=== PATIENT | male | born 1950 | race Caucasian/White ===

== ENCOUNTER 2018-01-03 19:29 | Inpatient (IN) | payer OTHER ==
[~2018-01-03] VITALS: Ht 170.2 cm; Wt 45.4 kg
[2018-01-03 19:30] VITALS: BP 122/77
--- NOTE | 2018-01-03 19:30 | NUR ---
PATIENT BIB [facility] AND TRIAGED TO ER LOBBY.
--- NOTE | 2018-01-03 20:00 | NUR ---
PATIENT EXPRESSING WISH TO BE SEEN. PT LYING ON FLOOR. SECURITY CALLED.
[2018-01-03 21:21] LABS: HEMATOCRIT 44.6 % (36-52); HEMOGLOBIN 14.7 g/dL (12.0-18.0); MEAN CORPUSCULAR HEMOGLOBIN 29 pg (27-31); MEAN CORPUSCULAR HGB CONC 33 g/dL (33-37); MEAN CORPUSCULAR VOLUME 87.4 fL (80-94); PLATELET COUNT (AUTO) 249 K/uL (140-450); RED BLOOD CELL COUNT(AUTO) 5.11 MIL/uL (4.20-6.10); WHITE BLOOD COUNT (AUTO) 17.6 K/uL (4.8-10.8)
[2018-01-03 21:32] LABS: ANION GAP 12.9 (8-16); CARBON DIOXIDE 31.4 mmol/L (21-32); CREATININE 1.1 mg/dL (0.7-1.3); POTASSIUM 4.3 mmol/L (3.5-5.1)
[2018-01-03 21:38] LABS: TOTAL BILIRUBIN 0.6 mg/dL (0.0-1.0)
[2018-01-03 21:49] LABS: LYMPHOCYTES % (MANUAL) 1 % (20-46); MONOCYTES % (MANUAL) 2 % (5-12)
--- NOTE | 2018-01-03 22:10 | NUR ---
67/M C/O N/V X 3 DAYS. ALSO C/O 10/10 SHARP PAIN TO THROAT. DENIES FEVER, REPORTS CHILLS. DENIES CP/SOB. DENIES HEMATEMESIS. PT BEING UNCOOPERATIVE DURING ASSESSMENT. PMH: THROAT CANCER
[2018-01-03] MEDS ORDERED: MORPHINE SULFATE 4 MG/ML SYR IVP ONE (22:25)
[2018-01-03] MEDS ORDERED: ONDANSETRON 4 MG/2 ML VIAL IVP ONE (22:25)
[2018-01-03] MEDS ORDERED: NACL 0.9% 1,000 ML IV ONE (22:25)
--- NOTE | 2018-01-03 23:10 | NUR ---
UNABLE TO ASSESS SKIN, PT REFUSES TO BE ASSESSED. ALSO REFUSES TO CHANGE INTO GOWN.
--- NOTE | 2018-01-04 00:25 | NUR ---
Patient will be admitted to care of [facility]. Admited to TELE. Will go to room 105A. Belongings list completed. BEDSIDE Report to arturo ZAFAR.
[2018-01-04] MEDS ORDERED: ACETAMINOPHEN 325 MG TAB PO PRN (00:30)
[2018-01-04] MEDS ORDERED: HYDROcodone/APAP 7.5/325 MG 1 TAB PO PRN (00:30)
--- NOTE | 2018-01-04 00:30 | NUR ---
ADMITTED PT FROM ER VIA GISSEL. AAOX3, UNCOOPERATIVE. PT REFUSED SKIN CHECK, DOESN'T WANT TO BE TOUCHED. REFUSED MRSA SWAB. REFUSED TO ANSWER ADMITTING QUESTIONS. NO VOMITING AT THIS TIME. NO C/O PAIN. ORIENTED PT TO ROOM. ON NPO. PT ASKED FOR ICE AND JUICE. DR CARRILLO STATED IT'S OKAY TO GIVE PT ICE BUT NOT JUICE. ICE GIVEN TO PT. SAFETY PRECAUTION IN PLACE. CALL LIGHT WITHIN REACH.
[2018-01-04] MEDS ORDERED: LORazepam 2 MG/ML VIAL IM/IVP ONE (00:40)
[2018-01-04] MEDS ORDERED: BENZOCAINE 20% 57 GM CAN MC ONE (00:40)
[2018-01-04] MEDS: NACL 0.45% 1,000 ML IV SCH ×3 (00:45→20:45)
[2018-01-04] MEDS: PIPER/TAZO 3.375GM/D5W PREMIX 50 ML IV SCH ×5 (01:00→23:15)
--- NOTE | 2018-01-04 01:00 | NUR ---
PT KEEPS ON SCREAMING IN THE ROOM. WHEN ASKED WHAT HE WANTS, HE SAID JUICE. EXPLAINED TO PT THAT HE CANNOT HAVE JUICE, THE DOCTOR ORDERED NPO . HE YELLED ON ME AND THREW THE ICE ON THE FLOOR.
[2018-01-04 01:09] LABS: CHOL/HDL RATIO 4.9 (1-4.5); FREE T4 (FREE THYROXINE) 0.99 ng/dL (0.76-1.46); PHOSPHORUS 3.9 mg/dL (2.5-4.9); THYROID STIMULATING HORMONE 2.82 uIU/mL (0.34-3.74)
[2018-01-04 01:21] LABS: PROTHROMBIN TIME 11.3 secs (10.8-13.4)
[2018-01-04] MEDS ORDERED: PIPERACILLIN/TAZOBACTAM 3.375 GM VIAL IV ONE ×2 (01:55→05:03)
[2018-01-04 02:00] VITALS: BP 109/61
--- NOTE | 2018-01-04 03:30 | NUR ---
PT SLEEPING BUT AROUSABLE. NO S/S OF RESP DISTRESS NOTED. NO S/S OF PAIN. SAFETY PRECAUTION IN PLACE. CALL LIGHT WITHIN REACH.
[2018-01-04 04:00] VITALS: BP 125/69
--- NOTE | 2018-01-04 05:15 | NUR ---
PT SLEEPING BUT EASILY AROUSABLE. NO S/S OF PAIN OR DISCOMFORT. NO DISTRESS NOTED. SAFETY PRECAUTION IN PLACE. CALL LIGHT WITHIN REACH.
--- NOTE | 2018-01-04 06:00 | NUR ---
PT WAS ASKED IF IT'S OKAY TO DO X-RAY AND DRAW BLOOD, PT SAID "YES" AND WENT BACK TO SLEEP. NO VOMITING NOTED AT THIS TIME. NO S/S OF PAIN.
[2018-01-04 06:43] LABS: HEMATOCRIT 41.4 % (36-52); HEMOGLOBIN 13.6 g/dL (12.0-18.0); MEAN CORPUSCULAR HEMOGLOBIN 29 pg (27-31); MEAN CORPUSCULAR HGB CONC 33 g/dL (33-37); MEAN CORPUSCULAR VOLUME 87.5 fL (80-94); PLATELET COUNT (AUTO) 190 K/uL (140-450); RED BLOOD CELL COUNT(AUTO) 4.73 MIL/uL (4.20-6.10); RED CELL DISTRIBUTION WIDTH 17.2 % (11.6-13.7); WHITE BLOOD COUNT (AUTO) 12.9 K/uL (4.8-10.8)
--- NOTE | 2018-01-04 06:53 | NUR ---
PATIENT HAS BEEN SCREENED AND CATEGORIZED HIGH NUTRITION RISK. PATIENT WILL BE SEEN WITHIN 1-2 DAYS OF ADMISSION. 01/04/18-01/05/18 LOKI PETERSON MS, RDN
[2018-01-04 07:05] LABS: ANION GAP 12.4 (8-16); CARBON DIOXIDE 28.5 mmol/L (21-32); POTASSIUM 3.9 mmol/L (3.5-5.1)
[2018-01-04 07:13] LABS: MAGNESIUM 2.8 mg/dL (1.8-2.4)
--- NOTE | 2018-01-04 07:15 | NUR ---
ENDORSED PT TO DAY SHIFT NURSE. PT IN STABLE CONDITION. PT STILL SLEEPING BUT EASILY AROUSABLE. ENDORSED CT SCAN CONSENT TO BE SIGNED BY PT.
--- NOTE | 2018-01-04 07:20 | NUR ---
RECEIVED REPORT ABOUT THE PT FROM PROPERTY FIELD INSPECTOR NURSE, PT IS ASLEEP LYING ON THE BED WITH A PERIPHERAL LINE ON LEFT HAND G. 22, NS AT 100ML/HR. NO SIGN OF DISTRESS NOTED. CALL LIGHT WITHIN REACH. WILL MONITOR.
[2018-01-04 07:27] LABS: EOSINOPHILS % (MANUAL) 1 % (0-4); LYMPHOCYTES % (MANUAL) 6 % (20-46); MONOCYTES % (MANUAL) 3 % (5-12)
--- NOTE | 2018-01-04 07:45 | NUR ---
PT IS ASLEEP ON THE BED AND VITAL SIGNS TAKEN, NO SIGN OF DISTRESS NOTED. CALL LIGHT WITHIN REACH. WILL MONITOR..
[2018-01-04 08:00] VITALS: BP 125/73
[2018-01-04] MEDS: LACTOBACILLUS RHAMNOSUS GG 1 EACH CAP PO SCH ×2 (09:00→09:28)
[2018-01-04] MEDS: DOCUSATE SODIUM 100 MG GELCAP PO SCH ×3 (09:00→21:00)
--- NOTE | 2018-01-04 09:00 | NUR ---
PT REFUSED TO TAKE THE AM MEDICATIONS AND REFUSED TO SIGN THE CONSENT FOR CT SCAN OF ABDOMEN AND PELVIS. PT WENT BACK TO SLEEP. NO SIGN OF DISTRESS NOTED. CALL LIGHT WITHIN REACH. WILL MONITOR.
--- NOTE | 2018-01-04 11:07 | NUR ---
01/04/18 RD INITIAL ASSESSMENT COMPLETED PLEASE REFER TO NUTRITION ASSESSMENT UNDER CARE ACTIVITY FOR ESTIMATED NUTRITIONAL NEEDS. RD RECOMMENDATIONS: 1. CONTINUE NPO MEDICALLY APPROPRIATE. 2. CONSIDER INITIATING REGULAR DIET TOLERATED. 3. CONSULT RDN PRN. 4. RD WILL F/U 2-3 DAYS; HIGH RISK. LOKI PETERSON MS, RDN
[2018-01-04 11:22] LABS: PROTHROMBIN TIME 11.7 secs (10.8-13.4)
[2018-01-04 12:00] VITALS: BP 162/96
--- NOTE | 2018-01-04 14:00 | NUR ---
PT PULLED HIS IV LINE OUT AND STARTED TO BE COMBATIVE AND SCREAMING
[2018-01-04] MEDS ORDERED: PROMETHAZINE 25 MG/ML VIAL IM PRN (15:55)
[2018-01-04 16:00] VITALS: BP 134/89
--- NOTE | 2018-01-04 16:00 | NUR ---
PT IS SEATED ON A WHEELCHAIR AND ROAMING AROUND THE STATION AND VOMITED, PT IS NOT BEING COMPLIANT WITH THE MEDICATIONS AND WITH THE DOCTOR.
--- NOTE | 2018-01-04 16:39 | NUR ---
PT REFUSED TO HAVE THE TELE MONITOR PUT ON HIM.
--- NOTE | 2018-01-04 19:05 | NUR ---
ENDORSED PT TO AUTOMOTIVE WELDER NURSE FOR CONTINUITY OF CARE, PT IS ASLEEP ON THE BED AND IS STABLE AT THIS TIME.
--- NOTE | 2018-01-04 19:15 | NUR ---
RECEIVED PATIENT REPORT AT BEDSIDE. PATIENT ASLEEP BUT AROUSABLE. NO S/S OF DISTRESS. PATIENT ON ROOM AIR. IV LINE NOTED TO THE RIGHT FOREARM WITH IVF INFUSING WELL. BED LOWERED WITH CALL LIGHT WITHIN REACH. WILL CONTINUE TO MONITOR
[2018-01-04 20:00] VITALS: BP 140/84
--- NOTE | 2018-01-04 23:45 | NUR ---
PATIENT AWAKE AND STOOD UP TO VOID. PATIENT PROVIDED WITH URINAL. PATIENT VOIDED 100 ML OF CLEAR YELLOW URINE
[2018-01-05] VITALS: BP 147/95
--- NOTE | 2018-01-05 | NUR ---
PT C/O THROAT PAIN. PATIENT OFFERED NORCO PRN BUT REFUSED. NOTIFIED DR SHEEHAN. TORADOL ORDERED FOR PAIN BUT PATIENT BECOMES MORE AGITATED AND REQUESTS FOR MORPHINE. NOTIFIED DR SHEEHAN. TO TALK TO THE PATIENT
--- NOTE | 2018-01-05 01:30 | NUR ---
PATIENT ASLEEP IN BED. NO S/S OF DISTRESS NOTED
--- NOTE | 2018-01-05 04:39 | NUR ---
PER DR SHEEHAN, ANIKA TO ADMINISTER PROMETHAZINE VIA IVP
[2018-01-05] MEDS: PROMETHAZINE 25 MG/ML VIAL IVP PRN ×3 (04:41→23:52)
[2018-01-05] MEDS: PIPER/TAZO 3.375GM/D5W PREMIX 50 ML IV SCH ×4 (06:25→23:51)
[2018-01-05] MEDS: NACL 0.45% 1,000 ML IV SCH ×2 (06:45→07:11)
--- NOTE | 2018-01-05 07:23 | NUR ---
PATIENT REPORT GIVEN AT BEDSIDE. PATIENT ENDORSED IN STABLE CONDITION
--- NOTE | 2018-01-05 07:30 | NUR ---
RECEIVED PT REPORT FROM METAL SHEET ROLLER OPERATOR NURSE. PT SLEEPING, EASILY AROUSED, ASKING FOR ICE AND WATER. NO S/S OF DISTRESS. IV LINE NOTED TO THE RIGHT FOREARM,22G,WITH IVF INFUSING WELL. IV CATH 20G ON RIGHT FA, SL. BED LOWERED WITH CALL LIGHT WITHIN REACH. WILL CONTINUE TO MONITOR
[2018-01-05 07:45] LABS: CARBON DIOXIDE 25.7 mmol/L (21-32); POTASSIUM 3.7 mmol/L (3.5-5.1)
[2018-01-05 07:46] LABS: MAGNESIUM 2.5 mg/dL (1.8-2.4); PHOSPHORUS 2.8 mg/dL (2.5-4.9)
--- NOTE | 2018-01-05 07:50 | NUR ---
VITALS TAKEN, PT HAD ICE AND WATER BUT STILL VOMITING. PROVIDED MORE VOMITING BAGS.
[2018-01-05 08:00] VITALS: BP 140/81
[2018-01-05 08:13] LABS: HEMATOCRIT 37.9 % (36-52); HEMOGLOBIN 12.4 g/dL (12.0-18.0); MEAN CORPUSCULAR HEMOGLOBIN 29 pg (27-31); MEAN CORPUSCULAR HGB CONC 33 g/dL (33-37); MEAN CORPUSCULAR VOLUME 87.7 fL (80-94); PLATELET COUNT (AUTO) 170 K/uL (140-450); RED BLOOD CELL COUNT(AUTO) 4.32 MIL/uL (4.20-6.10); RED CELL DISTRIBUTION WIDTH 16.8 % (11.6-13.7); WHITE BLOOD COUNT (AUTO) 13.3 K/uL (4.8-10.8)
[2018-01-05 08:17] LABS: BASOPHILS % (MANUAL) 0 % (0-2); EOSINOPHILS % (MANUAL) 0 % (0-4); LYMPHOCYTES % (MANUAL) 3 % (20-46); MONOCYTES % (MANUAL) 5 % (5-12)
[2018-01-05] MEDS: LACTOBACILLUS RHAMNOSUS GG 1 EACH CAP PO SCH (09:00)
[2018-01-05] MEDS: DOCUSATE SODIUM 100 MG GELCAP PO SCH ×3 (09:00→21:00)
--- NOTE | 2018-01-05 09:20 | NUR ---
PT TOOK CULTURELLE AND COLACE BUT LATER VOMITED OUT.
--- NOTE | 2018-01-05 09:50 | NUR ---
PT EATING MASHED POTATO AND ENSURE, BUT CONTINUES TO VOMIT.
--- NOTE | 2018-01-05 10:00 | NUR ---
C/O WHOLE BODY PAIN 9/10 AND ASKING FOR MORPHINE. WILL ADMINISTER PAIN MEDS ORDERED.
[2018-01-05] MEDS: MORPHINE SULFATE 4 MG/ML SYR IVP PRN ×4 (10:09→23:58)
--- NOTE | 2018-01-05 11:20 | NUR ---
PROVIDED PT WITH PHENERGAN FOR VOMITING, PT REFUSED AND ASKING FOR MORPHINE AGAIN. C/O OF WHOLE BODY PAIN 06/18, WILL ADMINISTER PAIN MED ORDERED.
[2018-01-05] MEDS: KETOROLAC 30 MG/ML VIAL IM PRN (11:47)
--- NOTE | 2018-01-05 12:50 | NUR ---
IVPB ADMINISTERED, PT SLEEPING, EASILY AROUSED, NO S/S OF ACUTE DISTRESS, BREATHING EVEN AND UNLABORED.
--- NOTE | 2018-01-05 14:00 | NUR ---
PER PT REQUEST, NEW T SHIRT PROVIDED, NEW BLANKETS, SOCKS AND UNDERWEAR PROVIDED.
--- NOTE | 2018-01-05 15:50 | NUR ---
PT WANTS PEANUT BUTTER JELLY, EXPLAINED TO PT THAT HE CAN'T HAVE THAT RIGHT NOW BECAUSE DR ORDERED CLEAR LIQ BUT WILL RELAY THE REQUEST TO DR. PT GOT AGITATED AND STOOD UP TRYING TO SWING HIS ARM. TOLD PT TO SIT DOWN OR WILL CALL SECURITY. PT WENT BACK TO BED, PT REFUSED VITAL SIGNS CHECK. WILL TRY AGAIN LATER.
--- NOTE | 2018-01-05 16:30 | NUR ---
PT IS SLEEPING IN BED, BREATHING EVEN AND UNLABORED. NO DISTRESS NOTED.
--- NOTE | 2018-01-05 17:19 | NUR ---
PT STILL SLEEPING, NO DISTRESS NOTED. RESPIRATION RATE 18.
--- NOTE | 2018-01-05 17:50 | NUR ---
PT WALKED TO THE NURSING STATION, DEMANDING FOOD, HOWEVER, DINNER TRAY HAS ALREADY BEEN SENT TO THE ROOM. PT WANTS SPECIFICALLY MASHED POTATO AND MEATLOAF. PT IS ON CLEAR LIQ DIET. TALKED TO DR MARIE WHO CONTACTED DR STEVEN WHO STATED THAT MASHED POTATO ONLY. PT VOMITED ON THE FLOOR, REFUSING TO GO BACK TO HIS ROOM. SECURITY WAS CALLED.
--- NOTE | 2018-01-05 17:56 | NUR ---
MADE DR MARIE AWARE THAT PT WANTS TO TALK TO THE DOCTOR.
--- NOTE | 2018-01-05 18:30 | NUR ---
SECURITY HELPED PT WENT BACK TO THE ROOM. PT ATE MASHED POTATO AND LATER VOMITED OVER THE WHEELCHAIR.
--- NOTE | 2018-01-05 19:05 | NUR ---
RECEIVED PATIENT REPORT AT BEDSIDE. PATIENT AWAKE, ALERT BUT AGITATED. PATIENT SHOUTING FOR FOOD. PATIENT HAS A BOWL OF MASHED POTATOES AT BEDSIDE. PER MORNING NURSE. PATIENT HAS BEEN VOMITING ALL DAY AND HAS NOT BEEN TOLERATING ANYTHING BY MOUTH WELL. PATIENT SEEN GAGGING INTERMITTENTLY WITH THICK CLEAR LIQUID COMING OUT OF HIS MOUTH. PATIENT CURRENTLY ON CLEAR LIQUID DIET. WILL NOTIFY THE DR. PATIENT ON ROOM AIR. NO SOB. WILL CONTINUE TO MONITOR
--- NOTE | 2018-01-05 19:15 | NUR ---
ENDORSED PT TO MEDIATION COMMISSIONER RN AT BEDSIDE. PT IN STABLE CONDITION.
--- NOTE | 2018-01-05 19:41 | NUR ---
PATIENT IN THE HALLWAY, AGITATED AND ARGUING WITH THE DR TO HAVE SOLID FOOD DIET ORDERED FOR HIM DESPITE HIM NOT TOLERATING PO. PATIENT SEEN GAGGING IN THE HALLWAY AND WAS OFFERED TO BE ESCORTED BACK TO HIS ROOM. PATIENT STATES, "GET AWAY FROM ME BEFORE I KNOCK YOU OUT."
[2018-01-05 21:20] VITALS: BP 129/73
--- NOTE | 2018-01-05 23:52 | NUR ---
PATIENT AWAKE AND AGITATED. PATIENT DEMANDED ICE WATER. ICE WATER GIVEN AND PATIENT STARTED GAGGING SOON HE TOOK SIPS FROM THE CUP. CLEAR LIQUID EMESIS COMING OUT OF HIS MOUTH NOTED. PATIENT INSTRUCTED TO HOLD OFF ON THE WATER BUT PATIENT BECAME MORE AGITATED AND REQUESTED TO HAVE MASHED POTATOES AND PUDDING. PATIENT TOLD THAT HE IS ON A CLEAR LIQUID DIET. PATIENT BECAME MORE ANGRY AND SENDS THE NURSE OUT OF THE ROOM.
[2018-01-06] VITALS: BP 128/72
--- NOTE | 2018-01-06 01:28 | NUR ---
PATIENT ASLEEP IN BED. NO S/S OF DISTRESS NOTED
--- NOTE | 2018-01-06 04:30 | NUR ---
PATIENT ASLEEP IN BED. NO S/S OF DISTRESS
[2018-01-06] MEDS: NACL 0.45% 1,000 ML IV SCH ×3 (05:24→22:45)
[2018-01-06] MEDS: PIPER/TAZO 3.375GM/D5W PREMIX 50 ML IV SCH ×3 (05:24→18:00)
[2018-01-06] MEDS: MORPHINE SULFATE 4 MG/ML SYR IVP PRN ×2 (05:35→10:32)
--- NOTE | 2018-01-06 07:16 | NUR ---
RECEIVED REPORT FROM NIGHTSHIFT NURSE AT BEDSIDE. PATIENT ASLEEP BUT AROUSABLE TO NAME. PATIENT APPEARS AGITATED AT THIS TIME. PATIENT SHOWS NO SIGNS OF RESPIRATORY DISTRESS. PATIENT HAS TWO IV ACCESS POINTS ON BILATERAL ARMS. .45% NS RUNNING INTO PATIENT'S LEFT IV ACCESS 22G FOREARM. PATIENT'S BED IN LOWEST POSITION AT THIS TIME. UPDATED BOARD IN PATIENT'S ROOM AND PUT CALL LIGHT WITHIN REACH OF PATIENT. WILL CONTINUE TO MONITOR PATIENT.
--- NOTE | 2018-01-06 07:16 | NUR ---
PATIENT REPORT GIVEN AT BEDSIDE. PATIENT ENDORSED IN STABLE CONDITION
--- NOTE | 2018-01-06 07:55 | NUR ---
ASKED PATIENT IF I CAN TAKE HIS VITAL SIGNS AND PATIENT REFUSED. PATIENT APPEARS AGITATED. PATIENT VOMITING MINIMAL LIGHT RED VOMITUS AT THIS TIME. WILL CONTINUE TO MONITOR PATIENT.
--- NOTE | 2018-01-06 08:20 | NUR ---
PATIENT AT NURSING STATION AT THIS TIME. PATIENT SEEMS AGITATED. WILL CONTINUE TO MONITOR PATIENT.
[2018-01-06] MEDS: KETOROLAC 30 MG/ML VIAL IM PRN (08:47)
--- NOTE | 2018-01-06 08:58 | NUR ---
CM NOTE INITIAL REVIEW FAXED TO [facility] [phone] PH# [phone] [place] EXT [phone] AND TO [facility] [phone] PH# [phone]
[2018-01-06] MEDS: LACTOBACILLUS RHAMNOSUS GG 1 EACH CAP PO SCH (09:00)
[2018-01-06] MEDS: DOCUSATE SODIUM 100 MG GELCAP PO SCH ×2 (09:00→21:00)
[2018-01-06 10:32] VITALS: BP 127/88
--- NOTE | 2018-01-06 10:48 | NUR ---
PARCEL POST ORDER CLERK NOTE [id number] Bedside swallow evaluation complete following clearance by RN, please refer to PARCEL POST ORDER CLERK evaluation for full report. Pt was very agitated throughout evaluation, often threatening staff w/violence and calling them names. Pt demonstrated functional swallow w/no overt s/sx of aspiration on all tested consistencies, however demonstrated emesis of small bolus x3 following conclusion of swallow evaluation. Recommend: -Regular texture + thin liquids for QOL purposes once cleared for PO diet. Pt has demonstrated awareness of present condition, risks of aspiration/choking, and continues to mandate for PO diet. -STRICT aspiration/GERD precautions as noted: 1) Upright during and 20 min after intake. 2) Pt can feed self, encourage small bites/slow rate/alternating bites and sips. 3) Stop if pulmonary distress noted only. PVE w/rounding MD Bill and MD Oneill + nursing staff, education provided re: results and recommendations following esophagram. Nursing to continue to follow, ST f/u not indicated. G8996: CI G8997: CI G8998: CI Swallow NOMS 4
--- NOTE | 2018-01-06 10:53 | NUR ---
PATIENT IS AGITATED AT THIS TIME. ABLE TO PROVIDE PATIENT LITTLE ICE AND WATER AT THIS TIME. AWAITING RADIOLOGIST AND PROCEDURE AT 1 PM. PROVIDED PATIENT WITH ADDITIONAL PILLOW FOR COMFORT.
--- NOTE | 2018-01-06 11:00 | NUR ---
Assembly Associate Notes: I Attempted to meet with patient during screen, attempting to get accurate information from patient in regards to services, and resources needed upon discharge. Security had to be call and present during screen due to patient been inappropriate, uncooperative, verbally aggressive and threatening staff previously; when requesting ice to the Staff. I introduced myself to patient and my role as a medical communication specialist. Patient was very disrespectful and unwilling to answer any of my questions during screen. Patient was focus on getting security out of his room and was very uncordial with me and security standing by the door to monitor and observed patient's behaviors and monitor my visit with patient. I kept attempting to get some information from patient till finally left the room. Patient was irritated and started yell at other staff; security control room officer Breonna Pool stay in the room with patient. l
--- NOTE | 2018-01-06 11:39 | NUR ---
PATIENT RESTING IN BED AT THIS TIME. NO DISTRESS NOTED. WILL CONTINUE TO MONITOR PATIENT.
--- NOTE | 2018-01-06 12:44 | NUR ---
PATIENT LEFT UNIT VIA WHEELCHAIR TO RADIOLOGY DEPT. PATIENT ACCOMPANIED BY CHARGE NURSE SECURITY, AND WATCH DIAL STONER. PATIENT LEFT IN STABLE CONDITION.
--- NOTE | 2018-01-06 13:15 | NUR ---
PATIENT BACK FROM DIAGNOSTIC TEST. HOLDING OFF ON ALL FOODS FOR NOW. PATIENT IN STABLE CONDITION. AWAITING ORDERS FROM DOCTOR.
--- NOTE | 2018-01-06 13:45 | NUR ---
DR. MARIE TALKED TO PATIENT REGARDING PLACEMENT OF AN NG-TUBE OR SURGERY OF A TUBE IN HIS ABDOMEN. PATIENT REFUSED NG-TUBE AND AGREED TO SURGERY. PATIENT SAYS, "FINE, I'LL STARVE UNTIL SURGERY". WILL FOLLOW UP WITH CONSENT.
--- NOTE | 2018-01-06 14:05 | NUR ---
DR. POTTER TALKED TO PATIENT REGARDING SURGERY. PATIENT DENIED SURGERY AND SAYS "JUST LET ME STARVE, I DO NOT WANT TO RUIN MY BODY". DR. POTTER EXPLAINED ALL THE BENEFITS AND RISKS IF PATIENT DOES NOT GET SURGERY. PATIENT UNDERSTOOD.
--- NOTE | 2018-01-06 14:30 | NUR ---
DISCLOSURE OF HEALTH INFORMATION SIGNED BY PT, VERBALIZED UNDERSTANDING. FAXED TO [phone], FAX CONFIRMATION IN PT'S CHART.
--- NOTE | 2018-01-06 16:10 | NUR ---
SPOKE TO MARISELA FROM MEDICAL RECORDS AT [facility]. MARISELA PULLED PATIENT'S MEDICAL RECORDS AND WILL FAX IT OVER.
--- NOTE | 2018-01-06 16:12 | NUR ---
PATIENT RESTING AT THIS TIME. NO DISTRESS NOTED. WILL CONTINUE TO MONITOR PATIENT.
[2018-01-06 17:25] VITALS: BP 143/101
[2018-01-06] MEDS: LORazepam 2 MG/ML VIAL IM/IVP PRN (17:55)
--- NOTE | 2018-01-06 17:55 | NUR ---
PATIENT PRESENTS WITH AGITATION. ADMINISTERED ATIVAN .5 MG VIA IV LINE. PATIENT TOLERATED WELL.
[2018-01-06] MEDS ORDERED: HALOPERIDOL IM 5 MG/ML VIAL IM SCH (18:21)
--- NOTE | 2018-01-06 18:27 | NUR ---
GAVE HALODOL IM PER DR. CARRILLO'S ORDER. INFORMED DR THAT I GAVE ATIVAN .5 MG AT 17:55. SAID THAT IT IS OKAY TO STILL GIVE MEDICATION FOR PATIENT'S AGITATION.
--- NOTE | 2018-01-06 19:10 | NUR ---
GAVE REPORT TO NIGHTSHIFT NURSE. PATIENT SLEEPING IN BED. PATIENT IN STABLE CONDITION.
--- NOTE | 2018-01-06 19:39 | NUR ---
RECEIVED REPORT FROM DAYSHIFT NURSE AT BEDSIDE FOR CONTINUITY OF CARE. PT SLEEPING. PT HAS IV LFA 22G AND LFA 20.. ON RA, NO S/S OF DISTRESS. PT HAS BEEN HAVING OUTBURST BEING UNCOOPERATIVE. PT WAS GIVEN HALOPERIDOL AND ADIVAN. WILL CONTINUE TO MONITOR,.
--- NOTE | 2018-01-06 20:00 | NUR ---
PT IS NPO D/T OBSTRUCTION OF MOUTH. PT IS REFUSING IV. WILL TRY AGAIN. Addendum: 01/07/18 at 0257 by Shilpa Melo RN RECEIVED PT REPORT WRONG. PT SPEECH EVALUATION IS STATING HE IS ABLE TO HAVE SMALL LIQUIDS LONG HE DOESNT ASPIRATE BUT CT AND XRAY STATE TOTAL ESOPHAGUS OBSTRUCTION.
--- NOTE | 2018-01-06 22:44 | NUR ---
PT IS SLEEPING. NO SOB. NO S/S OF DISTRESS. WILL CONTINUE TO MONITOR.
[2018-01-07] MEDS: PIPER/TAZO 3.375GM/D5W PREMIX 50 ML IV SCH ×5 (01:14→23:47)
--- NOTE | 2018-01-07 01:25 | NUR ---
PT IS SLEEPING. CONNECTED IV FLUIDS AND GIVING IVPB MEDICATION. WILL CONTINUE TO MONITOR.
--- NOTE | 2018-01-07 04:48 | NUR ---
PT IS SLEEPING. NO SOB. NO S/S OF DISTRESS. WILL CONTINUE TO MONITOR.
[2018-01-07 06:11] VITALS: BP 136/91
[2018-01-07 06:57] LABS: BASOPHILS % (AUTO) 0.5 % (0.0-2.0); EOSINOPHILS # (AUTO) 0.1 K/uL (0-0.4); EOSINOPHILS % (AUTO) 1.7 % (0.0-4.0); HEMATOCRIT 36.9 % (36-52); HEMOGLOBIN 12.7 g/dL (12.0-18.0); LYMPHOCYTES # (AUTO) 0.6 K/uL (2.0-11.5); LYMPHOCYTES % (AUTO) 9.3 % (20.5-51.1); MEAN CORPUSCULAR HEMOGLOBIN 30 pg (27-31); MEAN CORPUSCULAR HGB CONC 34 g/dL (33-37); MEAN CORPUSCULAR VOLUME 85.8 fL (80-94); MONOCYTES # (AUTO) 0.4 K/uL (0.8-1.0); NEUTROPHILS # (AUTO) 5.5 K/uL (1.8-7.7); NEUTROPHILS % (AUTO) 82.5 % (42.2-75.2); PLATELET COUNT (AUTO) 143 K/uL (140-450); RED CELL DISTRIBUTION WIDTH 16.5 % (11.6-13.7); WHITE BLOOD COUNT (AUTO) 6.6 K/uL (4.8-10.8)
[2018-01-07 07:00] LABS: ANION GAP 10.5 (8-16); CARBON DIOXIDE 27.8 mmol/L (21-32); CREATININE 0.8 mg/dL (0.7-1.3); POTASSIUM 3.3 mmol/L (3.5-5.1)
[2018-01-07 07:13] LABS: MAGNESIUM 2.2 mg/dL (1.8-2.4); PHOSPHORUS 1.9 mg/dL (2.5-4.9)
--- NOTE | 2018-01-07 07:14 | NUR ---
GAVE REPORT TO DAYSHIFT NURSE AT BEDSIDE FOR CONTINUITY OF CARE.
--- NOTE | 2018-01-07 08:00 | NUR ---
SEMI AUTOMATIC SEWING MACHINE OPERATOR NURSE ENDORSED REPORT AT BEDSIDE. INITIAL ASSESSMENT PERFORMED. PATIENT ASLEEP IN BED. EASILY WOKEN RESPONDS TO COMMANDS. NO ACUTE DISTRESS NOTED. LUNG SOUNDS CLEAR. BOWEL SOUNDS ACTIVE. PATIENT WITH LFA 22G. PATIENT WITH 1/2 NS RUNNING @100ML/HR. SKIN INTACT. ENDORSED THAT PATIENT IS TO BE NPO DT OBSTRUCTED ESOPHAGUS.PENDING SURGEON TO COME AND TALK WITH PATIENT. DR IN DOING ROUNDS THIS AM. DISCUSSED PLAN OF CARE WITH PATIENT.UPDATED BOARD. CALL LIGHT WITHIN REACH. WILL CONT TO MONITOR.
[2018-01-07] MEDS: NACL 0.45% 1,000 ML IV SCH ×2 (08:45→18:50)
[2018-01-07] MEDS: LACTOBACILLUS RHAMNOSUS GG 1 EACH CAP PO SCH (09:00)
[2018-01-07] MEDS: DOCUSATE SODIUM 100 MG GELCAP PO SCH ×2 (09:00→20:42)
--- NOTE | 2018-01-07 10:20 | NUR ---
PATIENT IN BED EASILY WOKEN. DR DEMPSEY IN TO SEE PATIENT AND DISCUSS WITH PATIENT CURRENT PLAN. PATIENT STATING HE WANTS TO EAT AND WANTS TO SEE WHAT SURGERY CAN BE DONE PATIENT INFORMED THAT SURGEON TO COME SEE PATIENT FOR CONSULT. WILL CONT TO MONITOR.
[2018-01-07] MEDS ORDERED: KCL 20 MEQ/WATER INJ PREMIX 100 ML IV SCH (10:30)
[2018-01-07] MEDS: MORPHINE SULFATE 4 MG/ML SYR IVP PRN ×3 (10:35→21:39)
--- NOTE | 2018-01-07 10:35 | NUR ---
PATIENT IN BED REQUESTED PAIN MEDICATION THIS AM. PATIENT ALSO REQUESTING FOOD INFORMED PATIENT THAT HE IS NOT HAVE EAT UNTIL THE SURGEON SEES HIM. PATIENT CONTINUES TO INSIST OF GETTING CRACKERS . INFORMED PATIENT OF RISKS AND BENEFITS X 3 . PATIENT CONTINUE TO INSIST OF GETTING CRACKERS . WILL CONT TO MONITOR.
[2018-01-07] MEDS ORDERED: SODIUM PHOS / POTASSIUM PHOS 1 PKT PDR PO SCH (11:00)
[2018-01-07] MEDS: KETOROLAC 30 MG/ML VIAL IM PRN (12:17)
--- NOTE | 2018-01-07 12:30 | NUR ---
PATIENT REQUESTING PAIN MEDICATION TORADOL GIVEN . ALSO WAS ABLE TO GIVE PATIENT BED BATH AND CHANGE HIS CLOTHING THAT WERE SOILED. PATIENT IRRITATED BUT WILLING TO GET BED BATH. REQUESTED SECURITY FOR NEW CLOTHES WAS GIVEN SWEATS AND THERMAL. PATIENT COVERED WITH 3 BLANKETS AND ROOM ADJUSTED FOR COMFORT. WAITING FOR SURGERY CONSULT. WILL CONT TO MONITOR.
--- NOTE | 2018-01-07 12:52 | NUR ---
FAXED CONCURRENT REVIEW TO [facility] [phone] PHONE [phone] FAXED CONCURRENT REVIEW TO [facility] [phone] PHONE [phone] [facility]
--- NOTE | 2018-01-07 14:10 | NUR ---
PATIENT IN ROOM RESTING WITH EYES CLOSED. EASILY WOKEN. RESP EVEN AND UNLABORED. WILL CONT TO MONITOR.
--- NOTE | 2018-01-07 15:11 | NUR ---
01/07/18 RD FOLLOW UP COMPLETED PLEASE REFER TO NUTRITION PROGRESS NOTE UNDER CARE ACTIVITY FOR ESTIMATED NUTRITION NEEDS. RD RECOMMENDATIONS: 1. CONTINUE NPO MEDICALLY APPROPRIATE 2. CONSULT RD PRN 3. RD WILL F/U 2-3 DAYS; HIGH RISK SAKINA GILLILAND RD
[2018-01-07 16:00] VITALS: BP 140/93
--- NOTE | 2018-01-07 16:00 | NUR ---
PATIENT IN BED RESTING AT THIS TIME. RESP EVEN AND UNLABORED. CALL LIGHT WITHIN REACH. WILL CONT TO MONITOR.
--- NOTE | 2018-01-07 18:00 | NUR ---
PATIENT IN BED REFUSING ZOSYN STATING HE DOES NOT WANT ANYTHING UNTIL HE SEES DOCTOR. DISCUSSED RISKED AND BENEFITS X3 CONTINUE TO REFUSE. MADE AWARE.
--- NOTE | 2018-01-07 18:36 | NUR ---
PATIENT HAD MASHED POTATOES AND WAS VOMITING AFTER EATING MASHED POTATOES.
--- NOTE | 2018-01-07 19:20 | NUR ---
ENDORSED REPORT AT BEDSIDE FOR CONTINUITY OF CARE. PATIENT STABLE IN BED.
--- NOTE | 2018-01-07 19:30 | NUR ---
ASSUMED CARE OF PATIENT, AWAKE, ALERT AND ORIENTED. TELLING THE INCIDENT THAT HAPPENED TO HIM WITH SECURITY. VERBALLY ABUSIVE TO STAFF WELL. CALL LIGHT WITHIN REACH. PATIENT VERBALIZED VERY UPSET AND HUNGRY AND WANTS TO EAT REGULAR DIET.
--- NOTE | 2018-01-07 20:00 | NUR ---
RESIDENT MD AT BEDSIDE TO TALK TO PATIENT AND GAVE 2 SANDWICHES AND JUICE. STILL VERY UPSET AND DEMANDING.
--- NOTE | 2018-01-07 21:00 | NUR ---
VOMITTED ALL THE FOOD INTAKE.
[2018-01-07] MEDS: ONDANSETRON 4 MG/2 ML VIAL IVP PRN (21:25)
[2018-01-07] MEDS: LORazepam 2 MG/ML VIAL IM/IVP PRN (21:25)
--- NOTE | 2018-01-07 21:25 | NUR ---
DANG AND ATIVAN GIVEN PER REQUEST. CARE BOARD UPDATED. CALL LIGHT WITHIN REACH.
[2018-01-07 23:25] VITALS: BP 125/87
--- NOTE | 2018-01-07 23:28 | NUR ---
ASLEEP NO COMPLAINS. AFEBRILE. VITAL SIGNS STABLE. CALL LIGHT WITHIN REACH. NPO AFTER MIDNIGHT.
[2018-01-08] MEDS: NACL 0.45% 1,000 ML IV SCH (01:16)
[2018-01-08] MEDS: MORPHINE SULFATE 4 MG/ML SYR IVP PRN ×3 (01:27→20:42)
--- NOTE | 2018-01-08 04:07 | NUR ---
ASLEEP NO COMPLAINS. CALL LIGHT WITHIN REACH.
[2018-01-08] MEDS: PIPER/TAZO 3.375GM/D5W PREMIX 50 ML IV SCH ×2 (05:09→13:03)
[2018-01-08 06:38] LABS: BASOPHILS % (AUTO) 0.3 % (0.0-2.0); EOSINOPHILS # (AUTO) 0.1 K/uL (0-0.4); EOSINOPHILS % (AUTO) 2.3 % (0.0-4.0); HEMATOCRIT 41.7 % (36-52); HEMOGLOBIN 14.2 g/dL (12.0-18.0); LYMPHOCYTES # (AUTO) 0.8 K/uL (2.0-11.5); LYMPHOCYTES % (AUTO) 12.1 % (20.5-51.1); MEAN CORPUSCULAR HEMOGLOBIN 29 pg (27-31); MEAN CORPUSCULAR HGB CONC 34 g/dL (33-37); MEAN CORPUSCULAR VOLUME 85.7 fL (80-94); MONOCYTES # (AUTO) 0.4 K/uL (0.8-1.0); MONOCYTES % (AUTO) 6.5 % (1.7-9.3); NEUTROPHILS % (AUTO) 78.8 % (42.2-75.2); PLATELET COUNT (AUTO) 157 K/uL (140-450); RED BLOOD CELL COUNT(AUTO) 4.86 MIL/uL (4.20-6.10); RED CELL DISTRIBUTION WIDTH 16.4 % (11.6-13.7); WHITE BLOOD COUNT (AUTO) 6.3 K/uL (4.8-10.8)
[2018-01-08 07:01] LABS: ANION GAP 10.6 (8-16); CARBON DIOXIDE 29.2 mmol/L (21-32); CREATININE 0.8 mg/dL (0.7-1.3); POTASSIUM 3.8 mmol/L (3.5-5.1)
--- NOTE | 2018-01-08 07:21 | NUR ---
ENDORSED CARE AT BEDSIDE WITH RN, PATIENT IN STABLE CONDITION.
--- NOTE | 2018-01-08 07:26 | NUR ---
RECEIVED PT FROM VC++ DEVELOPER NURSE. PT IS ASLEEP AND WITH AN IV LINE ON LEFT HAND G. 20, 1/2 NS RUNNING AT 100ML/HR. SIDE RAILS ARE UP AND NO SIGN OF DISTRESS NOTED. PT IS ON NPO AFTER MIDNIGHT. CALL LIGHT WITHIN REACH. WILL MONITOR
[2018-01-08 08:00] VITALS: BP 156/98
--- NOTE | 2018-01-08 08:15 | NUR ---
PT IS STILL ASLEEP ON THE BED, VITAL SIGNS TAKEN AND NO SIGN OF DISTRESS NOTED. WILL MONITOR.
[2018-01-08] MEDS: DOCUSATE SODIUM 100 MG GELCAP PO SCH ×2 (08:25→21:00)
[2018-01-08] MEDS: LACTOBACILLUS RHAMNOSUS GG 1 EACH CAP PO SCH (08:26)
[2018-01-08] MEDS ORDERED: DEXT 5% / NACL 0.9% 500 ML IV SCH (09:15)
--- NOTE | 2018-01-08 09:57 | NUR ---
PT WAS PUT ON FULL LIQUID DIET, THEN IT WAS CANCELLED AND PT WAS PLACED ON A CLEAR LIQUID DIET. DR. OZUNA CALLED LASHONDA DINERO YESTERDAY REQUESTING MASHED POTATOES AND CHOCOLATE MILK FOR PT. LASHONDA DINERO SENT THE REQUESTED FOOD TO THE PT. Addendum: 01/08/18 at [address]
[2018-01-08] MEDS ORDERED: fentaNYL 0.05 MG/ML VIAL ONE ×2 (10:17→10:19)
[2018-01-08] MEDS ORDERED: diphenhydrAMINE 50 MG/ML VIAL ONE (10:18)
[2018-01-08] MEDS ORDERED: MIDAZOLAM 2 MG/2 ML VIAL ONE (10:18)
[2018-01-08] MEDS: MIDAZOLAM 2 MG/2 ML VIAL IVP SCH ×2 (10:53→14:00)
[2018-01-08] MEDS: fentaNYL 0.05 MG/ML VIAL IVP SCH ×2 (10:54→14:00)
[2018-01-08] MEDS: NACL 0.9% 1,000 ML IV SCH ×2 (11:00→21:36)
[2018-01-08] MEDS: diphenhydrAMINE 50 MG/ML VIAL IVP SCH ×2 (11:00→14:00)
[2018-01-08] MEDS: LORazepam 2 MG/ML VIAL IM/IVP PRN ×2 (15:59→20:52)
[2018-01-08 16:00] VITALS: BP 149/101
--- NOTE | 2018-01-08 16:00 | NUR ---
PT IS AGITATED AND ASKING FOR FOOD BUT IS ONLY ON A CLEAR LIQUID DIET. MEDICATIONS GIVEN TO CALM HER DOWN. PT TOLERATED IT.
--- NOTE | 2018-01-08 16:30 | NUR ---
PT WAS CLEANED UP BY CORDUROY CUTTING SUPERVISOR AND CLOTHES WERE CHANGED, PT IS MADE COMFORTABLE IN BED.
--- NOTE | 2018-01-08 16:57 | NUR ---
CALLED JUAN DAVID AT [facility]. HE SAID THE REVIEW JUST GOES TO [facility] FAXED REVIEW TO [facility] [phone] PHONE [phone].
--- NOTE | 2018-01-08 19:15 | NUR ---
ENDORSED PT TO STORES LABORER NURSE FOR CONTINUITY OF CARE. PT IS AWAKE AND STABLE AT THIS TIME.
--- NOTE | 2018-01-08 19:16 | NUR ---
RECEIVED REPORT AT PT BEDSIDE FROM DAY SHIFT RN, FOR CONTINUITY OF CARE. PATIENT IS AWAKE ON ROOM AIR. ABLE TO MAKE NEEDS KNOWN, ABLE TO FOLLOW COMMANDS. PT SKIN INTACT, WARM AND DRY. PATIENT HAS PERIPHERAL IV SITE TO LEFT FOREARM 20G ASYMPTOMATIC, INTACT, PATENT. RESPIRATIONS EVEN AND UNLABORED. UPDATED BOARD. DISCUSSED PLAN OF CARE WITH PT, PT VERBALIZED UNDERSTANDING. VITAL SIGNS WNL. PT STABLE, NO SIGNS OF DISTRESS NOTED AT THIS TIME. BED IN LOWEST POSITION, CALL LIGHT WITHIN REACH. WILL CONTINUE TO MONITOR.
[2018-01-08] MEDS: ONDANSETRON 4 MG/2 ML VIAL IVP PRN (20:38)
--- NOTE | 2018-01-08 20:45 | NUR ---
PT REFUSED COLACE, ADMINISTERED MORPHINE FOR GENERALIZED PAIN AND ZOFRAN FOR NAUSEA/VOMITING, PT TOLERATED WELL.
--- NOTE | 2018-01-08 21:00 | NUR ---
PT AGITATED AND SCREAMING. CALLED DR SEPULVEDA ON PHONE AND ASKED IF OK TO GIVE ATIVAN BECAUSE ORDER WAS TO BE GIVEN ONLY ONCE AND THEY HAD ALREADY GIVEN. SAID YES OK TO GIVE AGAIN AND HE WOULD CHANGE ORDER TO MAKE IT PRN. ADMINISTERED ATIVAN, PT TOLERATED WELL.
--- NOTE | 2018-01-08 21:15 | NUR ---
PT MOVED FROM ROOM 111-B TO ROOM 110-B, WITH ALL PERSONAL BELONGINGS WITH HIM.
[2018-01-09] VITALS: BP 154/96
--- NOTE | 2018-01-09 | NUR ---
VITAL SIGNS WNL. PT STABLE, NO SIGNS OF DISTRESS NOTED AT THIS TIME. BED IN LOWEST POSITION, CALL LIGHT WITHIN REACH. WILL CONTINUE TO MONITOR.
[2018-01-09] MEDS ORDERED: NACL 0.45% 1,000 ML IV ONE (00:45)
--- NOTE | 2018-01-09 02:01 | NUR ---
SPOKE TO DR SEPULVEDA REGARDING PT GETTING AGGRESSIVE OVER THE FACT HE CAN'T HAVE FOOD. FIRST PT WAS BEING CLEAN BECAUSE HE HAD URINE ALL OVER HIM AND PT SAID " STOP MOVING ME, DON'T TOUCH ME. IF YOU TOUCH ME AGAIN I'LL CUT YOUR FUCKING HEAD OFF BITCH." PT DID NOT ALLOW FOR HIS T-SHIRT TO BE REMOVED EVEN THOUGH IT IS WET WITH URINE. THEN PT STARTED SAYING HE WAS HUNGRY AND WANTED TOAST OR CRACKERS. TRIED TO EXPLAIN CLEAR LIQUID DIET TO PT AND REASONING BEHIND IT BUT PT JUST KEPT INTERRUPTING AND HITTING THE BED RAILS WITH CALL LIGHT AND SAYING THE DR SAID IT WAS OK FOR HIM TO EAT REGULAR FOOD. TALKED TO DR SEPULVEDA ABOUT ALL THIS AND DR SAYS HE WILL COME TALK TO PATIENT.
--- NOTE | 2018-01-09 02:19 | NUR ---
DR. SEPULVEDA FINISHED TALKING TO PT ABOUT ALL TREATMENT OPTIONS AND RATIONALE FOR CLEAR LIQUID DIET. HE ALSO ADDRESSED THE BANGING ON RAILS AND ABUSIVE LANGUAGE PT USES. PT STATED " I'M DONE WITH THIS PLACE, I'M LEAVING." EXPLAINED TO HIM THAT HE COULD LEAVE AMA BUT HE STILL WOULDN'T BE ABLE TO EAT BECAUSE OF THE OBSTRUCTION. PT AGREED TO LET HIMSELF BE TREATED.
--- NOTE | 2018-01-09 04:42 | NUR ---
PT VERY AGITATED AGAIN BANGING ON BED RAILS WITH CALL LIGHT, SAYING "GIVE ME MY FOOD THE DOCTOR SAID I CAN HAVE A CRACKER AND ORANGES. GIVE ME A SANDWICH GIVE ME ANYTHING!" WHEN TOLD DR SEPULVEDA DID NOT SAY THAT AND ONLY SAID HE COULD ONLY HAVE CLEAR LIQUIDS, PT STARTED SAYING, "ARE YOU STUPID OR SOMETHING? IS THIS [facility] FULL OF STUPID PEOPLE?" OFFERED PT JELLO AND PT REFUSED BECAUSE HE JUST ATE ONE AND THEN VOMITED. EXPLAINED TO PT THAT THAT WOULD KEEP HAPPENING BECAUSE OF THE BLOCKAGE, PATIENT STATES "I DON'T CARE I'M HUNGRY!" PT STARTED BANGING ON RAILS AGAIN AND WAS VERY AGITATED. ADMINISTERED ATIVAN PRN ORDERED, PT TOLERATED WELL.
--- NOTE | 2018-01-09 06:05 | NUR ---
INCREASED MORPHINE DRIP AGAIN BECAUSE HEART RATE IS 110, AND RESPIRATIONS ARE 26.
[2018-01-09] MEDS: NACL 0.9% 1,000 ML IV SCH ×3 (06:11→17:00)
[2018-01-09 06:27] LABS: ANION GAP 11.9 (8-16); CARBON DIOXIDE 25.6 mmol/L (21-32); CREATININE 0.6 mg/dL (0.7-1.3); POTASSIUM 3.5 mmol/L (3.5-5.1)
--- NOTE | 2018-01-09 07:26 | NUR ---
ENDORSED PT TO DAY SHIFT RN FOR CONTINUITY OF CARE. PT IN STABLE CONDITION.
--- NOTE | 2018-01-09 07:27 | NUR ---
RECEIVED REPORT FROM RUBBER GASKET INSPECTOR TRIMMER NURSE. PATIENT LYING DOWN IN BED SLEEPING, AROUSABLE BY VOICE. NO DISTRESS NOTED. DENIES ANY PAIN AT THIS TIME. RESPIRATIONS EVEN, UNLABORED, ON ROOM AIR. AAOX1, DROWSY, AGITATED MOOD DUE TO WANTING TO EAT SOLID FOODS. VOMIT NOTED ON TOWELS AND PILLOW CASE. SKIN COLOR APPROPRIATE TO ETHNICITY, WARM TO TOUCH. IV SITE INTACT, PATENT, AND INFUSING IVF PER ORDERS. ABDOMEN SOFT, NON-DISTENDED. LUNGS CTA ON ALL LOBES. REVIEWED PLAN OF CARE WITH PATIENT. PATIENT TOO DROWSY. REINFORCEMENT NEEDED. SAFETY MEASURES IN PLACE, CALL LIGHT WITHIN REACH, FALL PRECAUTIONS IN PLACE. WILL CONTINUE TO MONITOR.
[2018-01-09 08:00] VITALS: BP 144/86
--- NOTE | 2018-01-09 08:45 | NUR ---
PATIENT BANGING ON THE BEDSIDE RAILS SAYING "HE WANTS TO EAT. GIVE ME CRACKERS". PATIENT ON STRICT CLEAR LIQUID DIET DUE TO THROAT CANCER AND OBSTRUCTION ON THE THROAT AND VOMITING EVERYTIME HE EATS SOLID FOODS. NOTIFIED MD. SALAZAR AT BEDSIDE REVIEWING PLAN OF CARE WITH PATIENT. WILL CONTINUE TO MONITOR.
[2018-01-09] MEDS: DOCUSATE SODIUM 100 MG GELCAP PO SCH ×2 (09:00→21:00)
[2018-01-09] MEDS: LACTOBACILLUS RHAMNOSUS GG 1 EACH CAP PO SCH (09:00)
--- NOTE | 2018-01-09 09:18 | NUR ---
PATIENT SITTING IN BED, JELLO GIVEN PER PATIENT REQUESTS. PATIENT REFUSED 0900 MEDICATIONS. SAFETY MEASURES IN PLACE, CALL LIGHT WITHIN REACH. WILL CONTINUE TO MONITOR.
--- NOTE | 2018-01-09 11:00 | NUR ---
PATIENT IN CALMER MOOD, SLEEPING IN BED, AROUSABLE BY VOICE. NO DISTRESS NOTED. DENIES ANY PAIN. CONDITION UNCHANGED. SAFETY MEASURES IN PLACE, CALL LIGHT WITHIN REACH. WILL CONTINUE TO MONITOR.
--- NOTE | 2018-01-09 12:08 | NUR ---
PATIENT LYING DOWN IN BED SLEEPING, AROUSABLE BY VOICE. NO DISTRESS NOTED. CONDITION UNCHANGED. WILL CONTINUE TO MONITOR.
--- NOTE | 2018-01-09 13:02 | NUR ---
PATIENT SITTING IN BED WITH LUNCH TRAY IN FRONT. ASSISTED PATIENT IN EATING. CONDITION UNCHANGED. SAFETY MEASURES IN PLACE, CALL LIGHT WITHIN REACH. WILL CONTINUE TO MONITOR.
--- NOTE | 2018-01-09 13:30 | NUR ---
PATIENT IN AGITATED MOOD AND WANTED TO AMBULATE TO BATHROOM. ASSISTED PATIENT TO AMBULATE TO BATHROOM. PATIENT WANTS DOOR CLOSED FOR PRIVACY BUT IS WEAK, DON'T WANT PATIENT TO FALL. SMALL AMOUNTS OF VOMIT NOTED ON GOWN. WILL CONTINUE TO MONITOR.
[2018-01-09] MEDS: LORazepam 2 MG/ML VIAL IM/IVP PRN (14:01)
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
--- NOTE | 2018-01-09 15:51 | NUR ---
CALL PLACED TO ROCKY SILVERMAN AT [facility] AND INFORMED HER OF HOSPICE EVAL ORDER. PER ROCKY CONTRACTED HOSPICE COMPANIES ARE: [facility], [facility], [facility], [facility], [facility], [facility], [facility], [facility], AND [facility]. CALL PLACED TO [facility] AND SPOKE WITH STACIA IN INTAKE AND PROVIDED HER WITH INFORMATION. [phone] FAX [phone]
--- NOTE | 2018-01-09 17:07 | NUR ---
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 PATIENT CONTINUES TO VOMIT LIGHT REDDISH UPON EATING JELLO. SAFETY MEASURES IN PLACE, CALL LIGHT WITHIN REACH. WILL CONTINUE TO MONITOR.
--- NOTE | 2018-01-09 17:09 | NUR ---
PATIENT WISHES TO LEAVE AMA TO GO EAT AND THEN PLANS TO CHECK BACK INTO [facility]. NOTIFIED PATIENT THAT HE IS NOT ALLOWED TO DO THAT. EXPLAINED THAT IF HE LEAVES AMA, HE CANNOT COME BACK TO HOSPITAL. CONTINUES TO BE AGITATED AND DEMANDING SOLID FOODS. PATIENT IS WEAK AND CANNOT AMBULATE WITHOUT ASSISTANCE. WHEN ASKED HOW IS HE GOING TO LEAVE AMA, HE DOES NOT KNOW. DR. CR NOTIFIED. WILL CONTINUE TO MONITOR.
[2018-01-09] MEDS: MORPHINE SULFATE 4 MG/ML SYR IVP PRN ×2 (18:29→21:39)
--- NOTE | 2018-01-09 18:30 | NUR ---
PATIENT LYING IN BED, COMPLAINTS OF PAIN, WILL MEDICATE WITH MORPHINE PER ORDERS. CONTINUES TO REMAIN AGITATED MOOD AND REQUESTS FOR SOLID FOOD. SAFETY MEASURES IN PLACE, CALL LIGHT WITHIN REACH. WILL CONTINUE TO MONITOR.
--- NOTE | 2018-01-09 18:35 | NUR ---
[facility] CALLED TO SCHEDULE AN APPOINTMENT WITH PATIENT FOR EVALUATION. PATIENT AWARE AND SPOKE TO [facility] AND THEY ARE SCHEDULED FOR EVALUATION APPOINTMENT TOMORROW AT 0730 AM TOMORROW. SAFETY MEASURES IN PLACE, CALL LIGHT WITHIN REACH. WILL CONTINUE TO MONITOR.
--- NOTE | 2018-01-09 19:24 | NUR ---
GAVE REPORT TO MORTGAGE LOAN PROCESSING CLERK NURSE FOR CONTINUITY OF CARE. PATIENT IN STABLE CONDITION.
--- NOTE | 2018-01-09 19:25 | NUR ---
PATIENT REPORT RECEIVED FROM MORNING NURSE AT BEDSIDE. PATIENT IS AWAKE AND ALERT, LYING IN BED, TAPPING ON THE SIDE RAILS. PATIENT KEEPS ASKING FOR FOOD. TOLD HIM HE IS ON CLEAR LIQUID DIET. PATIENT STATED "YOU DON'T KNOW WHAT YOU'RE TALKING ABOUT." BED IN LOWEST POSITION, SIDE RAILS UP. BED ALARM ON AND CALL LIGHT WITHIN REACH. WILL CONTINUE TO MONITOR.
--- NOTE | 2018-01-09 19:40 | NUR ---
PATIENT SEEN BY KARMEN HUNT
--- NOTE | 2018-01-09 20:00 | NUR ---
PATIENT SEEN BY DR. SEPULVEDA. PATIENT EXPLAINED THAT HE HAS SERIOUS ASPIRATION RISK. AND EATING COULD LEAD TO SERIOUS CONSEQUENCES. STILL REQUESTS TO EAT FOOD AGAINST MEDICAL ADVICE. PAPER SIGNED.
--- NOTE | 2018-01-09 20:17 | NUR ---
CHARGE NURSE LORRIE WITH PATIENT. GIVING HIM FOOD.
--- NOTE | 2018-01-09 21:07 | NUR ---
Patient requested to eat, yelling and screaming and calling the nursing site supervisor phone stating that he is 95# and we are not allowing him to eat and he is going to if he does not eat, he was explained that the food is getting stuck in his esophagus and going into his lungs and he keep vomiting when he eats . He is not listening and was is willing to sign a paper against medical advice to eat. He keep saying that he swallowed the mash potatoes and he did not vomit. MD met with patient and explained the risks of aspiration and he should not eat solid food. Patient insisted on eating and he signed the waver to eat. Also he was discussed with him at length that if his heart would to stop, he does not want chest compression and said do not bring me back. Patient verbalized understanding the code status and the chest compression and he does not want the chest compression. Hospice personal also met with the patient and signed in for hospice.
[2018-01-09] MEDS: PROMETHAZINE 25 MG/ML VIAL IVP PRN (21:40)
--- NOTE | 2018-01-09 23:43 | NUR ---
PATIENT VOMITING. TRIED TO HELP HIM. BUT PATIENT SAID "GET OUT OF MY ROOM!" Addendum: 01/09/18 at 2345 by Justin Machado RN PATIENT THREATENING TO THROW URINAL AT ME IF I DONT LEAVE.
[2018-01-10] VITALS: BP 145/87
--- NOTE | 2018-01-10 00:08 | NUR ---
CHANGED PATIENTS SHEETS AND TRIED TO CHANGE PATIENT'S GOWN. PATIENT KEPT YELLING AND BEING UNCOOPERATIVE. DR. SEPULVEDA SPEAKING TO PATIENT RIGHT NOW
[2018-01-10] MEDS: MORPHINE SULFATE 4 MG/ML SYR IVP PRN ×3 (00:50→13:09)
[2018-01-10] MEDS: LORazepam 2 MG/ML VIAL IM/IVP PRN ×4 (00:50→20:05)
--- NOTE | 2018-01-10 01:30 | NUR ---
CHECKED ON PATIENT. PATIENT IS ASLEEP. NO SIGNS AND SYMPTOMS OF DISTRESS NOTED. BREATHING EVEN AND UNLABORED. WILL CONTINUE TO MONITOR.
[2018-01-10] MEDS: NACL 0.9% 1,000 ML IV SCH ×3 (02:26→23:00)
--- NOTE | 2018-01-10 03:25 | NUR ---
CHECKED ON PATIENT. PATIENT IS ASLEEP. NO SIGNS AND SYMPTOMS OF DISTRESS NOTED. BREATHING EVEN AND UNLABORED. WILL CONTINUE TO MONITOR.
--- NOTE | 2018-01-10 06:01 | NUR ---
PATIENT COMPLAINED OF GENERALIZED PAIN. ADMINISTERED PAIN MEDS ORDERED. PATIENT KEPT ASKING FOR CRACKERS. TOLD HIM THAT HE VOMITED THE SOLID FOOD THAT HE ATE EARLIER. PATIENT IN DENIAL Addendum: 01/10/18 at 0732 by Justin Machado RN PATIENT SAYS HE THROWS UP WHEN HE'S ANGRY. TOLD HIM HE THROWS UP BECAUSE OF THE BLOCKAGE IN HIS ESOPHAGUS, PATIENT STATES "YOU DON'T KNOW WHAT YOU'RE TALKING ABOUT"
--- NOTE | 2018-01-10 06:07 | NUR ---
PATIENT OUT OF BED. TRIED TO HELP BACK TO BED. PATIENT YELLED "GET AWAY FROM ME BITCH!" CHARGE NURSE PAULINO SPEAKING TO PATIENT
--- NOTE | 2018-01-10 06:16 | NUR ---
PATIENT IN A WHEELCHAIR IN THE HALLWAY WITH SECURITY
--- NOTE | 2018-01-10 07:00 | NUR ---
PATIENT BEING BELLIGERANT. YELLING OBSCENETIES AND BEING COMBATIVE. SECURITY WITH PATIENT. PATIENT BACK IN BED, PUT ON RESTRAINTS.
--- NOTE | 2018-01-10 07:25 | NUR ---
PATIENT REPORT GIVEN TO MORNING NURSE AT BEDSIDE FOR CONTINUITY OF CARE. PATIENT IS IN STABLE CONDITION
[2018-01-10 08:00] VITALS: BP 150/95
[2018-01-10] MEDS: DOCUSATE SODIUM 100 MG GELCAP PO SCH ×2 (09:00→20:06)
[2018-01-10] MEDS ORDERED: HALOPERIDOL IM 5 MG/ML VIAL IM SCH ×2 (09:00→20:07)
[2018-01-10] MEDS: LACTOBACILLUS RHAMNOSUS GG 1 EACH CAP PO SCH (09:00)
--- NOTE | 2018-01-10 10:49 | NUR ---
VM FROM MARINO AT [facility] [phone] EXT [phone]. CALLED MARINO AND LEFT VM MESSAGE WITH DCM DIRECT LINE TO CALL BACK.
--- NOTE | 2018-01-10 11:12 | NUR ---
1030 MET WITH PT AT BEDSIDE TO DISCUSS DISCHARGE PLAN. PT NOT VERY COOPERATIVE BUT WAS CALM. PT STATES THAT HE NO LONGER RESIDES AT THE LISTED [place] ADDRESS AND HE HAS NOT HAD RECENT COMMUNICATION WITH HIS SISTER SO ESSENTIALLY PT IS HOMELESS AT THIS TIME. DISCUSSED WITH HIM HOSPICE SERVICE AND HE IS IN AGREEMENT. EXPLAINED TO HIM THAT HE NEEDS TO PROVIDE INFORMATION TO HOSPICE COMPANY IN ORDER FOR THEM TO ASSIST HIM WITH FINDING A SNF TO RECEIVE HOSPICE SERVICES IN.
[2018-01-10] MEDS ORDERED: POTASSIUM PHOSPHATE 15 MM in NACL 0.9% 250 ML IV SCH (12:30)
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
[2018-01-10] MEDS ORDERED: VALPROIC ACID 250 MG/5 ML UDC PO SCH ×2 (12:37→21:00)
[2018-01-10 13:00] LABS: APPEARANCE,URINE CLEAR (CLEAR); BILIRUBIN,URINE NEGATIVE (NEGATIVE); BLOOD, URINE NEGATIVE (NEGATIVE); COLOR,URINE YELLOW (YELLOW); LEUKOCYTE ESTERASE ,URINE NEGATIVE (NEGATIVE); NITRITE, URINE NEGATIVE (NEGATIVE); UGLUCOSE NEGATIVE (NEGATIVE)
--- NOTE | 2018-01-10 13:15 | NUR ---
PATIENT SITTING IN BEDSIDE CHAIR WITH SECURITY AT BEDSIDE. PATIENT WAS AT NURSING STATION AND REFUSED TO GET BACK TO BED WITH VIOLENT BEHAVIOR. PATIENT REFUSES TO GO BACK TO BED AT THIS TIME WITH SECURITY. SCHEDULED MEDICATIONS DUE GIVEN. COMPLAINTS OF PAIN, MORPHINE GIVEN PER ORDERS. SAFETY MEASURES IN PLACE, CALL LIGHT WITHIN REACH. WILL CONTINUE TO MONITOR.
[2018-01-10 13:24] LABS: BARBITURATE, URINE POS. ng/ml (NEG <=200); BENZODIAZEPINE, URINE POS. ng/mL (NEG <=200); CANNABINOID, URINE NEG. ng/mL (NEG <=50); COCAINE, URINE NEG. ng/mL (NEG <=300); OPIATE, URINE POS. ng/mL (NEG <=2000); PHENCYCLIDINE SCREEN,URINE NEG. ng/mL (NEG <=25)
--- NOTE | 2018-01-10 14:16 | NUR ---
1230 MARIELLA FROM [facility] HERE TO EVALUATE PT. MARIELLA SPOKE WITH DR DEMPSEY AND DISCUSSED THAT PT'S BEHAVIORS AND PAIN NEEDS TO BE MANAGED PRIOR TO FINDING SNF FOR PT FOR HOSPICE SERVICES. MARIELLA ALSO REQUESTED DR DEMPSEY SPEAK WITH DR AYALA PALLIATIVE SOLAR INSTALLATION MANAGER REGARDING POC. PER MARIELLA WILL CONTINUE TO MONITOR STATUS OF PT AND WILL LOOK FOR SNF PLACEMENT.
--- NOTE | 2018-01-10 14:27 | NUR ---
FAXED PROGRESS NOTES TO [facility] [phone] PHONE [phone] ROCKY X [phone] CHART REVIEWED.
--- NOTE | 2018-01-10 15:25 | NUR ---
01/10/18 RD FOLLOW UP COMPLETED PLEASE REFER TO NUTRITION ASSESSMENT UNDER CARE ACTIVITY FOR ESTIMATED NUTRITIONAL NEEDS. 1. CONTINUE CLEAR LIQUID DIET MEDICALLY APPROPRIATE 2. RECOMMEND BOOST BREEZE TIB -THIS WILL PROVIDE AN ADDITIONAL 750 KCALS AND 27 GM PROTEIN, PROVIDING PT WITH 1315 KCALS TOTAL AND 33 GM OF PROTEIN WITH OTHER CLEAR LIQUIDS, MEETING 92% OF PT'S ENERGY NEEDS, 58% OF PROTEIN NEEDS. 3. RD WILL F/U 2-3 DAYS; HIGH RISK SAKINA GILLILAND RD
--- NOTE | 2018-01-10 15:56 | NUR ---
PATIENT LYING IN BED, STILL AGITATED MOOD, BUT CALMER. IV HYDRATION RECONNECTED AND SCHEDULED POTASSIUM PHOSPATE VIA IV STARTED. SAFETY MEASURES IN PLACE, CALL LIGHT WITHIN REACH. WILL CONTINUE TO MONITOR.
[2018-01-10 16:00] VITALS: BP 148/91
--- NOTE | 2018-01-10 16:43 | NUR ---
[facility] EMBOSSING CALENDER OPERATOR CALLED FOR UPDATE ON PATIENT. ANSWERED ALL HER QUESTIONS REGARDING PATIENT. WILL CONTINUE TO MONITOR.
--- NOTE | 2018-01-10 17:44 | NUR ---
PATIENT SLEEPING AT THIS TIME, AROUSABLE BY VOICE. NO DISTRESS NOTED. IV SITE INTACT, PATENT, AND INFUSING IV MEDICATION PER ORDERS. SAFETY MEASURES IN PLACE, CALL LIGHT WITHIN REACH. WILL CONTINUE TO MONITOR.
--- NOTE | 2018-01-10 18:45 | NUR ---
ASSISTED SNOWSPORT INSTRUCTOR IN CHANGING PATIENT. WILL CONTINUE TO MONITOR.
--- NOTE | 2018-01-10 19:25 | NUR ---
GAVE REPORT TO HEADER OPERATOR NURSE FOR CONTINUITY OF CARE. PATIENT IN STABLE CONDITION.
--- NOTE | 2018-01-10 19:27 | NUR ---
RECEIVED REPORT FROM NIGHT RN. PT RESTING IN BED. AAOX3. NO S/S OF ACUTE DISTRESS. PT DENIES PAIN. IV SITE PATENT AND INTACT. CALL LIGHT WITHIN REACH. SAFETY MEASURES ENSURED. WILL CONTINUE TO MONITOR.
[2018-01-10 20:00] VITALS: BP 142/96
--- NOTE | 2018-01-10 20:05 | NUR ---
PT AT NURSING STATION STATING HE WANTS TO EAT. EXPLAINED TO PATIENT THAT HE CAN'T EAT. PT AGITATED AND CUSSING, THREATENING TO HIT STAFF. SECURITY CALLED. PT TAKEN BACK TO BED. SOFT WRIST RESTRAINTS APPLIED. ATIVAN GIVEN. PT EXTREMELY AGITATED TRYING TO HIT STAFF, BITING AND SPITTING. DR. MCCARTHY MADE AWARE. WILL CONTINUE TO MONITOR.
[2018-01-10] MEDS ORDERED: diphenhydrAMINE 50 MG/ML VIAL IVP SCH (20:08)
[2018-01-10] MEDS ORDERED: LORazepam 2 MG/ML VIAL IM/IVP PRN (22:10)
--- NOTE | 2018-01-11 00:15 | NUR ---
PT SLEEPING IN BED. NO S/S OF ACUTE DISTRESS. WILL CONTINUE TO MONITOR.
--- NOTE | 2018-01-11 00:56 | NUR ---
PT AGITATED AND YELLING DR. SEPULVEDA MADE AWARE.
[2018-01-11] MEDS: LORazepam 2 MG/ML VIAL IM/IVP PRN ×4 (01:00→21:56)
--- NOTE | 2018-01-11 04:31 | NUR ---
PT CHANGED AFTER BOWEL MOVEMENT. PT REPOSITIONED. PT PULLING AT RESTRAINTS. NO S/S OF ACUTE DISTRESS. PT DENIES PAIN. CALL LIGHT WITHIN REACH. SAFETY MEASURES ENSURED. WILL CONTINUE TO MONITOR.
[2018-01-11] MEDS ORDERED: HYDROcodone/APAP 7.5/325 MG 1 TAB PO PRN (07:15)
--- NOTE | 2018-01-11 07:26 | NUR ---
ENDORSED PLAN OF CARE TO NIGHT RN.
--- NOTE | 2018-01-11 07:30 | NUR ---
RECEIVED REPORT FROM ANALYSIS REPORTING DEVELOPER NURSE, PT IS SLEEPING IN BED BUT EASILY AWAKEN, PT IS AAOX3, UNSTEADY, AMBULATES WITH ASSISTANCE, PT HAS IV ON HIS LEFT FA, PATENT, INTACT, FLUSHING WELL, NO S/S OF RESPIRATORY DISTRESS OR DISCOMFORT NOTED, SAFETY/FALL PRECAUTIONS ARE IN PLACE, CALL LIGHT WITHIN REACH, WILL CONTINUE TO MONITOR.
[2018-01-11 07:45] LABS: BASOPHILS % (AUTO) 0.5 % (0.0-2.0); EOSINOPHILS # (AUTO) 0.1 K/uL (0-0.4); EOSINOPHILS % (AUTO) 0.9 % (0.0-4.0); HEMATOCRIT 37.5 % (36-52); HEMOGLOBIN 12.9 g/dL (12.0-18.0); LYMPHOCYTES # (AUTO) 0.7 K/uL (2.0-11.5); LYMPHOCYTES % (AUTO) 9.6 % (20.5-51.1); MEAN CORPUSCULAR HEMOGLOBIN 29 pg (27-31); MEAN CORPUSCULAR HGB CONC 34 g/dL (33-37); MEAN CORPUSCULAR VOLUME 85.1 fL (80-94); MONOCYTES # (AUTO) 0.4 K/uL (0.8-1.0); MONOCYTES % (AUTO) 6.2 % (1.7-9.3); NEUTROPHILS # (AUTO) 5.7 K/uL (1.8-7.7); NEUTROPHILS % (AUTO) 82.8 % (42.2-75.2); PLATELET COUNT (AUTO) 164 K/uL (140-450); RED BLOOD CELL COUNT(AUTO) 4.41 MIL/uL (4.20-6.10); RED CELL DISTRIBUTION WIDTH 16.6 % (11.6-13.7); WHITE BLOOD COUNT (AUTO) 6.8 K/uL (4.8-10.8)
[2018-01-11] MEDS: NACL 0.9% 1,000 ML IV SCH ×2 (07:48→19:00)
[2018-01-11 07:57] LABS: ANION GAP 10.6 (8-16); CARBON DIOXIDE 27.7 mmol/L (21-32); CREATININE 0.5 mg/dL (0.7-1.3); POTASSIUM 3.3 mmol/L (3.5-5.1)
[2018-01-11 08:00] VITALS: BP 156/98
[2018-01-11 08:00] LABS: MAGNESIUM 1.7 mg/dL (1.8-2.4); PHOSPHORUS 1.8 mg/dL (2.5-4.9)
[2018-01-11] MEDS: LACTOBACILLUS RHAMNOSUS GG 1 EACH CAP PO SCH (09:00)
[2018-01-11] MEDS: DOCUSATE SODIUM 100 MG GELCAP PO SCH ×2 (09:00→21:00)
--- NOTE | 2018-01-11 09:25 | NUR ---
PATIENT REFUSED COLACE AND CULTURELLE. PATIENT IS ASKING TO EATING "REAL" FOOD. I LET THE PATIENT KNOW HIS FOOD TRAY WAS HERE AND THAT HE WAS ON A CLEAR LIQUID DIET RIGHT NOW.
--- NOTE | 2018-01-11 10:30 | NUR ---
PATIENT VOMITED ON HIS SHIRT AND GOWN. PATIENT GOWN, PILLOW CASE AND BED SHEETS WERE CHANGED. PATIENT IS ASKING FOR SOLID FOOD. I EXPLAINED TO THE PATIENT I COULD NOT GIVEN HIM SOLID FOOD ONLY CLEAR LIQUIDS. PT AGITATED ASKING FOR MORE FOOD, BANGING ON THE SIDE RAIL AND TABLE.
--- NOTE | 2018-01-11 12:00 | NUR ---
PT SLEEPING IN BED AT THIS TIME, NO S/S OF DISTRESS NOTED, SAFETY/FALL PRECAUTIONS ARE IN PLACE, CALL LIGHT WITHIN REACH.
[2018-01-11] MEDS: DIVALPROEX 500 MG TABEC PO SCH ×2 (13:00→21:00)
[2018-01-11] MEDS ORDERED: MAG SULF 2000 MG/WATER PREMIX 50 ML IV SCH (14:36)
[2018-01-11] MEDS ORDERED: POTASSIUM PHOSPHATE 15 MM in NACL 0.9% 250 ML IV SCH (15:00)
--- NOTE | 2018-01-11 15:00 | NUR ---
PATIENT REPOSITIONED IN BED FOR COMFORT. PT ASKING FOR FOOD, REINFORCEMENT WAS GIVEN ON CURRENT DIET.
--- NOTE | 2018-01-11 16:00 | NUR ---
PATIENT REFUSED VITAL SIGN CHECK. PT STATED HE WAS NOT GOING TO LET US CHECK HIS BLOOD PRESSURE UNTIL HE GOT A SANDWICH TO EAT.
--- NOTE | 2018-01-11 16:30 | NUR ---
PATIENT IS BANGING ON BEDSIDE RAIL, PT THROW HOSPITAL PHONE ON THE FLOOR, PT IS AGITATED PULLING ON IV POLE. WILL MEDICATE WITH PRN ATIVAN FOR AGITATION.
--- NOTE | 2018-01-11 19:19 | NUR ---
ENDORSED PT TO MOTORCOACH OPERATOR NURSE FOR CONTINUITY OF CARE. PT STABLE AT THIS TIME.
--- NOTE | 2018-01-11 21:56 | NUR ---
ADMINISTERED ATIVAN PER ORDER FOR AGITATION, PT TOLERATED WELL. WILL CONTINUE TO MONITOR.
--- NOTE | 2018-01-11 21:56 | NUR ---
ADMINISTERED ATIVAN BECAUSE PT IS VERY AGITATED SCREAMING AND BANGING ON BED RAILS.
--- NOTE | 2018-01-11 22:45 | NUR ---
SPOKE WITH DR SEPULVEDA REGARDING PT RECEIVING ATIVAN AND STILL VERY AGITATED AND THROWING HIS URINAL AND ALL THE OBJECTS ON HIS BEDSIDE TABLE, AND PT HITTING BED RAILS VERY HARD WITH CALL LIGHT. DR RUST PUT ORDERS IN.
[2018-01-11] MEDS ORDERED: HALOPERIDOL IM 5 MG/ML VIAL IM ONE (22:50)
--- NOTE | 2018-01-11 23:06 | NUR ---
PT STILL VERY AGITATED, SCREAMING, THROWING OBJECTS, AND BANGING THE BED RAILS. ADMINISTERED HALDOL PER ORDER, PT TOLERATED WELL.
--- NOTE | 2018-01-12 00:15 | NUR ---
PT REMOVED RESTRAINTS AND GOT OUT OF BED WITH WEAK GAIT, OFFERED TO HELP HIM GET BACK INTO BED, AND PT STARTED TO THREATEN "DON'T TOUCH ME, I'LL PUNCH YOU," ALL WHILE SWINGING HIS FIST TRYING TO PUNCH ME. NIVIA BUTLER AND MASON CLARK HELPED PUT PT BACK IN BED AND THE SOFT WRIST RESTRAINTS.
--- NOTE | 2018-01-12 01:30 | NUR ---
PT SLEEPING QUIETLY NO S/S OF PAIN OR DISTRESS SOFT RESTRAINTS RELEASED ,SKIN INTEGRITY INTACT AND CIRCULATION GOOD. PT CAP REFILL LESS THAN 2 SECONDS V/S STABLE NO S/S OF PAIN OR DISTRESS AT THIS TIME. SIDE RAILS UP X 2 AND BED IN LOW POSITION, CALL ELAINE IN REACH.
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
[2018-01-12] MEDS: DIVALPROEX 500 MG TABEC PO SCH ×2 (05:00→13:00)
[2018-01-12] MEDS: NACL 0.9% 1,000 ML IV SCH ×2 (05:00→15:00)
--- NOTE | 2018-01-12 07:15 | NUR ---
ENDORSED PT TO DAY SHIFT ANDRADE CAVAZOS FOR CONTINUITY OF CARE. PT IN STABLE CONDITION.
--- NOTE | 2018-01-12 07:16 | NUR ---
RECEIVED REPORT FROM SPORTS MARKETING INTERNSHIP NURSE, PT IS SLEEPING IN BED BUT EASILY AWAKEN, PT IS AAOX3, UNSTEADY, AMBULATES WITH ASSISTANCE, PT HAS IV ON HIS LEFT FA, PATENT, INTACT, FLUSHING WELL, NO S/S OF RESPIRATORY DISTRESS OR DISCOMFORT NOTED, SAFETY/FALL PRECAUTIONS ARE IN PLACE, CALL LIGHT WITHIN REACH, WILL CONTINUE TO MONITOR.
[2018-01-12 08:00] VITALS: BP 143/100
[2018-01-12 08:02] LABS: BASOPHILS % (AUTO) 0.4 % (0.0-2.0); EOSINOPHILS # (AUTO) 0.1 K/uL (0-0.4); EOSINOPHILS % (AUTO) 0.7 % (0.0-4.0); HEMATOCRIT 38.2 % (36-52); HEMOGLOBIN 13.2 g/dL (12.0-18.0); LYMPHOCYTES # (AUTO) 0.5 K/uL (2.0-11.5); LYMPHOCYTES % (AUTO) 6.3 % (20.5-51.1); MEAN CORPUSCULAR HEMOGLOBIN 30 pg (27-31); MEAN CORPUSCULAR HGB CONC 35 g/dL (33-37); MEAN CORPUSCULAR VOLUME 85.2 fL (80-94); MONOCYTES # (AUTO) 0.5 K/uL (0.8-1.0); MONOCYTES % (AUTO) 5.5 % (1.7-9.3); NEUTROPHILS # (AUTO) 7.3 K/uL (1.8-7.7); NEUTROPHILS % (AUTO) 87.1 % (42.2-75.2); PLATELET COUNT (AUTO) 184 K/uL (140-450); RED BLOOD CELL COUNT(AUTO) 4.48 MIL/uL (4.20-6.10); RED CELL DISTRIBUTION WIDTH 16.8 % (11.6-13.7); WHITE BLOOD COUNT (AUTO) 8.4 K/uL (4.8-10.8)
[2018-01-12 08:07] LABS: ANION GAP 9.3 (8-16); CARBON DIOXIDE 27.7 mmol/L (21-32); CREATININE 0.5 mg/dL (0.7-1.3)
[2018-01-12 08:12] LABS: MAGNESIUM 2.2 mg/dL (1.8-2.4); PHOSPHORUS 2.1 mg/dL (2.5-4.9)
[2018-01-12] MEDS: ONDANSETRON 4 MG/2 ML VIAL IVP PRN (08:23)
[2018-01-12] MEDS: LORazepam 2 MG/ML VIAL IM/IVP PRN ×3 (08:34→18:47)
[2018-01-12] MEDS ORDERED: SERTRALINE 50 MG TAB PO SCH (09:00)
[2018-01-12] MEDS: DOCUSATE SODIUM 100 MG GELCAP PO SCH ×2 (09:00→21:00)
[2018-01-12] MEDS: LACTOBACILLUS RHAMNOSUS GG 1 EACH CAP PO SCH (09:00)
--- NOTE | 2018-01-12 09:00 | NUR ---
PT REFUSED MEDICATION AT THIS TIME.
--- NOTE | 2018-01-12 10:23 | NUR ---
PATIENT PULLED IV, CATHETER TIP INTACT. WILL INSERT A NEW IV.
--- NOTE | 2018-01-12 10:50 | NUR ---
NEW IV INSERTED ON LEFT FA, 22 G. PT TOLERATED WELL. WILL CONTINUE TO MONITOR.
[2018-01-12] MEDS: PROMETHAZINE 25 MG/ML VIAL IVP PRN (11:06)
--- NOTE | 2018-01-12 13:00 | NUR ---
PT REFUSED MEDICATION. WILL CONTINUE TO MONITOR.
--- NOTE | 2018-01-12 13:45 | NUR ---
PATIENT IS TRYING TO GET OUT OF BED, PT IS WEAK AND UNSTEADY WHEN TRYING TO STAND, PT IS NOT BEING COOPERATIVE AND IT ATTEMPTING TO HIT STAFF. PT STATED HE WANTED TO LEAVE AMA DR. LLOYD NOTIFIED. PER DR. LLOYD PUT PATIENT ON RESTRAINTS, GIVE ANTI ANXIETY MEDICATION. PER. DR. LLOYD HE WILL HAVE PSYCH EVALUATE THE PATIENT.
[2018-01-12] MEDS ORDERED: HALOPERIDOL IM 5 MG/ML VIAL IM SCH (14:15)
[2018-01-12] MEDS ORDERED: VALPROATE SODIUM 500 MG in NACL 0.9% 100 ML IV SCH (14:44)
--- NOTE | 2018-01-12 17:00 | NUR ---
DR. WEBB AND DR. NICHOLE AT BEDSIDE SPEAKING WITH PT.
--- NOTE | 2018-01-12 19:30 | NUR ---
ENDORSED PT SERVICE DELIVERY CONSULTANT NURSE FOR CONTINUITY OF CARE. PT RESTLESS AND AGITATED. RE ORIENTED PATIENT BACK INTO BED WITH STAFF ASSISTANCE.
--- NOTE | 2018-01-12 19:31 | NUR ---
RECEIVED REPORT AT PT BEDSIDE FROM DAY SHIFT RN, FOR CONTINUITY OF CARE. PATIENT IS AWAKE ON ROOM AIR. ABLE TO MAKE NEEDS KNOWN, ABLE TO FOLLOW COMMANDS. PT SKIN INTACT, WARM AND DRY. PATIENT HAS PERIPHERAL IV SITE TO LEFT FOREARM 24G ASYMPTOMATIC, INTACT, PATENT. RESPIRATIONS EVEN AND UNLABORED. UPDATED BOARD. PT RESTLESS, AGITATED, AND VERY AGGRESSIVE DURING CHANGE OF SHIFT REPORT. PTP KICKING AND SWINGING FISTS. REAPPLIED RESTRAINTS WITH HELP FORM STAFF. VITAL SIGNS WNL. PT STABLE, NO SIGNS OF DISTRESS NOTED AT THIS TIME. BED IN LOWEST POSITION, CALL LIGHT WITHIN REACH. WILL CONTINUE TO MONITOR.
[2018-01-12] MEDS: POTASSIUM CHL 20 MEQ/NACL 0.9% 1,000 ML IV SCH (20:15)
--- NOTE | 2018-01-12 20:45 | NUR ---
PT SLEEPING EASILY AROUSABLE, RESPIRATIONS EVEN AND UNLABORED, NO S/S OF PAIN OR DISTRESS NOTED, NO BEHAVIORAL ISSUES NOTED AT THIS TIME. RESTRAINTS REMOVED CIRCULATION CHECKED AND CAP REFILL LESS THAN 2 SECONDS, SKIN INTACT WITH NO S/S OF INJURY NOTED, CALL ELAINE IN REACH BED IN LOW POSITION.
[2018-01-12] MEDS: VALPROATE SODIUM 500 MG in NACL 0.9% 100 ML IV SCH (20:55)
[2018-01-13] MEDS: PROMETHAZINE 25 MG/ML VIAL IVP PRN ×3 (00:20→16:22)
--- NOTE | 2018-01-13 00:20 | NUR ---
PT FEELING NAUSEOUS, ADMINISTERED PHENERGAN IVP, PT TOLERATED WELL. PT BP IS ELEVATED AT THE TIME, AT 155/101. NO SIGNS OF DISTRESS NOTED AT THIS TIME. BED IN LOWEST POSITION, CALL LIGHT WITHIN REACH. WILL CONTINUE TO MONITOR.
[2018-01-13 01:26] VITALS: BP 155/101
[2018-01-13] MEDS: LORazepam 2 MG/ML VIAL IM/IVP PRN ×4 (01:31→21:01)
--- NOTE | 2018-01-13 01:31 | NUR ---
PT YELLING, RESTLESS AND AGITATED. ADMINISTERED ATIVAN PER ORDER, PT TOLERATED WELL. Addendum: 01/13/18 at 0342 by Deneen Holly RN DISREGARD.
--- NOTE | 2018-01-13 01:35 | NUR ---
PT YELLING, RESTLESS AND AGITATED. ADMINISTERED ATIVAN PER ORDER, PT TOLERATED WELL.
--- NOTE | 2018-01-13 02:05 | NUR ---
PT C/O PAIN AT IV SITE. THERE IS SOME SWELLING TO ARM, WILL START NEW IV.
[2018-01-13] MEDS: VALPROATE SODIUM 500 MG in NACL 0.9% 100 ML IV SCH ×3 (05:01→21:06)
--- NOTE | 2018-01-13 05:48 | NUR ---
PT STABLE, RESTING, NO SIGNS OF DISTRESS NOTED AT THIS TIME. BED IN LOWEST POSITION, CALL LIGHT WITHIN REACH. WILL CONTINUE TO MONITOR.
--- NOTE | 2018-01-13 07:21 | NUR ---
ENDORSED PT TO DAY SHIFT RN FOR CONTINUITY OF CARE. PT IN STABLE CONDITION.
--- NOTE | 2018-01-13 07:31 | NUR ---
REPORT RECEIVED PM NURSE. PT IN STABLE CONDITION NOT IN ANY ACUTE DISTRESS. IV SITE INTACT AND PATENT. BED LOCKED IN LOW POSITION. CALL ELAINE WITHIN REACH. WILL CONTINUE TO MONITOR.
[2018-01-13 08:00] VITALS: BP 143/85
[2018-01-13] MEDS: DOCUSATE SODIUM 100 MG GELCAP PO SCH ×3 (08:08→21:07)
[2018-01-13] MEDS: LACTOBACILLUS RHAMNOSUS GG 1 EACH CAP PO SCH ×2 (08:09→09:00)
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
--- NOTE | 2018-01-13 13:00 | NUR ---
CHECKED IN ON PT. PT STILL ASLEEP BUT IN STABLE CONDITION NOT IN ANY ACUTE DISTRESS. WILL CONTINUE TO MONITOR.
--- NOTE | 2018-01-13 13:16 | NUR ---
FAXED PROGRESS NOTES FROM 01/11/, 01/12 AND 01/13 TO [facility] [phone] PHONE [phone] ROCKY Hogan [phone]
--- NOTE | 2018-01-13 13:28 | NUR ---
Grass Farmer Notes: I attempted to contact patient's sister Nila Garland at to make contact and to inform her of patient status. There was no response from Mrs. Garland, phone continue calling with no response; there was no voicemail available for these personal lines underwriter to leave her voice mail. Grass Farmer will attempt to call the number again later on the day to follow up as needed.
--- NOTE | 2018-01-13 14:16 | NUR ---
01/13/18 RD FOLLOW UP COMPLETED PLEASE REFER TO NUTRITION PROGRESS NOTE UNDER CARE ACTIVITY FOR ESTIMATED NUTRITIONAL NEEDS. 1. CONTINUE FULL LIQUID DIET MEDICALLY APPROPRIATE 2. RECOMMEND HEALTH SHAKE TID. -THIS WILL PROVIDE AN ADDITIONAL 300 KCALS AND 9 GM PROTEIN, PROVIDING PT WITH 900 KCALS TOTAL AND 27 GM OF PROTEIN WITH OTHER FULL LIQUIDS. 3. RD WILL F/U 2-3 DAYS; HIGH RISK SAKINA GILLILAND RD
[2018-01-13 16:00] VITALS: BP 163/96
--- NOTE | 2018-01-13 16:10 | NUR ---
PT ATTEMPTING TO GET OUT OF BED, VOMITED X1, PT YELLING, SCREAMING "I WANT TO EAT", "I WANT TO LEAVE!" REFUSES TO ACCEPT HELP TO GET BACK ON BED, PT ATTEMPTS TO KICK NURSES, RIGHT FA IV WITH SWELLING, HARD TO FLUSH, INFILTRATED, IV DC'D, CATH TIP INTACT, BLEEDING CONTROLLED.
--- NOTE | 2018-01-13 16:30 | NUR ---
PT YELLING. LINEN AND GOWN WERE CHANGED. THREATENING AND SAYING NASTY THINGS TO AUTO BODY MECHANIC AND MYSELF. ATIVAN AND PHENERGAN GIVEN. PT TOLERATED WELL. WILL CONTINUE TO MONITOR.
[2018-01-13] MEDS ORDERED: POTASSIUM PHOSPHATE 15 MM in NACL 0.9% 250 ML IV SCH (17:00)
[2018-01-13] MEDS: POTASSIUM CHL 20 MEQ/NACL 0.9% 1,000 ML IV SCH (18:17)
--- NOTE | 2018-01-13 19:43 | NUR ---
REPORT GIVEN TO CHUNG. PT IN STABLE CONDITION.
--- NOTE | 2018-01-13 19:45 | NUR ---
RECEIVED PT FROM BLAIR RN PT AAOX3 RESTING ON BED NOT DISTRESS NOTED AT THIS TIME IV ON LEFT FA INFUSING WELL INITIAL ASSESSMENT DONE
[2018-01-13 20:00] VITALS: BP 150/100
--- NOTE | 2018-01-13 23:10 | NUR ---
ATIVAN GIVEN FOR AGITATION SLEEPING AT THS TIME REPOSITIONED Q2H IV ON LEFT AC INFUSING WELL
[2018-01-13] MEDS: KCL 20 MEQ/WATER INJ PREMIX 100 ML IV SCH (23:34)
[2018-01-14] MEDS: KCL 20 MEQ/WATER INJ PREMIX 100 ML IV SCH (01:00)
--- NOTE | 2018-01-14 01:39 | NUR ---
PT SLEEPING NOT SIGNS OF DISTRESS NOTED IV ON LEFT FA INFUSING WELL
[2018-01-14] MEDS: LORazepam 2 MG/ML VIAL IM/IVP PRN ×2 (01:58→08:49)
--- NOTE | 2018-01-14 02:12 | NUR ---
POTASSIUM INFUSING VERY PAINFUL THE RATE IS DECREASED
--- NOTE | 2018-01-14 02:14 | NUR ---
K RIDER DOES NOT HAVE XYLOCAINE AND PT COMPLAIN VERY PAINFULIVPB ON LEFT FA INFUSING DR SEPULVEDA NOTIFY AND ORDER TO STOP AND THE NEXT K RIDDER WILL BE GIVEN IN AM WHEN PHARMACY IS HERE
[2018-01-14 04:00] VITALS: BP 158/90
[2018-01-14] MEDS: VALPROATE SODIUM 500 MG in NACL 0.9% 100 ML IV SCH (04:45)
--- NOTE | 2018-01-14 05:00 | NUR ---
SPONGE BATH GIVEN LINEN CHANGED NOT DISTRESS NOTED PT GETTING SLEEP AFTER SPONGE BATH
[2018-01-14] MEDS: POTASSIUM CHL 20 MEQ/NACL 0.9% 1,000 ML IV SCH ×2 (05:35→22:15)
--- NOTE | 2018-01-14 06:28 | NUR ---
PT SLEEPING WELL NOT DISTRESS NOTED AT THIS TIME PT WILL BE ENDORSED TO DAY SHIFT NURSE FOR CONTINUITY OF CARE
[2018-01-14 07:00] LABS: BASOPHILS % (AUTO) 0.6 % (0.0-2.0); EOSINOPHILS % (AUTO) 0.7 % (0.0-4.0); HEMATOCRIT 38.5 % (36-52); LYMPHOCYTES # (AUTO) 0.7 K/uL (2.0-11.5); LYMPHOCYTES % (AUTO) 10.6 % (20.5-51.1); MEAN CORPUSCULAR HEMOGLOBIN 29 pg (27-31); MEAN CORPUSCULAR HGB CONC 34 g/dL (33-37); MONOCYTES # (AUTO) 0.3 K/uL (0.8-1.0); MONOCYTES % (AUTO) 4.4 % (1.7-9.3); NEUTROPHILS # (AUTO) 5.5 K/uL (1.8-7.7); NEUTROPHILS % (AUTO) 83.7 % (42.2-75.2); PLATELET COUNT (AUTO) 174 K/uL (140-450); RED BLOOD CELL COUNT(AUTO) 4.48 MIL/uL (4.20-6.10); RED CELL DISTRIBUTION WIDTH 17.5 % (11.6-13.7); WHITE BLOOD COUNT (AUTO) 6.6 K/uL (4.8-10.8)
[2018-01-14 07:09] LABS: ANION GAP 10.9 (8-16); CARBON DIOXIDE 28.1 mmol/L (21-32); CREATININE 0.5 mg/dL (0.7-1.3)
--- NOTE | 2018-01-14 07:10 | NUR ---
RECEIVED REPORT FROM DIRECTOR [facility]URSING NURSE, PT IS SLEEPING IN BED BUT EASILY AWAKEN, PT IS AAOX2, PT HAS GENERALIZED WEAKNESS, NO S/S OF RESPIRATORY DISTRESS OR DISCOMFORT NOTED, SAFETY/FALL PRECAUTIONS ARE IN PLACE, CALL LIGHT WITHIN REACH, WILL CONTINUE TO MONITOR.
[2018-01-14 07:24] LABS: MAGNESIUM 2.1 mg/dL (1.8-2.4); PHOSPHORUS 2.7 mg/dL (2.5-4.9)
[2018-01-14 08:00] VITALS: BP 154/101
[2018-01-14] MEDS: DOCUSATE SODIUM 100 MG GELCAP PO SCH ×2 (08:49→21:00)
[2018-01-14] MEDS: LACTOBACILLUS RHAMNOSUS GG 1 EACH CAP PO SCH (08:49)
--- NOTE | 2018-01-14 08:49 | NUR ---
PT AGITATED, ATTEMPTING TO GET OUT OF BED, PT RE ORIENTED BACK INTO BED. PT STILL ATTEMPTING TO GET OUT OF BED. WILL MEDICATE WITH PRN ATIVAN AT THIS TIME.
[2018-01-14] MEDS: PROMETHAZINE 25 MG/ML VIAL IVP PRN ×2 (10:46→18:14)
[2018-01-14] MEDS ORDERED: HALOPERIDOL IM 5 MG/ML VIAL IM SCH (11:30)
--- NOTE | 2018-01-14 11:30 | NUR ---
PER DR. SALVADOR WILL TRANSFER PT TO TELE AND WILL PUT IN AN ORDER FOR LIVIA GUZMAN.
--- NOTE | 2018-01-14 11:30 | NUR ---
PATIENT ATTEMPTING TO GET OUT OF BED, PT IS UNSTEADY ON HIS FEET, PT RE ORIENTED BACK INTO BED, PT ATTEMPTING TO HIT STAFF. DR. LA NOTIFIED.
[2018-01-14] MEDS ORDERED: VALPROATE SODIUM IV SCH (13:00)
[2018-01-14] MEDS ORDERED: NACL 0.9% IV SCH (13:00)
--- NOTE | 2018-01-14 13:26 | NUR ---
FAXED PROGRESS NOTES, CONSULT FROM DR. GODINEZ AND MED SHEET TO [facility] [phone] PHONE [phone] ROCKY X [phone] CHART REVIEWED.
--- NOTE | 2018-01-14 13:30 | NUR ---
PT SLEEPING IN BED AT THIS TIME, NO S/S OF RESPIRATORY DISTRESS OR DISCOMFORT NOTED, CALL LIGHT WITHIN REACH.
--- NOTE | 2018-01-14 15:45 | NUR ---
PT SLEEPING IN BED AT THIS TIME.
[2018-01-14 16:00] VITALS: BP 149/100
--- NOTE | 2018-01-14 17:15 | NUR ---
PT RESTING IN BED, SHOUTING HE WANTS HIS FOOD. I LET THE PATIENT KNOW THAT HIS FOOD TRAY WOULD BE HERE AROUND 1730.
--- NOTE | 2018-01-14 19:10 | NUR ---
ENDORSED PT TO SECURITY AMBASSADOR NURSE FOR CONTINUITY OF CARE. PT STABLE AT THIS TIME.
--- NOTE | 2018-01-14 19:20 | NUR ---
RECEIVED REPORT FROM DAY SHIFT NURSE MACY-ANDRADE. PT IS SLEEPING IN BED BUT EASILY AWAKEN, AAOX2, ON ROOM AIR WITH IV LEFT FA #22G. SKIN INTACT. PT HAS GENERALIZED WEAKNESS, NO S/S OF RESPIRATORY DISTRESS OR DISCOMFORT NOTED AT THIS TIME. UPDATED WHITE BOARD. BED IN THE LOWEST POSITION, BED BREAKS LOCKED AND BED ALARM ON. BED SIDE TABLE AND CALL LIGHT WITHIN REACH. WILL CONTINUE TO MONITOR.
[2018-01-14 20:00] VITALS: BP 150/93
--- NOTE | 2018-01-14 20:00 | NUR ---
PT CONTINUES TO SLEEP. WILL CONTINUE TO MONITOR.
[2018-01-14] MEDS: HALOPERIDOL IM 5 MG/ML VIAL IVP SCH (21:36)
[2018-01-14] MEDS: LORazepam 2 MG/ML VIAL IVP SCH (21:36)
--- NOTE | 2018-01-14 21:46 | NUR ---
VITAL SIGNS TAKEN AND SCHEDULED MEDICATION GIVEN AND TOLERATED WELL. PT REFUSED COLACE YELLING HE WANTED TO EAT FOOD. OFFERED JELLO PART OF HIS CLEAR LIQUID DIET AND PT REFUSED. WILL CONTINUE TO MONITOR.
[2018-01-15] VITALS: BP 141/99
[2018-01-15] MEDS: PROMETHAZINE 25 MG/ML VIAL IVP PRN ×2 (00:10→16:50)
--- NOTE | 2018-01-15 00:24 | NUR ---
VITAL SIGNS TAKEN AND TOLERATED WELL. EMESIS ON THE BED. NIVIA RACHEL ASSISTED WITH LINEN CHANGE. PT CONTINUES TO VOMIT. ADMINISTERED PHENERGAN ORDERED. PT CONTINUES TO YELL AND IS AGGRESSIVE. WILL CONTINUE TO MONITOR.
--- NOTE | 2018-01-15 02:00 | NUR ---
PT CONTINUES TO SLEEP. OCCASIONALLY HE WILL YELL AND THEN FALL BACK TO SLEEP. HAS NOT HAD VOMIT EPISODE SINCE MEDICATED. WILL CONTINUE TO MONITOR.
[2018-01-15 04:00] VITALS: BP 126/82
--- NOTE | 2018-01-15 04:00 | NUR ---
VITAL SIGNS TOLERATED WELL. VOMIT ONCE ON TOWEL THAT WAS PLACED ON CHEST-SMALL AMOUNT. YELLS INCOMPREHENSIBLE WORDS EVERY SO OFTEN THEN RETURNS TO SLEEP. WILL CONTINUE TO MONITOR.
--- NOTE | 2018-01-15 06:00 | NUR ---
PT CONTINUES TO SLEEP. NO S/S OF RESPIRATORY DISTRESS OR DISCOMFORT NOTED AT THIS TIME. WILL YELL EVERY SO OFTEN THEN FALL BACK ASLEEP. WILL CONTINUE TO MONITOR.
--- NOTE | 2018-01-15 07:05 | NUR ---
ENDORSED PT CARE TO DAY SHIFT NURSE TARAH FOR CONTINUITY OF CARE. PT IN STABLE CONDITION RESTING IN BED.
--- NOTE | 2018-01-15 07:10 | NUR ---
RECEIVED REPORT FROM SUPERVISOR LAUNDRY NURSE, PT IS SLEEPING IN BED BUT EASILY AWAKEN, PT IS AAOX2, PT HAS IV ON HIS LEFT FA, PATENT, INTACT, FLUSHING WELL, PT HAS SEVERE WEAKNESS, NO S/S OF RESPIRATORY DISTRESS OR DISCOMFORT NOTED, SAFETY/FALL PRECAUTIONS ARE IN PLACE, CALL LIGHT WITHIN REACH, WILL CONTINUE TO MONITOR.
[2018-01-15 08:00] VITALS: BP 135/89
[2018-01-15] MEDS: HALOPERIDOL IM 5 MG/ML VIAL IVP SCH ×2 (08:52→21:17)
--- NOTE | 2018-01-15 08:52 | NUR ---
PT ATTEMPTING TO GET OUT OF BED AND THROWING CALL LIGHT REMOTE ON THE FLOOR. PT RE ORIENTED BACK INTO BED, PT STILL AGITATED AND VERBALLY ABUSIVE WILL GIVE DUE HALDOL AT THIS TIME.
[2018-01-15] MEDS: LACTOBACILLUS RHAMNOSUS GG 1 EACH CAP PO SCH (08:56)
[2018-01-15] MEDS: DOCUSATE SODIUM 100 MG GELCAP PO SCH ×2 (08:56→21:17)
--- NOTE | 2018-01-15 08:57 | NUR ---
PACHECO MCGUIRE HELD, PT IS UNABLE TO SWALLOW PILLS. BED OF THE HEAD IS ELEVATED, ASPIRATION PRECAUTIONS ARE IN PLACE, CALL LIGHT WITHIN REACH, WILL CONTINUE TO MONITOR.
[2018-01-15] MEDS: LORazepam 2 MG/ML VIAL IVP SCH ×2 (09:00→21:17)
--- NOTE | 2018-01-15 10:10 | NUR ---
PT SLEEPING IN BED, HEAD OF THE BED IS ELEVATED TO SEMI FOWLERS POSITION FOR ASPIRATION PRECAUTIONS. WILL CONTINUE TO MONITOR.
[2018-01-15 12:00] VITALS: BP 148/89
--- NOTE | 2018-01-15 12:21 | NUR ---
ENDORSED PT TO ANDRADE JAMISON FOR CONTINUITY OF CARE. PT IS SLEEPING IN BED, NO S/S OF RESPIRATORY DISTRESS OR DISCOMFORT NOTED. PT STABLE AT THIS TIME.
[2018-01-15] MEDS: LORazepam 2 MG/ML VIAL IM/IVP PRN (15:55)
[2018-01-15] MEDS: POTASSIUM CHL 20 MEQ/NACL 0.9% 1,000 ML IV SCH (15:56)
[2018-01-15 16:00] VITALS: BP 137/90
--- NOTE | 2018-01-15 16:01 | NUR ---
PT ATTEMPTING TO GET OUT OF BED, TRIES TO BITE NURSES HAND WITH CARE, ATIVAN GIVEN AT THIS TIEM
--- NOTE | 2018-01-15 16:45 | NUR ---
FAXED DR GODINEZ CONSULT AND MED LIST TO [facility] NO PROGRESS NOTES IN CHART. [phone] PHONE [phone] ROCKY [phone]
--- NOTE | 2018-01-15 16:50 | NUR ---
PT SITTING UP IN BED ATTEMPTING TO GET OUT OF BED, VOMITED MOD AMOUNT OF WHAT APPEARS TO BE PUDDING ON THE FLOOR, PT SCREAMING STATING "I WANNA LEAVE, I WANNA GO" PHENERGRAN GIVEN AT THIS TIME
--- NOTE | 2018-01-15 17:50 | NUR ---
PT BEING ASSISTED BY PAPER AND PRINTS RESTORER WITH DINNER (FULL LIQ) TAKING SMALL AMOUNTS.
--- NOTE | 2018-01-15 18:30 | NUR ---
PT FOUND WITH BOTH LEGS HANGING OFF THE BED RAIL, ATTEMPTING TO GET UP, SCREAMING TO NURSES, "DON'T TOUCH ME! YOU SUTUPID BIT" PT ATTEMPTS TO BITE WHEN HANDS ARE NEAR HIS MOUTH. VOMITED MOD AMOUNT OF WHITE EMESIS, PT REPOSITIONED IN BED, PILLOWS ARRANGED FOR COMFORT, IVF INFUSING WELL, IV SITE WNL, PIPE CONTINUE TO MONITOR, ALL SAFETY MEASURES IN PLACE
--- NOTE | 2018-01-15 19:30 | NUR ---
REPORT GIVEN TO TUCKER ZAFAR, PT IN STABLE CONDITION.
--- NOTE | 2018-01-15 19:31 | NUR ---
RECEIVED BEDSIDE REPORT FROM DAY SHIFT NURSE SHAHEEN RN, PT STABLE, NO DISTRESS NOTED, IV TO L FA 20G RUNNING 1/2NS WITH 20MEQ KCL @60ML/HR, PATENT INTACT, PT ON ROOM AIR NO SOB, INITIAL ASSESSMENT DONE, ALL SAFETY PRECAUTION MET, WILL CONTINUE TO MONITOR.
[2018-01-15 20:00] VITALS: BP 147/104
--- NOTE | 2018-01-15 21:17 | NUR ---
ADMINISTERED DUE MEDICATION TO PT, PT VOMITED PO MEDICATION ABOUT 5 MINUTES AFTER ADMINISTRATION, PT STABLE, NO DISTRESS NOTED, CALL LIGHT WITHIN REACH, WILL CONTINUE TO MONITOR.
--- NOTE | 2018-01-15 22:10 | NUR ---
HELPED PT TO DRINK PO WATER, PT DRANK A LITTLE THAN VOMITED THE LIQUID, THAN STATED, BITCH I WANT WATER, YOU WHORE, PT KEPT SAYING BAD WORDS TO AIDS AND NURSE, PT RESTING ON BED, NO DISTRESS NOTED, CALL LIGHT WITHIN REACH, WILL CONTINUE TO MONITOR.
[2018-01-16] VITALS: BP 156/95
--- NOTE | 2018-01-16 00:01 | NUR ---
CHECKED ON PT, PT STABLE, NO DISTRESS NOTED, CALL LIGHT WITHIN REACH, WILL CONTINUE TO MONITOR.
--- NOTE | 2018-01-16 01:15 | NUR ---
DRY CHAIN PULLER LOWERED ALARM ON TELE MONITOR, PT HR NORMAL, SR WITH NO ABNORMALITIES, IT IS UNKNOWN WHY THE TELE MONITOR KEEPS ALARMING, PT STABLE, NO DISTRESS NOTED, CALL LIGHT WITHIN REACH, WILL CONTINUE TO MONITOR.
--- NOTE | 2018-01-16 03:30 | NUR ---
PT SLEEPING, NO DISTRESS NOTED, CALL LIGHT WITHIN REACH, WILL CONTINUE TO MONITOR.
[2018-01-16 04:00] VITALS: BP 141/94
--- NOTE | 2018-01-16 05:10 | NUR ---
CHECKED ON PT, PT SLEEPING, NO DISTRESS NOTED, CALL LIGHT WITHIN REACH, WILL CONTINUE TO MONITOR
[2018-01-16 06:52] LABS: BASOPHILS % (AUTO) 0.3 % (0.0-2.0); EOSINOPHILS % (AUTO) 0.2 % (0.0-4.0); HEMATOCRIT 37.5 % (36-52); HEMOGLOBIN 12.9 g/dL (12.0-18.0); LYMPHOCYTES # (AUTO) 0.6 K/uL (2.0-11.5); LYMPHOCYTES % (AUTO) 6.2 % (20.5-51.1); MEAN CORPUSCULAR HEMOGLOBIN 30 pg (27-31); MEAN CORPUSCULAR HGB CONC 34 g/dL (33-37); MEAN CORPUSCULAR VOLUME 86.6 fL (80-94); MONOCYTES # (AUTO) 0.5 K/uL (0.8-1.0); MONOCYTES % (AUTO) 5.9 % (1.7-9.3); NEUTROPHILS % (AUTO) 87.4 % (42.2-75.2); PLATELET COUNT (AUTO) 165 K/uL (140-450); RED BLOOD CELL COUNT(AUTO) 4.33 MIL/uL (4.20-6.10); RED CELL DISTRIBUTION WIDTH 17.2 % (11.6-13.7); WHITE BLOOD COUNT (AUTO) 9.2 K/uL (4.8-10.8)
[2018-01-16 07:00] LABS: CARBON DIOXIDE 27.1 mmol/L (21-32); CREATININE 0.5 mg/dL (0.7-1.3); POTASSIUM 4.1 mmol/L (3.5-5.1)
--- NOTE | 2018-01-16 07:20 | NUR ---
ENDORSED PLAN OF CARE TO DAY SHIFT NURSE RAMY ZAFAR, PT STABLE, NO DISTRESS NOTED, CALL LIGHT WITHIN REACH.
--- NOTE | 2018-01-16 07:22 | NUR ---
RECEIVED REPORT FROM BOILERMAKER INDUSTRIAL BOILERS NURSE TUCKER AT BEDSIDE. PT IS ASLEEP WITH VISIBLE RESPIRATIONS, INTRODUCED SELF AND UPDATED BOARD. PT IS AAOX2. O2 SAT 98% ON RA. NO SIGNS OF DISTRESS. BED IN LOW POSITION, WHEELS LOCKED, BED ALARM ON. WILL CONTINUE TO MONITOR.
[2018-01-16 08:00] VITALS: BP 150/95
--- NOTE | 2018-01-16 08:54 | NUR ---
PT IS AWAKE AND TRIED GETTING OUT OF BED ASKING FOR FOOD. STATED "GIVE ME MY FOOD." SAT PT UP AND GAVE BREAKFAST TRAY. PT STATED "I WANT MORE FOOD, ARE YOU DUMB?" TOLD PT HE HAS FOOD, HE ATTEMPTED TO EAT AND SPILLED ON HIMSELF. PT WENT BACK TO SLEEP. WILL CONTINUE TO MONITOR.
[2018-01-16] MEDS: DOCUSATE SODIUM 100 MG GELCAP PO SCH ×2 (09:00→21:00)
[2018-01-16] MEDS: LACTOBACILLUS RHAMNOSUS GG 1 EACH CAP PO SCH (09:00)
[2018-01-16] MEDS: HALOPERIDOL IM 5 MG/ML VIAL IVP SCH ×2 (09:24→21:27)
--- NOTE | 2018-01-16 09:24 | NUR ---
ADMINISTERED HALDOL. PT WAS CURSING AT NURSE AND ENERGY DERIVATIVES TRADER WHEN TRYING TO CLEAN PT AND CHANGE LINENS. PT WAS YELLING "WHAT ARE YOU DOING? GET AWAY FROM ME YOU F*IN B*. AND ASKING WHERE'S MY FOOD" NON ADMINISTERED COLACE AND CULTURELLE DUE TO PT SPITTING OUT FOOD. GAVE BED BATH AND REPOSITIONED PT IN BED. LYING ON LEFT LATERAL. PT WENT BACK TO SLEEP. NO SIGNS OF DISTRESS. BED ALARM ON, WILL CONTINUE TO MONITOR.
[2018-01-16] MEDS: POTASSIUM CHL 20 MEQ/NACL 0.9% 1,000 ML IV SCH (10:35)
--- NOTE | 2018-01-16 11:12 | NUR ---
PT WAS TRYING TO GET OUT OF BED. ASSISTED BACK TO BED. PT WAS YELLING AND ASKING FOR CALL LIGHT. PLACED CALL LIGHT WITHIN REACH. NO SIGNS OF DISTRESS. WILL CONTINUE TO MONITOR.
[2018-01-16 12:00] VITALS: BP 159/87
--- NOTE | 2018-01-16 14:47 | NUR ---
01/16/18 RD FOLLOW UP COMPLETED PLEASE REFER TO NUTRITION ASSESSMENT UNDER CARE ACTIVITY FOR ESTIMATED NUTRITIONAL NEEDS. 1. CONTINUE FULL LIQUID DIET MEDICALLY APPROPRIATE 2. CONTINUE HEALTH SHAKE TID. -THIS WILL PROVIDE AN ADDITIONAL 300 KCALS AND 9 GM PROTEIN, PROVIDING PT WITH 900 KCALS TOTAL AND 27 GM OF PROTEIN WITH OTHER FULL LIQUIDS. 3. RD WILL F/U 2-3 DAYS; HIGH RISK SAKINA IGLLIL[address] RD
[2018-01-16] MEDS: PROMETHAZINE 25 MG/ML VIAL IVP PRN (15:04)
--- NOTE | 2018-01-16 15:04 | NUR ---
PT WAS TRYING TO GET OUT OF BED AND VOMITED OVER BED AND ON SELF. SMALL AMOUNT OF EMESIS NOTED. PT WAS YELLING AND BEING COMBATIVE TO NURSE AND TRIED TO HIT NURSE. ASSISTED PT BACK TO BED. AND CHANGED LINENS AND GOWN. PT WAS CURING AT STAFF. ADMINISTERED PHENERGAN IVP FOR NAUSEA AND ATIVAN IVP FOR AGITATION. NO SIGNS OF DISTRESS. WILL CONTINUE TO MONITOR.
[2018-01-16] MEDS: LORazepam 2 MG/ML VIAL IVP PRN (15:09)
[2018-01-16 16:00] VITALS: BP 140/94
--- NOTE | 2018-01-16 18:00 | NUR ---
REPORTED TO DR. PORTER. PT'S HR UP TO 160 ON MONITOR. CHECKED VS: BP 142/86, O2 SAT 95%, HR 155, TEMP 98.6. PT SLEEPING IN BED RIGHT NOW.
--- NOTE | 2018-01-16 19:24 | NUR ---
ENDORSED PT TO WAFER POLISHING WORKER NURSE DIONNE AT BEDSIDE FOR CONTINUITY OF CARE. PT IN STABLE CONDITION.
--- NOTE | 2018-01-16 19:50 | NUR ---
PT TRYING TO GET OOB, SITTING ON EDGE OF BED, PT YELLING I WANT TO EAT, SUPERVISOR ACOUSTICAL TILE CARPENTERS TRIED TO ASSIST BUT PT UNCOOPERATIVE TRYING TO HIT AND CUSSING TOWARD SUPERVISOR ACOUSTICAL TILE CARPENTERS AND ME, PROVIDED PT WITH PUDDING, STANDBY ASSIST, FAIRLY TOLERATING FULL LIQUID DIET BUT OCCASIONALLY SPITS FOOD, ABLE TO FINISHED PUDDING, SHAKE AND ICE CREAM, PT ASSISTED TO LAY ON BED, ATTEMPT TO DO VITAL SIGNS BUT STATED "GET THE F..K OUT OF HERE", SIDE RAILS UP AND BED ALARM ON.
--- NOTE | 2018-01-16 21:35 | NUR ---
PATIENT YELLING "I WANT SANDWICH", PT NOTICED DROOLING AND OCCASIONALLY SPITS OUT SALIVA, NO VOMITING NOTED, REFUSED DUE PO MEDICATION, MEDICATED WITH HALDOL IVP, SR ON TELE, MONITORED CLOSELY.
--- NOTE | 2018-01-16 23:30 | NUR ---
PT SLEEPING, PT EASILY AROUSABLE, GETS EASILY AGITATED, VITAL SIGNS TAKEN, BP SLIGHTLY ELEVATED, ASYMPTOMATIC, NO SIGNS OF PAIN OR SOB NOTED, PT WENT BACK TO SLEEP, SIDE RAILS UP AND BED ALARM ON.
[2018-01-17] VITALS: BP 159/85
[2018-01-17] MEDS: POTASSIUM CHL 20 MEQ/NACL 0.9% 1,000 ML IV SCH ×3 (00:15→16:55)
[2018-01-17] MEDS: LORazepam 2 MG/ML VIAL IVP PRN ×3 (01:31→19:00)
--- NOTE | 2018-01-17 01:47 | NUR ---
BED ALARM TRIGGERED, PT AGITATED TRYING TO GET OOB, SEEN STANDING ON SIDE YELLING "I NEED FOOD", PUT PT BACK TO BED, PT KICKING AND TRYING TO BITE SEWING MACHINE OPERATOR ZIPPER AND RN, COMBATIVE AND NONCOMPLIANT, TOLERATED PUDDING, WARM BLANKET PROVIDED, MONITORED CLOSELY.
[2018-01-17 04:00] VITALS: BP 146/84
--- NOTE | 2018-01-17 04:00 | NUR ---
PT SLEEPING, MOANS TO TOUCH, VITAL SIGNS STABLE, NO DISTRESS NOTED, SIDE RAILS UP AND BED ALARM ON, MONITORED CLOSELY.
[2018-01-17] MEDS: PROMETHAZINE 25 MG/ML VIAL IVP PRN (04:50)
--- NOTE | 2018-01-17 04:50 | NUR ---
PT VOMITED THICK LIGHT BROWN VOMITUS APPROX 50ML, MEDICATED PRN WITH PHENERGAN IVP, MONITORED CLOSELY.
--- NOTE | 2018-01-17 07:19 | NUR ---
PT SLEEPING, NO SIGNS OF DISTRESS, REPORT GIVEN TO ANDRADE MCCANN FOR CONTINUITY OF CARE.
--- NOTE | 2018-01-17 07:20 | NUR ---
RECEIVED REPORT FROM PM NURSE AT BEDSIDE FOR CONTINUITY OF CARE. PT SLEEPING AT THIS TIME. WILL CONTINUE TO MONITOR.
[2018-01-17 08:00] VITALS: BP 145/93
--- NOTE | 2018-01-17 08:24 | NUR ---
PT REFUSED TO BE ON TELE MONITOR. PT EXPLAINED RISK OF NOT BEING ON TELE MONITOR. MD NOTIFIED. WILL CONTINUE TO MONITOR PT.
[2018-01-17] MEDS: HALOPERIDOL IM 5 MG/ML VIAL IVP SCH (08:51)
--- NOTE | 2018-01-17 08:51 | NUR ---
CHECKED ON PT. PT COMBATIVE AND AGITATED WITH NURSE AND SECURITY CONTROL ASSESSOR. CURSING AT SECURITY CONTROL ASSESSOR STAFF.PT REFUSED TELE MONITOR. PT EXPLAINED ABOUT RISK OF NOT BEING ON TELE MONITOR. PT HAD BM ON FLOOR. PT ASKING FOR FOOD. OFFERED MILK SHAKE TO PT. PT DID NOT TOLERATED IT WELL. PT HAD SMALL VOMIT AFTER MILK SHAKE INTAKE. PT BED CLEANED UP. PUT PT BACK ON BED. ADMINISTERED HALDOL TO PT. PT TOLERATED WELL. WILL CONTINUE TO MONITOR PT.
[2018-01-17] MEDS: LACTOBACILLUS RHAMNOSUS GG 1 EACH CAP PO SCH (09:00)
[2018-01-17] MEDS: DOCUSATE SODIUM 100 MG GELCAP PO SCH ×2 (09:00→20:24)
[2018-01-17] MEDS: ONDANSETRON 4 MG/2 ML VIAL IVP PRN ×2 (09:14→14:07)
--- NOTE | 2018-01-17 11:17 | NUR ---
Social Workers Notes: I call [facility] and I spoke to Nataliia Bray to request and scheduled Patient's evaluation. Per Nataliia she will be coming to see patient at about 17:00.
--- NOTE | 2018-01-17 12:00 | NUR ---
PT REFUSED VS WAS YELLING AND CURSING AT STAFF. " STATED LEAVE ME ALONE YOU F*IN B*. DON'T TOUCH ME, GET AWAY FROM ME, I WANNA GET OUT." PT WAS ALSO GETTING COMBATIVE AND TRIED TO PUNCH RN. PT YELLING "GIMME MY FOOD, STOP STANDING THERE LIKE ZOMBIE AND BRING ME MY FOOD." GAVE PT PUDDING AND ICE CREAM. PT DID NOT TOLERATE FOOD WELL AND SPIT OUT FOOD AND VOMITED OVER BED SIDE RAIL. CLEANED PT AND CHANGED GOWN. BUT PT GETTING AGGRESSIVE AND TRYING TO HIT STAFF. PT LAID BACK DOWN TO BED. COVERED FACE WITH BLANKET AND WENT TO SLEEP. WILL CONTINUE TO MONITOR.
--- NOTE | 2018-01-17 14:36 | NUR ---
Wound assessment BID deleted/inactive , wrong resident.
--- NOTE | 2018-01-17 15:15 | NUR ---
PT STANDING BY EDGE OF BED, TRYING TO PUT PANTS ON, UNSTEADY GAIT. NURSES AT BEDSIDE PREVENTING FROM FALLING. PT TOLD OF BEING UNSTEADY, PT CURSING AT NURSES, VERBALIZING TO LEAVE HOSPITAL ON OWN. NURSE TOLD PT ABOUT HIS CONDITION, RISK OF FALL , UNABLE TO LEAVE HOSPITAL ON OWN. PT MADE AWARE OF UNSTEADY GAIT AGAIN, PT AGITATED, UNSTABLE GAIT. PT DROPPED ON BED ON LEFT SIDE BY HIMSELF DUE TO UNSTEADY GAIT. PT GOT UP ON OWN,SITTING ON EDGE OF BED, TRYING GETTING OUT OF BED. NURSES ASKED PT TO STAY ON BED. MADE AWARE OF FALL RISK. PT COMBATIVE, TRIED HITTING NURSE, BITTING NURSE WHEN ASSISTING TO MAINTAIN PT STABLE POSITION. PT STILL VERBALIZING OF LEAVING HOSPITAL. PT MADE AWARE OF UNSTABLE PHYSICAL CONDITION. CHARGE NURSE MADE AWARE OF THE SITUATION. DISCUSSED ABOUT POSSIBILITY OF ONE TO ONE SITTER , DISCUSSED ABOUT ELIGIBLE FOR RESTRAINING BECAUSE PT DANGER TO SELF. WILL CONTINUE TO MONITOR PT.
--- NOTE | 2018-01-17 15:41 | NUR ---
CHART REVIEWED FAXED PROGRESS NOTES AND MEDICATION LIST TO [facility] [phone] PHONE [phone] X [phone] ROCKY
[2018-01-17 16:00] VITALS: BP 154/68
--- NOTE | 2018-01-17 16:00 | NUR ---
PT YELLING AND CURSING AT NURSE, STAFF, DOCTOR AND SECURITY. WAS TRYING TO GET OUT OF BED AND STATING "I'M GETTING OUT OF HERE I WANT MY STUFF ARE YOU DUMB?" PT GOT UP AND WENT DOWN TO FLOOR ON KNEES. LAID OVER TO RIGHT SIDE AND REFUSING TO GET UP. PT STATING HE WAS IN PAIN AND YELLING AT DOCTOR TO GET X-RAY. SECURITY MOVED PT BACK TO BED. PT STILL YELLING AND CURSING AT STAFF. "YOU B*, F* YOU." RECEIVED ORDER OK TO GIVE FOOD.
[2018-01-17] MEDS ORDERED: MORPHINE SULFATE 4 MG/ML SYR IVP SCH (16:32)
[2018-01-17] MEDS ORDERED: ACETAMINOPHEN 650 MG SUPP RC PRN (17:10)
[2018-01-17] MEDS ORDERED: BISACODYL 5 MG TABEC PO PRN (17:10)
--- NOTE | 2018-01-17 17:28 | NUR ---
MARIELLA-ADMISSIONS NURSE FROM [facility] CAME AND SPOKE WITH DR. DEMPSEY, NEW ORDERS FOR GENERAL INPATIENT CARE GIVEN.
--- NOTE | 2018-01-17 18:30 | NUR ---
REPORTED FROM [facility] THAT PT REFUSED XRAY. YELLED AT [facility] AND SAID "GET AWAY FROM ME". YELLING OUT OF ROOM AND AND STAFF. LYING IN BED WILL CONTINUE TO MONITOR.
[2018-01-17] MEDS: HALOPERIDOL IM 5 MG/ML VIAL IVP PRN (19:00)
--- NOTE | 2018-01-17 19:00 | NUR ---
PT WAS AGITATED AND CURSING AT STAFF. ASKIN FOR BLANKETS. GAVE BLANKET. PT TRIED TO GET OUT OF BED. ADMINISTERED ATIVAN AND HALDOL IVP. PT TOLERATED WELL. LYING IN BED NOW. COVERED SELF WITH BLANKET AND YELLED "GET OUT OF HERE YOU MOTHER F*" WENT BACK TO SLEEP. WILL CONTINUE TO MONITOR.
--- NOTE | 2018-01-17 19:20 | NUR ---
RECEIVED FROM AM RN IN BED AWAKE AT THIS TIME. PT. ABLE TO VERBALIZE SIMPLE NEEDS. ON HOSPICE CARE STARTING TODAY. NEEDS WILL BE ANTICIPATED AND WILL BE MET. PT. HAS EPISODES OF CONFUSION AT TIMES. PT. SITUATED NEAR NURSING UNIT FOR EASIER PHYSICAL VISIBILITY. PT. PER AM RN REFUSED ALL IMAGING ORDERS FOR HIM BY MD TODAY.
--- NOTE | 2018-01-17 19:25 | NUR ---
PT ENDORSED TO BEDSIDE TO PM NURSE FOR CONTINUITY OF CARE. PT STABLE AT THIS TIME.
--- NOTE | 2018-01-17 20:10 | NUR ---
WILL MEDICATE WITH PAIN RELIEVER RT PT. WANTING MEDICATION FOR PAIN. PT. ABLE TO VERBALIZE SIMPLE NEEDS. KEPT COMFORTABLE. BED ALARM ON.
[2018-01-17 20:15] VITALS: BP 148/62
[2018-01-17] MEDS: MORPHINE SULFATE 4 MG/ML SYR IVP PRN (20:23)
--- NOTE | 2018-01-17 22:28 | NUR ---
PT. SLEEPING AT THIS TIME. KEPT COMFORTABLE BY CNAS. NEEDS WILL BE ANTICIPATED . NEW IVF SITE TO LEFT FOREARM #22 INTACT AND SECURED WITH KERLIX .
--- NOTE | 2018-01-17 22:46 | NUR ---
PT. AWAKE AND SHOUTING ON TOP OF HIS VOICE. CURSING. RESIDENT MD IN HERE AND SEEN PT. WITH NEW ORDER TO GIVE HALDOL IM 5MG. NOW.
[2018-01-17] MEDS ORDERED: HALOPERIDOL IM 5 MG/ML VIAL IM SCH (23:00)
[2018-01-17 23:31] VITALS: BP 140/58
--- NOTE | 2018-01-17 23:34 | NUR ---
PT. AT THIS TIME STILL TALKING BUT CALMER. ADVICE TO SLEEP. PT. KEEPS CURSING. NEEDS WILL BE ANTICIPATED AND WILL BE MET. KEPT DRY AND COMFORTABLE.
[2018-01-18] MEDS: POTASSIUM CHL 20 MEQ/NACL 0.9% 1,000 ML IV SCH ×2 (00:19→21:02)
[2018-01-18] MEDS: MORPHINE SULFATE 4 MG/ML SYR IVP PRN ×3 (00:48→19:28)
[2018-01-18] MEDS: LORazepam 2 MG/ML VIAL IVP PRN ×2 (00:49→13:57)
--- NOTE | 2018-01-18 01:01 | NUR ---
BEEN SLEEPING FOR AN HOUR AND WOKE UP AGAIN SHOUTING FOR SOMEONE. STATED THAT HE IS IN PAIN TOO. MEDICATED WITH PAIN RELIEVER ORDERED. NEEDS ANTICIPATED AND WILL BE MET.
--- NOTE | 2018-01-18 02:46 | NUR ---
SLEEPING AT THIS TIME. MONITORED BY DOPE HOUSE OPERATOR HELPER AND ME. ABLE TO VERBALIZE SIMPLE NEEDS. NEEDS ANTICIPATED AND WILL BE MET.
--- NOTE | 2018-01-18 03:30 | NUR ---
PT. SLEEPING . WAKES UP EASILY WHEN TOUCHED OR MOVED. NEEDS ANTICIPATED. KEPT COMFORTABLE .
--- NOTE | 2018-01-18 07:28 | NUR ---
AM PERSONAL HYGIENE CARE RENDERED BY CNAS. NO RESTLESSNESS NOTED AT THIS TIME. WENT BACK TO SLEEP POST HYGIENE CARE.. CALL LIGHT WITH IN REACH AND ENDORSED TO THE NEXT RN FOR CONTINUITY OF CARE.
--- NOTE | 2018-01-18 07:50 | NUR ---
PATIENT IS DROWSY, AROUSABLE UPON SHAKING. RESPIRATION EVEN, UNLABOR ON ROOM AIR. SKIN DRY AND WARM. IV PATENT AND INTACT. NO DISTRESS NOTED AT THIS TIME. BED AT LOW POSITION, SIDE RAILS UP. BED ALARM ACTIVE.
[2018-01-18 08:00] VITALS: BP 150/91
--- NOTE | 2018-01-18 08:15 | NUR ---
PATIENT TEMP WAS 100.5, ICE PACKS WERE PLACED ON CHEST AND AXILLARY, WILL CONTINUE TO MONITOR.
[2018-01-18] MEDS: DOCUSATE SODIUM 100 MG GELCAP PO SCH ×2 (09:00→20:17)
[2018-01-18] MEDS: LACTOBACILLUS RHAMNOSUS GG 1 EACH CAP PO SCH (09:00)
--- NOTE | 2018-01-18 09:07 | NUR ---
PATIENT IS DROWSY, DIFFICULT TO AROUSE. PO MEDS ARE HELD AT THIS TIME
--- NOTE | 2018-01-18 11:48 | NUR ---
PATIENT IS RESTING COMFORTABLY. RESPIRATION EVEN, UNLABOR ON ROOM AIR. IV PATENT AND INTACT. NO DISTRESS NOTED AT THIS TIME. BED ALARM IS ACTIVE. CALL LIGHT WITHIN REACH
--- NOTE | 2018-01-18 12:39 | NUR ---
PATIENT AWAKE, MOANING "PAIN, PAIN". PAIN MED WAS GIVEN PER ORDER. MD WAS AT BEDSIDE.
--- NOTE | 2018-01-18 13:30 | NUR ---
HUNTER SILVERMAN FROM [facility] CAME IN , AND SPEAK WITH THE PATIENT ,BUT PATIENT UNABLE TO FOLLOW CONVERSATION SHE STATED SHE HAS MEETING WITH FORGING DIE FINISHER AND SHE WILL ASSIGN SW TO COME AND SEE PATIENT.
[2018-01-18] MEDS: HALOPERIDOL IM 5 MG/ML VIAL IVP PRN (13:56)
--- NOTE | 2018-01-18 14:00 | NUR ---
PATIENT WAS AGITATED, SCREAMING, TRIED TO GET OUT OF BED. MEDS WERE GIVEN PER ORDER. WILL CONTINUE TO MONITOR
[2018-01-18 16:00] VITALS: BP 144/85
--- NOTE | 2018-01-18 16:17 | NUR ---
PATIENT IS RESTING COMFORTABLY. RESPIRATION EVEN, UNLABOR ON ROOM AIR. ICE PACK WAS PLACED ON FOREHEAD FOR FEVER. WILL CONTINUE TO MONITOR
--- NOTE | 2018-01-18 16:30 | NUR ---
DR. ESCOBAR WAS MADE AWARE OF PATIENT'S ONGOING FEVER, AWAITING FOR NEW ORDER.
[2018-01-18] MEDS ORDERED: KETOROLAC 15 MG/ML VIAL IM PRN (16:40)
--- NOTE | 2018-01-18 16:51 | NUR ---
I GOT A CALL FROM SEVERIANO CHILD WELFARE SPECIALIST SHE STATED SHE IS OFF THE CLOCK AT THIS TIME ,SHE WILL COME TOMORROW TO EVALUATE PATIENT.
--- NOTE | 2018-01-18 18:43 | NUR ---
PATIENT RESTING COMFORTABLY. RESPIRATION EVEN, UNLABOR ON ROOM AIR. TEMP DROPPED TO 99.3. WILL CONTINUE WITH COOLING MEASUREMENT. NO DISTRESS NOTED AT THIS TIME
--- NOTE | 2018-01-18 19:20 | NUR ---
PATIENT REPORT RECEIVED FROM MORNING NURSE AT BEDSIDE. PATIENT IS CURRENTLY SCREAMING. ASKING FOR PAIN MEDS. WILL MEDICATE ORDERED. IV SITE NOTED ON LEFT ARM, IVF INFUSING WELL. BED IN LOWEST POSITION, SIDE RAILS UP AND SAFETY PRECAUTIONS IN PLACE. WILL CONTINUE TO MONITOR
[2018-01-18] MEDS: KETOROLAC 15 MG/ML VIAL IVP PRN (20:57)
--- NOTE | 2018-01-18 22:45 | NUR ---
CHECKED ON PATIENT. PATIENT IS ASLEEP. NO SIGNS AND SYMPTOMS OF DISTRESS NOTED. BREATHING EVEN AND UNLABORED. WILL CONTINUE TO MONITOR.
[2018-01-19] VITALS: BP 136/84
--- NOTE | 2018-01-19 | NUR ---
CHECKED ON PATIENT. PATIENT IS ASLEEP. NO SIGNS AND SYMPTOMS OF DISTRESS NOTED. BREATHING EVEN AND UNLABORED. WILL CONTINUE TO MONITOR.
--- NOTE | 2018-01-19 01:56 | NUR ---
PATIENT YELLING. CHECKED ON PATIENT, NOTICED THAT HE PULLED IV SITE OUT. IV CANNULA INTACT. PATIENT REFUSED NEW IV INSERTION. WILL TRY AGAIN LATER. PATIENT ASKING WHERE HE IS. REORIENTED PATIENT TO HOSPITAL. PATIENT VOIDED IN BED. CHUCKS CHANGED AND PERICARE DONE. REMINDED PATIENT THAT HE HAS A URINAL. WILL CONTINUE TO MONITOR.
[2018-01-19] MEDS: MORPHINE SULFATE 4 MG/ML SYR IVP PRN (04:16)
--- NOTE | 2018-01-19 05:44 | NUR ---
PT'S IV SITE INFILTRATED. PATIENT YELLING, "GET OUT! GET OUT!" REFUSED IV SITE INSERTION. CHARGE NURSE PAULINO PRESENT. WILL TRY AGAIN LATER
[2018-01-19] MEDS ORDERED: LORazepam 2 MG/ML VIAL IM/IVP ONE (05:45)
[2018-01-19] MEDS: LORazepam 2 MG/ML VIAL IM/IVP PRN ×3 (05:48→22:25)
--- NOTE | 2018-01-19 06:46 | NUR ---
NEW IV SITE INSERTED BY CHARGE NURSE PAULINO. LEFT FOREARM, 22 GAUGE. PATIENT TOLERATED WELL. WILL CONTINUE TO MONITOR.
--- NOTE | 2018-01-19 07:09 | NUR ---
PATIENT REPORT GIVEN TO MORNING NURSE AT BEDSIDE. PATIENT IS IN STABLE CONDITION
--- NOTE | 2018-01-19 07:30 | NUR ---
PATIENT AWAKE, SCREAMING "I WANT FOOD". REFUSED TO HAVE BP TAKEN. RESPIRATION EVEN, UNLABOR ON ROOM AIR. SKIN DRY AND WARM. IV PATENT AND INTACT. NO DISTRESS NOTED AT THIS TIME. BED AT LOW POSITION, SIDE RAILS UP. CALL LIGHT WITHIN REACH. BED ALARM ACTIVE.
--- NOTE | 2018-01-19 08:02 | NUR ---
PATIENT HAD EMESIS X 2 AFTER EATING, AND HAD SIGNS OF CHOKING WITH FOOD. PATIENT WAS SUCTIONED ORALLY. PATIENT IS STABLE AT THIS TIME. PATIENT NOT ABLE TO TOLERATE REGULAR FOOD. WILL NOTIFY .
--- NOTE | 2018-01-19 08:33 | NUR ---
PATIENT REMOVED THE IV, AND BANGING THE IV POLE AGAINST THE BED. IV CATHETER INTACT, NO ACTIVE BLEEDING SEEN. IV POLE WAS REMOVED AWAY FROM THE BED. MED WAS GIVEN PER ORDER.
[2018-01-19] MEDS: HALOPERIDOL IM 5 MG/ML VIAL IVP PRN (08:37)
[2018-01-19] MEDS: LACTOBACILLUS RHAMNOSUS GG 1 EACH CAP PO SCH (09:00)
[2018-01-19] MEDS: DOCUSATE SODIUM 100 MG GELCAP PO SCH ×2 (09:00→21:00)
--- NOTE | 2018-01-19 09:50 | NUR ---
PATIENT WAS RESTING COMFORTABLY. RESPIRATION EVEN, UNLABOR ON ROOM AIR. NO DISTRESS NOTED AT THIS TIME. CALL LIGHT WITHIN REACH
--- NOTE | 2018-01-19 11:45 | NUR ---
PATIENT WAS AGITATED, TRIED TO STEP OFF THE BED. PATIENT HIT PULL SOCKET ASSEMBLER ON THE LEFT ARM PER PULL SOCKET ASSEMBLER WHEN PULL SOCKET ASSEMBLER TRIED TO HELP GETTING BACK TO THE BED. EXPLAINED TO THE PATIENT REPEATEDLY IT IS UNSAFE FOR HIM TO GET OUT OF BED DUE TO FRACTURE ON THE LEFT FEMUR. PATIENT STARTED SCREAMING AT STAFF "ARE YOU RETARDED OR LAME, I WILL FING THERESA YOU, YOU BI*CH". PATIENT CONTINUED TO REFUSE TO BE HELPED BACK TO BED AND KEPT ON VERBALLY ABUSING STAFF. SECURITY WAS CALLED. WRIST RESTRAINT WAS APPLIED. BED ALARM IS ACTIVE. WILL NOTIFY .
--- NOTE | 2018-01-19 12:00 | NUR ---
MULTIPLE ATTEMPTS FOR IV INSERTION. UNABLE TO START ONE. WILL CONTINUE TO OFFER ORAL FLUID AT THIS TIME.
--- NOTE | 2018-01-19 12:45 | NUR ---
DR. DEMPSEY WAS MADE AWARE OF PATIENT'S AGITATION BEHAVIOR. RESTRAINT ORDER WAS OBTAINED.
--- NOTE | 2018-01-19 13:15 | NUR ---
01/19/18 RD FOLLOW UP COMPLETED REFER TO NUTRITION PROGRESS NOTE UNDER CARE ACTIVITY FOR ESTIMATED NEEDS. RD RECOMMENDATIONS: 1. CONTINUE DIET PER PT PREFERENCE/TOLERANCE MEDICALLY APPROPRIATE 2. CONTINUE HEALTH SHAKE TID. 3. PLEASE ADD BOOST PLUS QID *DISCUSSED WITH RESIDENT AND RN. RD WILL F/U 2-3 DAYS; HIGH RISK [facility] [address], [facility]
--- NOTE | 2018-01-19 13:20 | NUR ---
PATIENT WAS AGITATED, SCREAMING, CURSING AT STAFF, TRIED TO GET OUT OF BED, AND SPAT ON HOSPICE NURSE. ATIVAN WAS GIVEN PER ORDER.
[2018-01-19 16:00] VITALS: BP 147/88
--- NOTE | 2018-01-19 16:12 | NUR ---
PATIENT IS RESTING COMFORTABLY. RESPIRATION EVEN, UNLABOR ON ROOM AIR. VS IS STABLE. NO DISTRESS NOTED AT THIS TIME. WRIST RESTRAINS WERE REMOVED. WILL CONTINUE TO MONITOR.
--- NOTE | 2018-01-19 17:30 | NUR ---
PATIENT BECAME AGITATED WHILE BEING CLEANED UP BY AUTOMATIC PATTERN EDGER, SCREAMING OUT " I WANT FOOD". PATIENT REFUSED ASSESSMENT PER HOSPICE NURSE, AND TRIED TO GET OUT OF BED, VERBALLY ABUSED AND SWUNG AT STAFF. RESTRAINT WAS APPLIED. HALDO WAS GIVEN PER ORDER. WILL CONTINUE TO MONITOR.
[2018-01-19] MEDS: HALOPERIDOL IM 5 MG/ML VIAL IM PRN ×2 (17:34→23:29)
[2018-01-19] MEDS: POTASSIUM CHL 20 MEQ/NACL 0.9% 1,000 ML IV SCH (19:00)
--- NOTE | 2018-01-19 19:21 | NUR ---
ENDORSEMENT GIVEN TO THE WELT POCKET MACHINE OPERATOR NURSE. PATIENT IS STABLE AT THIS TIME
--- NOTE | 2018-01-19 19:22 | NUR ---
RECEIVED PT FROM PERRI RN PT SLEEPING BREATHIN GWELL NOT DISTRESS NOTED REPOSITIONED ON BILATERAL SOFT WRIST RESTRAINT INITIAL ASSESSMENT DONE
[2018-01-19 20:00] VITALS: BP 121/66
--- NOTE | 2018-01-19 22:32 | NUR ---
PT VERY ANXIOUS AND AGITATES ATIVAN GIVEN ORDER
--- NOTE | 2018-01-19 23:30 | NUR ---
PT VERY AGITATED HALDOL GIVEN ORDER AND LINEN CHANGED PT INCONTINENT
--- NOTE | 2018-01-19 23:33 | NUR ---
RELEASE RESTRAINT PT AFTER SPONGE BATH GIVEN AND LINEN CHANGED AND GETTING SLEEP AND RESTRAINTS WERE RELEASE
--- NOTE | 2018-01-20 01:30 | NUR ---
PT SLEEPING NOT DISTRESS NOTED, REPOSITIONED
--- NOTE | 2018-01-20 04:30 | NUR ---
SPONGE BATH GIVEN LINEN CHANGED PT REMAIN CALM NOT DISTRESS NOTED
--- NOTE | 2018-01-20 05:00 | NUR ---
PT EATING PUDING AND APPLE JUICE AND REPOSITIONEDAND STARTED TO SCREAM THAT HE WANT MORE FOOD
[2018-01-20] MEDS: HALOPERIDOL IM 5 MG/ML VIAL IM PRN ×2 (05:21→17:04)
--- NOTE | 2018-01-20 05:55 | NUR ---
PT OFF RESTRAINT GETTING SLEEP NOT DISTRESS NOTED
--- NOTE | 2018-01-20 07:20 | NUR ---
RECEIVED BEDSIDE REPORT FROM VERTICAL LATHE OPERATOR NURSE. PATIENT IS SLEEPING. NO SIGNS OF DISTRESS AT THIS TIME ON ROOM AIR. PATIENT IS ON BEDREST. SKIN IS INTACT. PATIENT REMOVED IV LAST NIGHT WHEN RESTRAINTS WERE REMOVED. NO IV ACCESS AND NO RESTRAINTS AT THIS TIME. PATIENT REFUSED IV. PATIENT IS A MED SURGE PATIENT. DNR. BED IN LOW POSITION. CALL LIGHT WITHIN REACH. WILL CONTINUE TO MONITOR THE PATIENT.
[2018-01-20 08:00] VITALS: BP 123/77
[2018-01-20] MEDS: LACTOBACILLUS RHAMNOSUS GG 1 EACH CAP PO SCH (09:00)
[2018-01-20] MEDS: DOCUSATE SODIUM 100 MG GELCAP PO SCH ×2 (09:00→20:56)
--- NOTE | 2018-01-20 09:41 | NUR ---
PATIENT CANNOT TOLERATE MEDS. MEDS NOT GIVEN. PATIENT REFUSED IV ACCESS.
[2018-01-20] MEDS: LORazepam 2 MG/ML VIAL IM/IVP PRN ×2 (10:26→17:05)
--- NOTE | 2018-01-20 10:36 | NUR ---
RENÉ, CHARGE NURSE, AND KIM CLARK HELPED PLACE AN IV. IV ON L FA 22G SALINE LOCK. IV IS CLEAN, DRY AND INTACT. IV IS WRAPPED TO PREVENT THE PATIENT FROM PULLING IT OUT. ADMINISTERED PRN ATIVAN. PATIENT IS AGITATED AND SCREAMING.
[2018-01-20] MEDS: MORPHINE SULFATE 4 MG/ML SYR IVP PRN (11:28)
[2018-01-20] MEDS: POTASSIUM CHL 20 MEQ/NACL 0.9% 1,000 ML IV SCH (11:31)
--- NOTE | 2018-01-20 11:34 | NUR ---
ADMINISTERED PRN MEDS AND IV FLUIDS. PATIENT IS TOLERATING WELL. WILL CONTINUE TO MONITOR THE PATIENT.
--- NOTE | 2018-01-20 13:00 | NUR ---
PATIENT DRAGGED THE IV POLE AND THROW IT TO THE WINDOW SIDE STATED TO BREAK THE WINDOW. THE IV POLE FELL AT THE EDGE OF THE BED ,NO INJURY TO THE PATIENT. VERBALLY ABUSIVE TO THE STAFF , USED CURSE WORDS . EXPLAIN TO THE PATIENT THAT NURSE'S ARE HELPING HIM NOT HURTING HIM BUT PATIENT , UNABLE TO HAVE CONVERSATION WITH HIM AT THIS TIME .
--- NOTE | 2018-01-20 13:38 | NUR ---
PATIENT WAS PULLING AT IV, IVF REMOVED UNTIL PATIENT IS ASLEEP. HE IS ASKING FOR A COOKIE BUT CANNOT TOLERATED IT. EDUCATED PATIENT BUT HE STILL WANTS IT. HIGH RISK ASPIRATION SO COOKIE IS NOT GIVEN.
--- NOTE | 2018-01-20 14:41 | NUR ---
REHEATED THE PATIENTS FOOD AND FED HIM SOME SOUP. PATIENT TOLERATED A LITTLE BUT HE STARTED TO COUGH AND HAS GARGLING SOUNDS. TOLD PATIENT I WILL GIVE HIM A BREAK D/T NOT TOLERATING WELL. HIGH RISK ASPIRATION, WILL TRY AGAIN LATER. WILL CONTINUE TO MONITOR THE PATIENT.
[2018-01-20 16:00] VITALS: BP 145/91
[2018-01-20] MEDS ORDERED: MORPHINE SULFATE 4 MG/ML SYR IVP PRN (16:00)
--- NOTE | 2018-01-20 16:04 | NUR ---
I WAS ABOUT TO ADMINISTER PRN MORPHINE AND PATIENT PUSHED MY ARM AND TOLD ME I AM NOT GIVING HIM MORPHINE UNLESS I GIVE HIM IVEY DOMENIC. EXPLAINED TO THE PATIENT ABOUT CHOKING HAZARDS AND HOW HE CANT TOLERATE LIQUID. HE STATES HE DOESNT CARE AND USED PROFANITY. WILL CONTINUE TO MONITOR THE PATIENT.
--- NOTE | 2018-01-20 16:20 | NUR ---
PATIENT REMOVED THE BANDAGE OFF THE IV AND THEN REMOVED THE IV. HE STATES WE "STABBED" HIM WITH THE IV SO HE TOOK IT OFF.
[2018-01-20] MEDS: MORPHINE SULFATE 4 MG/ML SYR IM/IVP PRN (17:05)
--- NOTE | 2018-01-20 17:14 | NUR ---
ADMINISTERED PRN MEDS. PATIENT IS AGITATED HE IS CALLING EVERYONE "BITCH" AND TELLING US "FUCK YOU". HE IS COMPLAINING OF PAIN 10/10 ON HIS L LEG. ADMINISTERED PAIN MED. PATIENT TOLERATING WELL. WILL CONTINUE TO MONITOR THE PATIENT. ALL MEDS ARE IM BECAUSE PATIENT REMOVED IV EARLIER. HALDOL, MORPHINE, AND ATIVAN TOGETHER PER HOSPICE NURSE. HALDOL AND ATIVAN ALONE DOES NOT HELP WITH PATIENT BEING AGITATED. Addendum: 01/20/18 at 1725 by Leatha Little RN DOCTOR SEPULVEDA GAVE THE OK TO GIVE ALL 3 MEDS IM NEEDED.
[2018-01-20] MEDS: NACL 0.9% 1,000 ML IV SCH (17:35)
--- NOTE | 2018-01-20 18:20 | NUR ---
PATIENT IS SLEEPING. NO SIGNS OF RESP DISTRESS ON ROOM AIR. WILL CONTINUE TO MONITOR THE PATIENT. BED IN LOW POSITION. BED ALARM IS ON.
--- NOTE | 2018-01-20 19:00 | NUR ---
GAVE BEDSIDE REPORT TO CHECKROOM ATTENDANT NURSE. PATIENT IS IN STABLE CONDITION.
--- NOTE | 2018-01-20 20:54 | NUR ---
RECEIVED FROM ANOTHER RN FOR CONTINUITY OF CARE. PT. SLEEPING. UNABLE TO GIVE COLACE P.O. NEEDS WILL BE ANTICIPATED AND WILL BE MET. TOTAL CARE. BED ALARM ON . PT. WITH OUT IVF SITE RT REFUSED PER PREVIOUS RN.
[2018-01-20 23:55] VITALS: BP 132/82
--- NOTE | 2018-01-20 23:59 | NUR ---
SLEEPING AT THIS TIME. BED ALARM ON. CALL LIGHT WITH IN REACH.
[2018-01-21] MEDS: MORPHINE SULFATE 4 MG/ML SYR IM/IVP PRN ×3 (02:36→11:35)
[2018-01-21 02:39] VITALS: BP 140/92
--- NOTE | 2018-01-21 02:42 | NUR ---
PT. TURNED AND WOKE UP STATING HIS LEG REALLY HURTS. REQUESTED FOR PAIN RELIEVER. MEDICATED WITH MORPHINE 2 MG. ORDERED PER IM TO VASTUS LATERALIS LEFT LEG. PROVIDED WITH WARM BLANKET REQUESTED. KEPT COMFORTABLE. NEEDS ANTICIPATED AND WILL BE MET. TOTAL CARE AT THIS TIME.
--- NOTE | 2018-01-21 07:00 | NUR ---
ENDORSED TO THE AM RN WITH OUT ANY UNTOWARD INCIDENT MY SHIFT. KEPT COMFORTABLE , NO SOB. NO RESTLESSNESS. NEEDS ANTICIPATED AND MET. TOTAL CARE.
--- NOTE | 2018-01-21 07:11 | NUR ---
ASSUMED CONTINUITY OF CARE. NO SIGNS AND SYMPTOMS OF ACUTE DISTRESS NOTED. INITIAL ASSESSMENT DONE. RE-ORIENTED TO EVNTS AND SURROUNDINGS. PT.NON-COMPLIANT TO SAFETY, AGGRESSIVE, AND VERBALLY ABUSIVE. REFUSED IV INSERTION AND REFUSED TO WEAR HOSPITAL GOWN. KEEP COMFORTABLE ON BED. FALL PRECAUTION APPLIED. CALL LIGHT WITHIN REACH.
[2018-01-21 08:00] VITALS: BP 138/84
--- NOTE | 2018-01-21 08:00 | NUR ---
Patient's Plan of Care was discussed and reviewed with AREA SALES MANAGER: HERNANDEZ WARD
[2018-01-21] MEDS ORDERED: COMMUNICATION ORDER MC SCH (08:25)
[2018-01-21] MEDS: LACTOBACILLUS RHAMNOSUS GG 1 EACH CAP PO SCH (09:00)
[2018-01-21] MEDS ORDERED: GEODON IM SCH (09:00)
[2018-01-21] MEDS: GEODON IM SCH ×2 (10:35→20:50)
[2018-01-21 11:30] VITALS: BP 146/90
--- NOTE | 2018-01-21 12:20 | NUR ---
AGITATED, COMBATIVE, VERBALLY ABUSIVE, AND TRIED TO GET OUT OF BED. NON-COMPLIANT TO SAFETY. KEEP FREE FROM INJURY.
[2018-01-21] MEDS: LORazepam 2 MG/ML VIAL IM/IVP PRN ×2 (12:29→21:58)
[2018-01-21] MEDS: NACL 0.9% 1,000 ML IV SCH (13:35)
--- NOTE | 2018-01-21 14:00 | NUR ---
SLEEPING IN COMFORTABLE POSITION. NO DIFFICULTY BREATHING NOTICED. CONTINUE MONITORING. CALL LIGHT WITHIN REACH.
[2018-01-21] MEDS: fentaNYL 0.025 MG/HR PATCH TD SCH (15:48)
--- NOTE | 2018-01-21 19:06 | NUR ---
BEDSIDE REPORT GIVEN TO PAOLO LOPEZ. IN STABLE CONDITION.
--- NOTE | 2018-01-21 19:10 | NUR ---
RECEIVED PT REPORT FROM DAYSHIFT NURSE FOR CONTINUITY OF CARE. PT IS SLEEPING. NO SOB. NO S/S OF DISTRESS ON RA. NO IV NOTED. BED LOWERED CALL LIGHT WITHIN REACH WILL CONTINUE TO MONITOR.
--- NOTE | 2018-01-21 21:16 | NUR ---
PT REQUESTING FOOD. BUT PT IS NPO. WILL CONTINUE TO MONITOR.
[2018-01-21] MEDS: KETOROLAC 15 MG/ML VIAL IVP PRN (21:59)
[2018-01-21] MEDS ORDERED: MORPHINE SULFATE 4 MG/ML SYR IVP PRN (23:05)
[2018-01-21] MEDS ORDERED: HALOPERIDOL IM 5 MG/ML VIAL IM SCH (23:15)
--- NOTE | 2018-01-22 01:57 | NUR ---
ASSESSED PT. PT SLEEPING. NO SOB. NO S/S OF DISTRESS. WILL CONTINUE TO MONITOR.
[2018-01-22 02:04] VITALS: BP 154/82
--- NOTE | 2018-01-22 03:46 | NUR ---
ASSESSED PT. PT SLEEPING WILL CONTINUE TO MONITOR.
--- NOTE | 2018-01-22 07:35 | NUR ---
GAVE REPORT TO DAYSHIFT NURSE AT BEDSIDE FOR CONTINUITY OF CARE.
--- NOTE | 2018-01-22 07:38 | NUR ---
RECEIVED REPORT FOR THE PT FROM BUS PERSON NURSEPAOLO, PT IS ASLEEP AND SIDE RAILS ARE UP. NO IV LINE INFUSING. NO SIGN OF DISTRESS NOTED. WILL MONITOR.
[2018-01-22] MEDS ORDERED: THROMBIN KIT 20 MU VIAL TP ONE (08:30)
[2018-01-22] MEDS: LACTOBACILLUS RHAMNOSUS GG 1 EACH CAP PO SCH (09:00)
--- NOTE | 2018-01-22 09:31 | NUR ---
CALLED PHARMACY REGARDING A MEDICATION POSTED IN THE PT'S EMAR, THROMBIN KIT 20MU, VIAL, SPOKE TO CAITLYN AND LINDA AND ASKED ABOUT IT. LINDA SAID THAT IT COULD HAVE POSSIBLY BEEN PULLED OUT BY ANOTHER NURSE IN PACU AND HE SAID TO JUST DISREGARD IT.
[2018-01-22] MEDS: NACL 0.9% 1,000 ML IV SCH (09:35)
[2018-01-22] MEDS: GEODON IM SCH ×2 (09:45→21:23)
--- NOTE | 2018-01-22 09:49 | NUR ---
PT IS ASLEEP AND WAKEN AND TOLD THAT MEDICATION WILL BE GIVEN TO HIM THRU INJECTION, PT AGREED AND MEDICATION WAS GIVEN THRU IM INJECTION ON THE LEFT DELTOID, BUT PT REFUSED TO TAKE THE ORAL MEDICATION, CULTURELLE. NO SIGN OF DISTRESS NOTED. SIDE RAILS ARE UP AND WILL MONITOR
[2018-01-22 10:03] VITALS: BP 148/78
--- NOTE | 2018-01-22 10:39 | NUR ---
Desktop Analyst Notes: I call [facility], spoke to Nataliia Hill RN. [phone] about patient level of care change, patient able to be place on a facility under hospice care and needing patient to be re-evaluated. Per Nataliia She will talk to her staff and team and will call me back with information and time to come re-evaluate Patient.
--- NOTE | 2018-01-22 11:30 | NUR ---
CHECKED ON THE PT AND SAW THAT PT IS SLEEPING WITH BLANKET COVERING THE HEAD PART, PT WAS AWAKEN AND WAS TOLD NOT TO COVER THE FACE WITH THE BLANKET. PT OBEYED AND WENT BACK TO SLEEP. NO SIGN OF DISTRESS NOTED, SIDE RAILS ARE UP, CALL LIGHT WITHIN REACH AND WILL CONTINUE TO MONITOR.
--- NOTE | 2018-01-22 13:39 | NUR ---
Industrial Engineer Notes: Manuel Escalera call this journalists and other writers stating that their team will be looking for patient's placement; and will be calling back when placement is found.
--- NOTE | 2018-01-22 13:47 | NUR ---
Disulfurizer Tender Notes: This Highway Safety Engineer Attempted to verify patient's sister Nila Garland. Attempt was unsuccessful
--- NOTE | 2018-01-22 13:59 | NUR ---
PT IS STILL SLEEPING LYING ON THE BED AND DID NOT WANT TO EAT. NO SIGN OF DISTRESS NOTED. CALL LIGHT AND SIDE RAILS ARE UP. WILL MONITOR.
--- NOTE | 2018-01-22 14:25 | NUR ---
THE RN L AND D FROM [facility] CAME AND SPOKE TO ME REGARDING THE PT'S STATUS. REPORTED THE MEDICATIONS THE PT TOOK AND THE VITAL SIGNS RESULT. HUNTER, RN L AND D FROM [facility] SAID SHE WILL DO ASSESSMENT ON THE PT AND WILL SPEAK WITH THE SYSTEM DEVELOPMENT ENGINEER.
--- NOTE | 2018-01-22 15:50 | NUR ---
01/22/18 RD FOLLOW UP COMPLETED PLEASE REFER TO NUTRITION ASSESSMENT UNDER CARE ACTIVITY FOR ESTIMATED NUTRITIONAL NEEDS. 1. CONTINUE DIET PER PT PREFERENCE/TOLERANCE MEDICALLY APPROPRIATE 2. CONTINUE HEALTH SHAKE TID. 3. CONTINUE BOOST PLUS QID *DISCUSSED WITH RESIDENT AND RN. 4. RD WILL F/U 2-3 DAYS; HIGH RISK SAKINA GILLILAND RD
--- NOTE | 2018-01-22 16:00 | NUR ---
PT IS AWAKE AND VITAL SIGN TAKEN, NO SIGN OF DISTRESS NOTED. SIDE RAILS ARE UP AND CALL LIGHT WITHIN REACH AND WILL CONTINUE TO MONITOR.
[2018-01-22 18:00] VITALS: BP 147/75
--- NOTE | 2018-01-22 19:05 | NUR ---
RECEIVED REPORT FROM DAY SHIFT NURSE SURESH. PT IS STABLE AOX 3, BUT LYING IN BED ASKING FOR HELP. PT LINEN AND GOWN WAS CHANGED. DURING ROUTINE CARE PT BECAME AGITATED WITH STAFF AND STARTED TO SPIT TOWARD STAFF AND BECOME UNCOOPERATIVE WITH CARE. PT HAS NO IV SITE BUT HAS IV FLUIDS ORDERED THIS AM,IV SITE INSERTION WAS ATTEMPTED X 5 WITH NO SUCCESS. PT GIVEN ROUTINE GEODON SHOT AND ATIVAN SHOT PRN FOR AGITATION.
--- NOTE | 2018-01-22 19:05 | NUR ---
ENDORSED PT FOR CONTINUITY OF CARE TO INTERNAL CORROSION SPECIALIST NURSE. PT IS AWAKE AND ANTONIA ON THE BED. PT IS STABLE AT THIS TIME.
--- NOTE | 2018-01-22 19:35 | NUR ---
PT LYING IN BED WITH BED IN LOWEST POSITION AND SIDE RAILS UP X 4. PT IS SLEEPING COMFORTABLY WITH NO S/S OF PAIN OR DISTRESS CALL ELAINE PLACED IN REACH AND FREQUENT CHECKS RENDERED.
[2018-01-22 20:00] VITALS: BP 145/79
[2018-01-22] MEDS: LORazepam 2 MG/ML VIAL IM/IVP PRN (21:15)
--- NOTE | 2018-01-22 23:15 | NUR ---
PT RESTLESS AND COMBATIVE DURING ROUTINE CARE AND WAS GIVEN PRN ATIVAN IM SHOT.
[2018-01-23] VITALS: BP 129/79
--- NOTE | 2018-01-23 02:20 | NUR ---
POSITIVE EFFECT OF PRN ATIVAN NOTED PT SLEEPING SOUNDLY IN BED WITH NO S/S OF PAIN OR DISTRESS NOTED. BED IN LOWEST POSITION WITH SIDE RAILS UP X4 CALL ELAINE IN REACH.
--- NOTE | 2018-01-23 04:30 | NUR ---
PT BECAME A LITTLE AGITATED DURING ROUTINE CARE PT STARTED YELLING OUT AT STAFF , BUT ONVCE PT WAS CHANGED AND MADE COMFORTABLE HE WENT BACK TO SLEEP.
[2018-01-23] MEDS: NACL 0.9% 1,000 ML IV SCH (07:00)
--- NOTE | 2018-01-23 07:56 | NUR ---
INITIAL ASSESSMENT PERFORMED. PATIENT EASILY WOKEN BUT SOMNOLENT . NO ACUTE DISTRESS NOTED. LUNG SOUNDS CLEAR. BOWEL SOUNDS ACTIVE X 4 QUADS. DENIES PAIN AT THIS TIME.SKIN INTACT. NO IV ACCESS PER FRAME STRAIGHTENER NURSE AWARE. DISCUSSED PLAN OF CARE WITH PATIENT AT BEDSIDE. PATIENT PENDING PLACEMENT AND IS HOSPICE GIP.BOARD UPDATED. CALL LIGHT WITHIN REACH. WILL CONT TO MONITOR
[2018-01-23 08:00] VITALS: BP 123/71
[2018-01-23] MEDS: LACTOBACILLUS RHAMNOSUS GG 1 EACH CAP PO SCH (09:00)
[2018-01-23] MEDS: GEODON IM SCH ×2 (09:06→20:49)
[2018-01-23] MEDS: KETOROLAC 15 MG/ML VIAL IM PRN (09:13)
--- NOTE | 2018-01-23 09:13 | NUR ---
PATIENT IN BED MOVING AROUND . SHIFTING IN BED. STATING PAIN TO LEFT HIP WITH MOVEMENT. PATIENT REMINDED THAT HE HAS FRACTURE TO LEFT INTERTROCHANTERIC FEMUR FRACTURE AND THAT HE IS TO BE ON BED REST. PATIENT REPOSITIONED IN BED.
[2018-01-23 10:00] VITALS: BP 151/96
[2018-01-23] MEDS: MORPHINE SULFATE 4 MG/ML SYR IM/IVP PRN ×2 (10:31→22:45)
--- NOTE | 2018-01-23 10:35 | NUR ---
PATIENT CONT TO C/O PAIN 10/10 MORPHINE ADMINISTERED. TOLERATED WELL . CALL LIGHT WITHIN REACH. WILL CONT TO MONITOR.
--- NOTE | 2018-01-23 12:30 | NUR ---
PATIENT IN BED. AWAKE AND SHIFTING AROUND IN BED. FREQUENT VISUAL CHECKS. CALL LIGHT WITHIN REACH. WILL CONT TO MONITOR.
--- NOTE | 2018-01-23 14:47 | NUR ---
PATIENT RESTING IN BED WITH EYES CLOSED. NO ACUTE DISTRESS. RESP EVEN AND UNLABORED.NO SOB. CALL LIGHT WITHIN REACH. WILL CONT TO MONITOR.
--- NOTE | 2018-01-23 15:29 | NUR ---
PATIENT IN BED OCCASIONALLY CALLING OUT. ALL NEEDS MET THEY ARISE. CALL LIGHT WITHIN REACH. WILL CONT TO MONITOR.
[2018-01-23 16:00] VITALS: BP 139/82
--- NOTE | 2018-01-23 17:30 | NUR ---
PATIENT TOLERATED HEALTHSHAKE AT DINNER. PATIENT DID NOT VOMIT. PATIENT WITH HOB ELEVATED. WILL CONT TO MONITOR.
--- NOTE | 2018-01-23 19:30 | NUR ---
ENDORSED REPORT TO SENIOR CLINICAL RESEARCH SCIENTIST NURSE. PATIENT STABLE.
--- NOTE | 2018-01-23 19:31 | NUR ---
RECEIVED REPORT FROM AM NURSE AT BEDSIDE FOR THE CONTINUITY OF CARE. PT SLEEPING AT THIS TIME. INTRODUCED SELF TO PT , DID RESPOND HELLO BACK . PT UNABLE TO OPEN EYES WIDE , POOR SPEECH. PT BED AT LOWER POSITION, PT BED ALARM ON. ALL FALL RISK MEASURE IN PLACE. UPDATED BOARD , WILL CONTINUE TO MONITOR PT.
--- NOTE | 2018-01-23 20:10 | NUR ---
CHECKED ON PT. RAISED HEAD OF PT. PROVIDED WATER ,PT USED STRAW TO DRINK WATER, POOR TOLERATION WHILE DRINKING WATER, LITTLE VOMITING NOTED. PT SLIGHTLY AGITATED. PT ASKED TO LEAVE LIGHT ON. BED AT LOWER POSITION. WILL CONTINUE TO PT.
--- NOTE | 2018-01-23 20:49 | NUR ---
ADMINISTER GEDON 10 MG 0.5 ML IM, ON RT DELTOID. PT TOLERATED WELL. PT LYING LFT SIDE. ALL SAFETY MEASURE IN PLACE. WILL CONTINUE TO MONITOR PT.
--- NOTE | 2018-01-23 22:45 | NUR ---
PT COMPLAIN OF PAIN. MEDICATED ORDERED. DRY CLEANING ATTENDANT AT BEDSIDE , CHANGING PT. SKIN INTACT .WILL CONTINUE TO MONITOR PT.
[2018-01-24] VITALS: BP 147/93
--- NOTE | 2018-01-24 01:00 | NUR ---
PT BED ALARM ON. CHECKED ON PT, AGITATED. TRYING GETTING OUT OF BED. NURSE AND GAS LINE INSTALLER AT BEDSIDE. PT COMBATIVE, PUSHED TABLE . PT MADE AWARE OF HIS POOR GAIT. PT LYING ON BED. WILL CONTINUE TO MONITOR
[2018-01-24] MEDS: LORazepam 2 MG/ML VIAL IM/IVP PRN ×4 (01:05→23:15)
--- NOTE | 2018-01-24 01:05 | NUR ---
PT CONTINUES TO BE AGITATED. MEDICATED WITH ATIVAN ORDERED. WILL CONTINUE TO MONITOR PT.
[2018-01-24] MEDS: NACL 0.9% 1,000 ML IV SCH ×2 (01:35→20:45)
--- NOTE | 2018-01-24 02:00 | NUR ---
EP. NO S/S OF ANY DISCOMFORT NOTED AT THIS TIME. WILL CONTINUE TO MONITOR.
--- NOTE | 2018-01-24 03:00 | NUR ---
MADE ROUNDS. PT SLEEPING WELL . NO S/S OF ANY DISCOMFORT/NOR DISTRESS NOTED.
--- NOTE | 2018-01-24 04:00 | NUR ---
CHECKED ON PT, SLEEPING AT THIS TIME. WILL CONTINUE TO MONITOR.
--- NOTE | 2018-01-24 04:30 | NUR ---
CHECKED ON PT. SLEEPING AT THIS TIME.ALL SAFETY MEASURE IN PLACE. WILL CONTINUE TO MONITOR.
--- NOTE | 2018-01-24 07:20 | NUR ---
ENDORSED PT TO AM NURSE AT BEDSIDE FOR CONTINUITY OF CARE. PT IN STABLE CONDITION.
--- NOTE | 2018-01-24 07:21 | NUR ---
RECEIVED REPORT FROM CAPPING MACHINE OPERATOR NURSE. PATIENT LYING IN BED IN AGITATED MOOD, SHOUTING "I WANT FOOD". PATIENT UNABLE TO TOLERATE FOOD AT THIS TIME DUE TO ESOPHAGEAL CANCER. RESPIRATIONS EVEN, UNLABORED, ON ROOM AIR. AAOX1, AGITATED MOOD. SKIN COLOR APPROPRIATE TO ETHNICITY, WARM TO TOUCH. CACHEXIC. LUNGS CTA ON ALL LOBES. ABDOMEN SOFT, NON-DISTENDED. NO IV SITE DUE TO PATIENT REFUSING. SAFETY MEASURES IN PLACE, CALL LIGHT WITHIN REACH. WILL CONTINUE TO MONITOR.
[2018-01-24 08:00] VITALS: BP 152/84
[2018-01-24] MEDS: GEODON IM SCH ×2 (08:07→20:27)
--- NOTE | 2018-01-24 08:26 | NUR ---
PATIENT IN AGITATED AND RESTLESS MOOD. ASSISTED LINE PALLETIZER IN CLEANING AND REPOSITIONING PATIENT. ATIVAN GIVEN PER MD ORDERS. OTHER SCHEDULED MEDICATIONS DUE GIVEN. SAFETY MEASURES IN PLACE, CALL LIGHT WITHIN REACH. WILL CONTINUE TO MONITOR.
[2018-01-24] MEDS: LACTOBACILLUS RHAMNOSUS GG 1 EACH CAP PO SCH (08:38)
--- NOTE | 2018-01-24 08:38 | NUR ---
LACTOBACILLUS MEDICATION NOT GIVEN DUE TO PATIENT NOT ABLE TO TOLERATE ORAL MEDICATIONS. GAVE ORANGE JUICE AND SHAKE FOR BREAKFAST, PATIENT NOT ABLE TO TOLERATE AND STARTED CHOKING AND SMALL VOMIT. SAFETY MEASURES IN PLACE, CALL LIGHT WITHIN REACH. WILL CONTINUE TO MONITOR.
--- NOTE | 2018-01-24 09:00 | NUR ---
KARMEN NURSE ON UNIT PERFORMING ASSESSMENT WITH PATIENT. REPORTS STILL LOOKING FOR A HOSPICE PLACE FOR PATIENT, HOWEVER, PATIENT'S BEHAVIOR NEEDS TO BE CONTROLLED BEFOREHAND. KARMEN NURSE TO TALK TO ANIMAL CRUELTY INVESTIGATION SUPERVISOR. WILL CONTINUE TO MONITOR.
--- NOTE | 2018-01-24 10:31 | NUR ---
PATIENT LYING DOWN IN BED SLEEPING. NO DISTRESS NOTED. DENIES ANY PAIN. SAFETY MEASURES IN PLACE, CALL LIGHT WITHIN REACH. WILL CONTINUE TO MONITOR .
--- NOTE | 2018-01-24 12:11 | NUR ---
PATIENT LYING IN BED SLEEPING, AROUSABLE BY VOICE. NO DISTRESS NOTED. DENIES ANY PAIN. SAFETY MEASURES IN PLACE, CALL LIGHT WITHIN REACH. WILL CONTINUE TO MONITOR.
--- NOTE | 2018-01-24 13:30 | NUR ---
PATIENT AWAKE, CONFUSED AND TRYING TO GET OUT OF BED. CONTINUES TO ASK FOR FOOD DESPITE REINFORCEMENT THAT HE CHOKES DUE TO ESOPHAGEAL CANCER. SAFETY MEASURES IN PLACE, CALL LIGHT WITHIN REACH. WILL CONTINUE TO MONITOR.
--- NOTE | 2018-01-24 14:10 | NUR ---
PATIENT IN AGITATED MOOD, ATIVAN GIVEN PER ORDERS. SAFETY MEASURES IN PLACE, CALL LIGHT WITHIN REACH. WILL CONTINUE TO MONITOR.
[2018-01-24] MEDS: fentaNYL 0.025 MG/HR PATCH TD SCH (15:41)
--- NOTE | 2018-01-24 15:43 | NUR ---
PATIENT LYING IN BED IN AGITATED MOOD, TRYING TO GET OUT OF BED WHEN PATIENT IS VERY WEAK. FALL PRECAUTIONS IN PLACE. SCHEDULED MEDICATIONS DUE GIVEN. SAFETY MEASURES IN PLACE, CALL LIGHT WITHIN REACH. WILL CONTINUE TO MONITOR.
[2018-01-24 16:23] VITALS: BP 150/90
--- NOTE | 2018-01-24 17:39 | NUR ---
PATIENT LYING DOWN IN BED SLEEPING, AROUSABLE BY VOICE. NO DISTRESS NOTED. DENIES ANY PAIN. CONDITION UNCHANGED. SAFETY MEASURES IN PLACE, CALL LIGHT WITHIN REACH. WILL CONTINUE TO MONITOR.
--- NOTE | 2018-01-24 18:48 | NUR ---
PATIENT LYING DOWN IN BED SLEEPING, AROUSABLE BY VOICE. NO DISTRESS NOTED. DENIES ANY PAIN. SAFETY MEASURES IN PLACE, CALL LIGHT WITHIN REACH. WILL CONTINUE TO MONITOR.
--- NOTE | 2018-01-24 19:22 | NUR ---
GAVE REPORT TO OIL DISTRIBUTOR NURSE FOR CONTINUITY OF CARE. PATIENT IN STABLE CONDITION.
--- NOTE | 2018-01-24 19:23 | NUR ---
RECEIVED BEDSIDE REPORT FROM DAY SHIFT NURSE ROSA RN, PT STABLE, NO DISTRESS NOTED, PT HAS NO IV ACCESS, ON ROOM AIR NO SOB, INITIAL ASSESSMENT DONE, ALL SAFETY PRECAUTION MET, WILL CONTINUE TO MONITOR.
--- NOTE | 2018-01-24 20:24 | NUR ---
DUE MEDICATION ADMINISTERED, PT TOLERATED WELL, NO DISTRESS NOTED, IVF NOT ADMINISTERED PT HAS NO IV ACCESS, PT STABLE, WILL CONTINUE TO MONITOR.
--- NOTE | 2018-01-24 23:15 | NUR ---
PT AGITATED, ATIVAN GIVEN IM, PT TOLERATED WELL, NO DISTRESS NOTED, CALL LIGHT WITHIN REACH WILL CONTINUE TO MONITOR.
--- NOTE | 2018-01-24 23:36 | NUR ---
PT STATED WANTING TO EAT SOME CHOCOLATE, GAVE PT SOME SOFT CHOCOLATE CAKE, PT ATE SOME THEN AFTER A FEW MINUTES STARTED TO VOMITED THE CHOCOLATE OUT, PT STABLE, NO DISTRESS NOTED, CALL LIGHT WITHIN REACH, WILL CONTINUE TO MONITOR.
[2018-01-24 23:47] VITALS: BP 153/84
--- NOTE | 2018-01-25 01:20 | NUR ---
PT SLEEPING, NO DISTRESS NOTED, CALL LIGHT WITHIN REACH, WILL CONTINUE TO MONITOR
--- NOTE | 2018-01-25 03:48 | NUR ---
CHECKED ON PT, PT SLEEPING, NO DISTRESS NOTED, CALL LIGHT WITHIN REACH, WILL CONTINUE TO MONITOR
--- NOTE | 2018-01-25 04:47 | NUR ---
CHANGED AND CLEAN PT, PT TOLERATED WELL, NO DISTRESS NOTED,CALL LIGHT WITHIN REACH, WILL CONTINUE TO MONITOR.
--- NOTE | 2018-01-25 07:15 | NUR ---
ENDORSED PLAN OF CARE TO DAY SHIFT NURSE ALFONZO RN, PT STABLE, NO DISTRESS NOTED, CALL LIGHT WITHIN REACH
--- NOTE | 2018-01-25 07:16 | NUR ---
RECEIVED REPORT AT BEDSIDE FROM CREDIT ASSESSMENT ANALYST NURSE FOR CONTINUITY OF CARE. PT IS SOUND ASLEEP. UPDATED THE BOARD. WILL ASSESS PT WHEN PT IS MORE ALERT. PER CREDIT ASSESSMENT ANALYST RN, PT IS JUST WAITING ON PLACEMENT. PT IS CURRENTLY ON HOSPICE. WILL CONTINUE TO MONITOR PT.
[2018-01-25 08:00] VITALS: BP 126/87
[2018-01-25] MEDS: GEODON IM SCH ×2 (08:50→20:23)
[2018-01-25] MEDS: LORazepam 2 MG/ML VIAL IM/IVP PRN ×2 (08:50→22:34)
[2018-01-25] MEDS: KETOROLAC 15 MG/ML VIAL IM PRN (08:50)
--- NOTE | 2018-01-25 08:56 | NUR ---
ADMINISTERED GEODON, TORADOL, AND ATIVAN VIA IM. PT TOLERATED WELL. PT HAS OCCASIONAL GRIMACE. FLACC-6. PT TOLERATED WELL. WILL CONTINUE TO MONITOR PT.
[2018-01-25] MEDS: LACTOBACILLUS RHAMNOSUS GG 1 EACH CAP PO SCH (09:00)
--- NOTE | 2018-01-25 10:00 | NUR ---
KARMEN ZAFAR CAME OUT TO ASSESS PT.
--- NOTE | 2018-01-25 12:55 | NUR ---
PT SLEEPING SOUNDLY. NO SIGNS OF DISTRESS. WILL CONTINUE TO MONITOR PT.
--- NOTE | 2018-01-25 15:15 | NUR ---
PT SLEEPING. NO SIGNS OF DISTRESS. WILL CONTINUE TO MONITOR PT.
[2018-01-25 16:00] VITALS: BP 119/79
[2018-01-25] MEDS: NACL 0.9% 1,000 ML IV SCH (16:54)
--- NOTE | 2018-01-25 17:56 | NUR ---
REFUSED DINNER. SLEEPING. NO SIGNS OF DISTRESS. WILL CONTINUE TO MONITOR PT.
--- NOTE | 2018-01-25 19:05 | NUR ---
REPORT RECEIVED FROM DAY SHIFT. PT IN STABLE CONDITION. WILL CONTINUE TO MONITOR.
--- NOTE | 2018-01-25 19:10 | NUR ---
ENDORSED PT TO THE PHOTOGRAPHY ASSISTANT NURSE AT BEDSIDE FOR CONTINUITY OF CARE. PT IN STABLE CONDITION.
[2018-01-25 19:48] VITALS: BP 126/82
--- NOTE | 2018-01-25 19:58 | NUR ---
PT IN STABLE CONDITION AND VS STABLE. PT SLEEPING BUT AROUSABLE. LUNGS CLEAR BILATERALLY. HEART SOUNDS S1 S2 NORMAL. BOWEL SOUNDS PRESENT X4 QUADRANTS. SKIN INTACT WARM AND DRY. PT BREATHING ON RA. NO S/S OF PAIN OR DISCOMFORT. BED LOCKED IN LOW POSITION. CALL ELAINE WITHIN REACH. WILL CONTINUE TO MONITOR.
--- NOTE | 2018-01-25 20:25 | NUR ---
PM MED GIVEN. PT TOLERATED WELL. WILL CONTINUE TO MONITOR. Addendum: 01/25/18 at 2029 by Óscar Hines RN PT IN STABLE CONDITION.
--- NOTE | 2018-01-25 22:35 | NUR ---
PT CLEANED, LINEN AND GOWN CHANGE. ATIVAN GIVEN. PT TOLERATED WELL. PT NOT IN ANY ACUTE DISTRESS. WILL CONTINUE TO MONITOR Addendum: 01/26/18 at 0326 by Óscar Hines RN ATIVAN GIVEN FOR AGITATION.
[2018-01-26] VITALS: BP 144/76
--- NOTE | 2018-01-26 01:02 | NUR ---
PT SLEEPING BUT AROUSABLE. RESP EVEN AND UNLABORED. NO S/S OF PAIN. SAFETY PRECAUTION IN PLACE. CALL LIGHT WITHIN REACH.
[2018-01-26 01:26] VITALS: BP 144/76
--- NOTE | 2018-01-26 04:39 | NUR ---
PT BREATHING AND SLEEPING. PT IN NOT ACUTE DISTRESS. WILL CONTINUE TO MONITOR.
--- NOTE | 2018-01-26 05:30 | NUR ---
PT AWAKE AND YELLING. PT IN NO ACUTE DISTRESS. WILL CONTINUE TO MONITOR.
--- NOTE | 2018-01-26 07:27 | NUR ---
REPORT GIVEN TO MORNING NURSE. PT IN NO ACUTE DISTRESS.
--- NOTE | 2018-01-26 07:28 | NUR ---
RECEIVED REPORT FROM THE ENVIRONMENTAL CONSERVATION OFFICER NURSE AT BEDSIDE FOR CONTINUITY OF CARE. PT IS AWAKE. MOANING. ASKED PT IF HE WAS IN PAIN. PT GRIMACING. NO ANSWER. WILL GIVE TORADOL ALONG WITH THE GEODON. PER ENVIRONMENTAL CONSERVATION OFFICER NURSE, PT VOMITED X2 LAST SHIFT. NO IV ACCESS. WILL CONTINUE TO MONITOR PT.
[2018-01-26] MEDS ORDERED: LORazepam 2 MG/ML VIAL IM/IVP PRN (07:40)
[2018-01-26 08:00] VITALS: BP 128/78
[2018-01-26] MEDS ORDERED: KETOROLAC 15 MG/ML VIAL IM PRN (08:20)
[2018-01-26] MEDS: GEODON IM SCH ×2 (08:41→20:04)
--- NOTE | 2018-01-26 08:47 | NUR ---
PT AGITATED, TRYING TO GET OUT OF BED. MOANING. CALLING OUT "MAMA". ADMINISTERED GEODON, ATIVAN, AND TORADOL. PT IS FINALLY CALMING DOWN. WILL CONTINUE TO MONITOR PT. Addendum: 01/26/18 at 0852 by Mila Mathews RN HELD PROBIOTIC. PT UNABLE TO SWALLOW.
[2018-01-26] MEDS: LACTOBACILLUS RHAMNOSUS GG 1 EACH CAP PO SCH (08:51)
--- NOTE | 2018-01-26 09:55 | NUR ---
PT FELL ASLEEP AFTER MORNING INJ FOR ABOUT AN HOUR OR SO. WOKE UP AGAIN, STILL VERY GROGGY, MUMBLING. WILL CONTINUE TO MONITOR PT.
--- NOTE | 2018-01-26 10:15 | NUR ---
HOSPICE NURSE IS HERE. ASSESSED PT.
--- NOTE | 2018-01-26 10:36 | NUR ---
01/26/18 RD FOLLOW UP COMPLETED PLEASE REFER TO NUTRITION PROGRESS NOTE UNDER CARE ACTIVITY FOR ESTIMATED NUTRITION NEEDS. RD RECOMMENDATIONS: 1. CONTINUE DIET PER PT PREFERENCE/TOLERANCE MEDICALLY APPROPRIATE 2. CONTINUE HEALTH SHAKE TID. 3. CONTINUE BOOST PLUS QID. 4. RD WILL F/U 2-3 DAYS; HIGH RISK. LOKI PETERSON MS, RDN
[2018-01-26] MEDS: NACL 0.9% 1,000 ML IV SCH (11:34)
--- NOTE | 2018-01-26 11:35 | NUR ---
PT TRYING TO GET OUT OF BED. MUMBLING WORDS. GAVE PT SOME WATER. TOLERATED WELL. WILL CONTINUE TO MONITOR PT.
--- NOTE | 2018-01-26 12:40 | NUR ---
PT AGITATED, ATTEMPTS TO GET OUT OF BED. THROWING PILLOWS, TOWEL, SHEETS, GOWN ON THE FLOOR. PT IS NAKED. TRIED TO GRAB MY BADGE AND MY ARM. HAD TO PUT ON SOFT RESTRAINTS. WILL TALK TO MD ABOUT GETTING ORDER FOR ATIVAN.
[2018-01-26] MEDS: LORazepam 2 MG/ML VIAL IM/IVP PRN ×2 (13:00→20:06)
--- NOTE | 2018-01-26 13:00 | NUR ---
PT AGITATED. ADMINISTERED ATIVAN. PT TOLERATED WELL. WILL CONTINUE TO MONITOR PT.
--- NOTE | 2018-01-26 13:20 | NUR ---
REMOVED SOFT RESTRAINTS. PT CALM. WILL CONTINUE TO MONITOR PT.
[2018-01-26 16:00] VITALS: BP 117/77
--- NOTE | 2018-01-26 16:46 | NUR ---
PT SLEEPING SOUNDLY. NO SIGNS OF DISTRESS. WILL CONTINUE TO MONITOR PT.
--- NOTE | 2018-01-26 19:15 | NUR ---
ENDORSED PT TO THE NIGHTSHIFT NURSE AT BEDSIDE FOR CONTINUITY OF CARE. PT IS IN STABLE CONDITION.
--- NOTE | 2018-01-26 19:30 | NUR ---
RECEIVED REPORT FROM DAY SHIFT, PATIENT AWAKE, BUT CONFUSED, AND SHOUTING,"WENDI ADAME" RESPIRATION EVEN AND UNLABORED, ROOM AIR. NO IV ACCESS NOTED. LOKIE DRIVER IS IN THE ROOM CHANGING BED SHEET, SAFETY MEASURE ENSURED, WILL CONTINUE TO MONITOR.
--- NOTE | 2018-01-26 20:16 | NUR ---
PATIENT WAS SHOUTING AND TRYING TO GET OUT OF THE BED, ASSISTED PATIENT BACK TO THE MIDDLE OF THE BED, PATIENT THREW HIS GOWN AND PILLOW TOWARD THE STRADDLE BUG. BP 155/91 HR 82, ATIVAN GIVEN ORDERED FOR AGITATION. SAFETY MEASURE ENSURED, WILL CONTINUE TO MONITOR.
[2018-01-26] MEDS: MORPHINE SULFATE 4 MG/ML SYR IM/IVP PRN (22:03)
--- NOTE | 2018-01-26 22:10 | NUR ---
PATIENT MOANING AND HITTING ON THE SIDE RAIL. BP 161/71, HR 78, MORPHINE GIVEN ORDERED. CALL LIGHT WITHIN REACH, SAFETY MEASURE ENSURED, WILL CONTINUE TO MONITOR.
[2018-01-26 23:59] VITALS: BP 159/81
--- NOTE | 2018-01-27 00:01 | NUR ---
PATIENT IS SLEEPING, NO S/S OF DISTRESS NOTED, RESPIRATION EVEN AND UNLABORED, VITAL SIGNS STABLE. SAFETY MEASURE ENSURED, WILL CONTINUE TO MONITOR.
[2018-01-27] MEDS: LORazepam 2 MG/ML VIAL IM/IVP PRN ×2 (01:43→15:24)
--- NOTE | 2018-01-27 01:54 | NUR ---
PT AGITATED, ATTEMPTED TO GET OUT OF BED. PILLOWS, AND GOWN ON THE FLOOR. PT IS NAKED. BP 158/74, HR 87, ATIVAN GIVEN ORDERED FOR AGITATION. SAFETY MEASURE ENSURED, WILL CONTINUE TO MONITOR.
[2018-01-27] MEDS: MORPHINE SULFATE 4 MG/ML SYR IM/IVP PRN ×4 (04:22→22:54)
--- NOTE | 2018-01-27 04:30 | NUR ---
HITTING THE SIDE RAILS AND SHOUTING " WENDI ADAME." BP 168/87, HR 89, MORPHINE ADMINISTERED ORDERED. SAFETY MEASURE ENSURED, WILL CONTINUE TO MONITOR.
[2018-01-27 06:35] LABS: BASOPHILS % (AUTO) 0.1 % (0.0-2.0); EOSINOPHILS % (AUTO) 0.2 % (0.0-4.0); HEMATOCRIT 38.5 % (36-52); HEMOGLOBIN 12.8 g/dL (12.0-18.0); LYMPHOCYTES # (AUTO) 0.5 K/uL (2.0-11.5); LYMPHOCYTES % (AUTO) 2.6 % (20.5-51.1); MEAN CORPUSCULAR HEMOGLOBIN 30 pg (27-31); MEAN CORPUSCULAR HGB CONC 33 g/dL (33-37); MONOCYTES # (AUTO) 0.7 K/uL (0.8-1.0); NEUTROPHILS % (AUTO) 93.1 % (42.2-75.2); PLATELET COUNT (AUTO) 464 K/uL (140-450); RED BLOOD CELL COUNT(AUTO) 4.33 MIL/uL (4.20-6.10); RED CELL DISTRIBUTION WIDTH 16.6 % (11.6-13.7); WHITE BLOOD COUNT (AUTO) 17.2 K/uL (4.8-10.8)
--- NOTE | 2018-01-27 06:35 | NUR ---
PATIENT RESTING IN BED, NO S/S OF DISTRESS NOTED, RESPIRATION EVEN AND UNLABORED, ON ROOM AIR. SAFETY MEASURE ENSURED, WILL CONTINUE TO MONITOR.
[2018-01-27 06:51] LABS: ANION GAP 9.7 (8-16); CARBON DIOXIDE 33.2 mmol/L (21-32); CREATININE 0.7 mg/dL (0.7-1.3); POTASSIUM 3.9 mmol/L (3.5-5.1)
--- NOTE | 2018-01-27 07:00 | NUR ---
ASSUMED CONTINUITY OF CARE. NO SIGNS AND SYMPTOMS OF ACUTE DISTRESS. INITIAL ASSESSMENT DONE. RE-ORIENTED TO EVENTS AND SURROUNDINGS. HOB ELEVATED AND KEEP COMFORTABLE. NON-COMPLIANT TO SAFETY. FALL PRECAUTION APPLIED. CALL LIGHT WITHIN REACH.
--- NOTE | 2018-01-27 07:00 | NUR ---
ENDORSED PLAN OF CARE TO AMBER, PATIENT RESTING IN BED IN STABLE CONDITION.
--- NOTE | 2018-01-27 07:05 | NUR ---
Patient's Plan of Care was discussed and reviewed with CUSTODIAN: Missael WARD
--- NOTE | 2018-01-27 07:26 | NUR ---
AND RESIDENTS MD CAME FOR PT. AM ROUNDS.
[2018-01-27 08:00] VITALS: BP 135/68
[2018-01-27] MEDS: LACTOBACILLUS RHAMNOSUS GG 1 EACH CAP PO SCH (09:00)
--- NOTE | 2018-01-27 09:00 | NUR ---
KARMEN ACUÑA -RN CAME AND ASSESSED PT.. PT. RESTING COMFORTABLY ON BED.
[2018-01-27] MEDS: GEODON IM SCH ×2 (09:20→22:05)
[2018-01-27] MEDS: NACL 0.9% 1,000 ML IV SCH (09:35)
--- NOTE | 2018-01-27 10:52 | NUR ---
SKIN ASSESSMENT DONE WITH PRIMARY NURSE FOR LOW SATHYA SCORE. PT. SKIN IS WARM AND DRY, SKIN INTACT. PT. IS VERY SKINNY, SKIN TO BONE. APPLY OPTIFORM TO SACROCOCCYX AREA FOR PREVENTION. KEEP PT. DRY AND CLEAN, TURN / REPOSITION PT Q2H. ALL PRESSURE ULCER PREVENTION MEASUREMENT APPLY GUIDELINES.
--- NOTE | 2018-01-27 11:30 | NUR ---
SLEEPING IN COMFORTABLE POSITION. NO DIFFICULTY BREATHING OBSERVED. KEEP FREE FROM INJURY.
[2018-01-27 12:00] VITALS: BP 118/77
[2018-01-27] MEDS: fentaNYL 0.025 MG/HR PATCH TD SCH (15:10)
--- NOTE | 2018-01-27 15:20 | NUR ---
AGITATED, RESTLESS, AND TRIED TO GET OUT FROM BED. PT. HIGH RISK FOR FALL. RE-ORIENTED TO EVENTS AND SURROUNDINGS. INCREASE MONITORING. TRIED TO CALM DOWN. KEEP FREE FROM FALL. CALL LIGHT WITHIN REACH.
--- NOTE | 2018-01-27 17:00 | NUR ---
SEEN SLEEPING COMFORTABLY. NO ACUTE DISTRESS NOTICED. CONTINUE MONITORING.
--- NOTE | 2018-01-27 19:15 | NUR ---
BEDSIDE REPORT GIVEN TO GUILLERMO DUMONTN. PT. IN STABLE CONDITION. RESTING COMFORTABLY IN BED.
--- NOTE | 2018-01-27 19:16 | NUR ---
RECD. RESTING IN BED SLEEPING COMFORTABLY BUT EASILY WAKES UP WHEN NAME CALLED. RESPIRATION EVEN AND UNLABORED. CATHEXIC, ON AIR MATTRESS. SAFETY MEASURES ENFORCED. NO IV LINE. NO ANXIETY OR AGITATION NOTED. WILL CONTINUE TO MONITOR AND ENSURE SAFETY DURING SHIFT. NO APPEARANCE OF PAIN NOTED 0/10.
[2018-01-27 20:00] VITALS: BP 121/72
--- NOTE | 2018-01-27 20:00 | NUR ---
Patient's Plan of Care was discussed and reviewed with HOUSE BUILDER: GUILLERMO DONALDSON
--- NOTE | 2018-01-27 20:30 | NUR ---
OCCASIONALLY WAKES UP BUT WENT BACK TO SLEEP AGAIN, DOES NOT RESPOND WHEN QUESTIONS ASKED JUST MOANS WHEN MOVED. CALLS MOM IN A LOUD VOICE AT TIMES.
--- NOTE | 2018-01-27 21:00 | NUR ---
STILL SLEEPING COMFORTABLY IN BED.
--- NOTE | 2018-01-27 22:00 | NUR ---
CLEANSED AND MADE COMFORTABLE IN BED WITH PILLOWS.
[2018-01-27 22:47] VITALS: BP 143/89
--- NOTE | 2018-01-28 | NUR ---
STILL SLEEPING COMFORTABLY.
--- NOTE | 2018-01-28 02:00 | NUR ---
PATIENT DOES NOT RESPOND VERBALLY. RESPIRATION EVEN AND UNLABORED.
[2018-01-28 04:00] VITALS: BP 104/65
--- NOTE | 2018-01-28 04:00 | NUR ---
02 SAT - 88 -90%, PLACED ON 02 AT 2 LITERS N/C, 02 SAT - 94%.
[2018-01-28] MEDS: NACL 0.9% 1,000 ML IV SCH (05:35)
--- NOTE | 2018-01-28 06:53 | NUR ---
RESTING IN BED, NO AGITATION NOTED DURING SHIFT. LETHARGIC BUT VS STILL STABLE. WILL ENDORSE TO AM NURSE FOR CONTINUITY OF CARE.
--- NOTE | 2018-01-28 07:15 | NUR ---
CONDITION REMAIN STABLE. ENDORSED TO AM NURSE FOR CONTINUITY OF CARE.
--- NOTE | 2018-01-28 07:16 | NUR ---
RECEIVED REPORT FROM CIVIL ENGINEERING PROJECT DESIGNER NURSE AT BEDSIDE FOR CONTINUITY OF CARE. PATIENT SLEEPING COMFORTABLE, BREATHING EVEN AND UNLABORED ON 2L O2 NC. NO DISTRESS OR PAIN NOTED, FLACC-0. NO AGITATION OR ANXIETY NOTED. PATIENT ON WOUND MATTRESS. NO IV ACCESS. SAFETY PRECAUTION IN PLACE, BED ON LOWEST POSITION, BED ALARM ON, CALL LIGHT WITHIN REACH. WILL CONTINUE TO MONITOR PATIENT.
[2018-01-28 08:00] VITALS: BP 126/68
--- NOTE | 2018-01-28 08:30 | NUR ---
PATIENT RESTING IN BED, PATIENT DOES NOT RESPOND VERBALLY. NO AGITATION OR ANXIETY NOTED, NO SIGNS OF DISTRESS OR SOB, O2 SAT AT 91% ON 2L O2 NC. FLACC-0. SAFETY PRECAUTION IN PLACE, BED ON LOWEST SETTING, BED ALARM ON, CALL LIGHT WITHIN REACH, WILL CONTINUE TO MONITOR PATIENT.
[2018-01-28] MEDS: LACTOBACILLUS RHAMNOSUS GG 1 EACH CAP PO SCH (08:44)
--- NOTE | 2018-01-28 09:00 | NUR ---
ORDERED MEDICATIONS NOT ADMINISTERED BECAUSE PATIENT IS UNRESPONSIVE. NO SIGNS OF DISTRESS OR SOB NOTED ON 2L O2 NC. SAFETY PRECAUTION IN PLACE, CALL LIGHT WITHIN REACH, WILL CONTINUE TO MONITOR PATIENT.
--- NOTE | 2018-01-28 10:17 | NUR ---
PATIENT VOIDED, PATIENT CHANGED AND REPOSITION FOR COMFORT AND TO OFFLOAD PRESSURE AREAS. DR. DEMPSEY IN TO SEE THE PATIENT. O2 SATURATION 85%-88%. IV INSERTED ON LEFT HAND, 22G, INTACT, ASYMPTOMATIC, AND PATENT. SAFETY PRECAUTION IN PLACE, CALL LIGHT WITHIN REACH, WILL CONTINUE TO MONITOR PATIENT.
--- NOTE | 2018-01-28 12:41 | NUR ---
HUNTER RN FROM [facility], IN TO SEE THE PATIENT. UPDATED HER ON PATIENT'S CONDITION. SHE VERBALIZED UNDERSTANDING. NO DISTRESS OR SOB NOTED, FLACC-0. BP 91/54, HR, 118, O2 89 ON 2L NC, PATIENT BREATHING IS LABORED. SAFETY PRECAUTION IN PLACE, CALL LIGHT WITHIN REACH, WILL CONTINUE TO MONITOR PATIENT.
[2018-01-28] MEDS ORDERED: MORPHINE SULFATE 4 MG/ML SYR IM/IVP PRN (12:45)
--- NOTE | 2018-01-28 13:06 | NUR ---
PATIENT RESTING, BREATHING EVEN AND LABORED. NO SIGNS OF DISTRESS OR PAIN NOTED, FLACC-0. SAFETY PRECAUTION IN PLACE, CALL LIGHT WITHIN REACH, WILL CONTINUE TO MONITOR PATIENT.
[2018-01-28 16:00] VITALS: BP 80/51
--- NOTE | 2018-01-28 16:45 | NUR ---
PATIENT VOIDED, PATIENT CHANGED AND REPOSITION FOR COMFORT AND TO OFFLOAD PRESSURE AREAS. NO SIGN OF DISTRESS OR SOB NOTED, O2 SATURATION 85%-91% ON 3L O2 NC. SAFETY PRECAUTION IN PLACE, CALL LIGHT WITHIN REACH, WILL CONTINUE TO MONITOR PATIENT.
--- NOTE | 2018-01-28 19:24 | NUR ---
RECEIVED REPORT FROM MORNING NURSE. PT RESTING IN BED. BREATHING IS LABORED. WILL CONTINUE TO MONITOR.
--- NOTE | 2018-01-28 19:25 | NUR ---
REPORT GIVEN TO TAPER OPERATOR NURSE AT BEDSIDE FOR CONTINUITY OF CARE. PATIENT IN STABLE CONDITION.
--- NOTE | 2018-01-28 20:30 | NUR ---
PT RESTING COMFORTABLY IN BED. NO S/S OF DISTRESS NOTED. RESPIRATIONS LABORED. BP 51/30 PULSE 135. O2 SAT: 90%
--- NOTE | 2018-01-28 21:45 | NUR ---
PT RESTING COMFORTABLY IN BED. NO S/S OF DISTRESS NOTED. RESPIRATIONS LABORED.
--- NOTE | 2018-01-28 22:19 | NUR ---
DR. STEVEN MADE AWARE THAT PT .
--- NOTE | 2018-01-28 22:19 | NUR ---
PT AT 221807/06/18. PT IS DNR, ON HOSPICE CARE. [facility] NOTIFIED. DIRECTOR OF MATH NOTIFIED. HOSPICE NOTIFIED.
--- NOTE | 2018-01-28 22:45 | NUR ---
CALLED [facility] TO REPORT. THEY WILL GIVE A CALL BACK SOON [facility] REPORT IS COMPLETE.
--- NOTE | 2018-01-28 23:05 | NUR ---
[facility] CALLED. CALLED FROM [facility]. REPORT GIVEN. [facility] ASKED FOR SOME FORM OF IDENTIFICATION AND CANNOT FOLLOWING THROUGH WITH THE PROCESS UNTIL SOME OF ID IS FOUND.
--- NOTE | 2018-01-28 23:40 | NUR ---
CALLED BACK FROM INBOUND SALES CONSULTANT [facility]. EXPLAINED TO HER THAT WE HAVE INSURANCE ELIGIBILITY FORM OF ID. SHE STATED, "HOW DO WE KNOW WHO WE ARE BILLING IF WE HAVE NO ID PRESENT." SHE SAID SHE WILL NEED TO COME IN TO SEE PT.
--- NOTE | 2018-01-28 23:43 | NUR ---
KARMEN ACUÑA CALLED AT [phone]. REPORT GIVEN. HEALTHCARE PROFESSIONAL WILL BE ON SITE LATER HUSSEIN. Addendum: 01/28/18 at 3195 by Óscar Hines RN CALLED AT 3500.
--- NOTE | 2018-01-29 00:14 | NUR ---
[facility] HERE NOW
--- NOTE | 2018-01-29 00:45 | NUR ---
[facility] JIMÉNEZ FINGER PRINTED PT AND WAS ABLE TO LOOK PT UP IN THE SYSTEM AND FOUND FAMILY MEMBER CONTACT INFORMATION
--- NOTE | 2018-01-29 00:46 | NUR ---
PLASTER HELPER HERE NOW TO ASSESS PT
--- NOTE | 2018-01-29 01:26 | NUR ---
SAMIA RN TELEPHONE REPAIRER TRIED TO CALL PT'S SISTER # [phone].IT WAS BUSY AND SHE WAS UNABLE TO CONTACT HER.
--- NOTE | 2018-01-29 01:35 | NUR ---
CHARGE NURSE PAULINO ON PHONE WITH SISTER AT THIS TIME. PHONE NUMBER PROVIDED BY INSPECTOR POISING WHEN SHE RAN PTS FINGER PRINTS THROUGH SYSTEM
--- NOTE | 2018-01-29 01:36 | NUR ---
PAINTER INTERIOR FINISH LEFT AT THIS TIME, SHE STATED TO GIVE FAMILY MORE TIME BEFORE CALLING MORTUARY
--- NOTE | 2018-01-29 01:55 | NUR ---
[facility] CALLED BACK AND STATED THAT PT IS ELIGIBLE FOR [facility]ATION AND THEY WILL CALL BACK IN AN HOUR
--- NOTE | 2018-01-29 02:06 | NUR ---
PAULINO CHARGE NURSE ON PHONE WITH FAMILY AT THIS TIME. FAMILY STATES THEY MIGHT BE COMING TO VISIT AND WILL LET US KNOW
--- NOTE | 2018-01-29 03:43 | NUR ---
CALLED FAMILY AGAIN AND LEFT A MESSAGE
--- NOTE | 2018-01-29 03:43 | NUR ---
I CALLED PT'S SISTER MARINO AT [phone].SHE SAID SHE IS IN [place] AND WILL CALL HER OTHER SISTER AND BROTHER.SO AT 0205 PT'S OTHER SISTER PRIETO CALLED.I TALKED W/HER AND EXPLAINED THAT WE CAN NOT KEEP BODY FOR A LONG TIME HERE.SO IF THEY HAVE PLAN TO PT.LET US KNOW.SHE DIDN'T CALL TILL NOW.I CALLED HER #[phone] AND LEFT MESSAGE FOR PRIETO.
--- NOTE | 2018-01-29 04:01 | NUR ---
CALLED [facility] BECAUSE THEY HAVE NOT CALLED BACK. ON HOLD WITH [facility]
--- NOTE | 2018-01-29 05:16 | NUR ---
[facility] CALLED BACK, I RECEIVED CASE NUMBER. THEY APOLOGIZED AND STATED IT SHOULD HAVE BEEN GIVEN EARLIER.
--- NOTE | 2018-01-29 05:17 | NUR ---
[facility] CONTACTED. THEY REQUESTED FACE SHEET AND STATED THEY WILL SEND SOMEONE OUT AFTER THEY RECEIVE IT
--- NOTE | 2018-01-29 06:40 | NUR ---
CALLED MORTUARY AGAIN. THEY STATED THAT THEY ARE STILL WAITING TO GET IN CONTACT WITH THEIR TRAFFIC ASSISTANT AND DO NOT HAVE AN ESTIMATED TIME
--- NOTE | 2018-01-29 07:22 | NUR ---
CALL PLACE TO [place] [phone] SPOKE TO ANJALI MATA, PER ESPERANZA THEY ARE ON THE WAY TO SLIDE FASTENER REPAIRER BODY, CHARGE NURSE PAULINO ROE
--- NOTE | 2018-01-29 10:45 | NUR ---
PATIENTS BROTHER HERLINDA DIEZ CAME IN TO SEE THE BODY CLARIFIED AND CHECKED HIS BELONGINGS AND HE STATED HE DOESN'T WANT TO TAKE HIS BELONGINGS AND ALSO HE CALLED HIS SISTER AND ASKED HER IF SHE WANTS ANY THING FROM HIS BELONGING HIS SISTER MARINO SAID NO FOR HIS BELONGINGS. NOTIFIED HERLINDA THAT THE BODY WILL [facility] AND PROVIDED THE PHONE NUMBER.
--- NOTE | 2018-01-29 11:00 | NUR ---
[facility] PICKED UP THE BODY , KEPT ALL THE BELONGINGS WITH THE SECURITY . ACCORDING WITH HIS BROTHER DOESN'T WANT HIS BELONGINGS JUST INCASE OTHER FAMILY WANTS IT HE WILL ASK THEM AND REQUESTED TO KEEP IT UNTIL THE END OF THE DAY AND WILL CALL BACK .
--- NOTE | 2018-01-29 12:25 | NUR ---
Tile Designer Notes: I met with Patient's Brother Tereso Stein to provide him with patient's information, resources for mortuary. During meeting Patient's limited information provided about family was discussed, as well unsuccessful search for family members despite several attempts to locate patient's family. Mr. Tereso Stein verbalized understanding and explained that Patient has been isolated from the family and did not kept contact with them at all for a while; Patient's brother stated " I have not see him or heard from him for about 2 years" Mr. Tereso Stein Follow up by saying " Im just glad he was here and that he was able to get care and services till the end; I am communicating with my sister and will be taking care of things from here on, I'll probably be the one making decisions and arrangements for him as Im sure he has no arrangements made" Patient's brother was sad and teary eye expressed his concerns and inquired for resources and mortuary services. These parts data writer validated Mr. Stein concerns and feelings about his brother's passed and provided information, such as list of mortuary in the area. Per Mr. Tereso Stein he will be conacting [facility] and will be making arrangements with them. Mrs. Tereso Stein provided his contact information to these parts data writer and Charge nurse; Thanked me for my assistance and left to make some call to the family.
[2018-01-30] MEDS ORDERED: fentaNYL 0.025 MG/HR PATCH TD SCH (14:30)
== END 2018-01-29 11:00 | disposition expired | DRG 374 ==
LOC: MED 19:29 → MTU 01-04 00:25
PROVIDERS: ADMIT Family Medicine; ATTEND Family Medicine
PROC: 0DB58ZX Excision of Esophagus, Via Natural or Artificial Opening Endoscopic, Diagnostic (ICD-10-PCS; principal; 2018-01-08 10:30)
DX: C15.9 Malignant neoplasm of esophagus, unspecified (principal); N17.0 Acute kidney failure with tubular necrosis; E43 Unspecified severe protein-calorie malnutrition; S72.142A Displaced intertrochanteric fracture of left femur, initial encounter for closed fracture; E87.0 Hyperosmolality and hypernatremia; C14.0 Malignant neoplasm of pharynx, unspecified; K22.2 Esophageal obstruction; R65.10 Systemic inflammatory response syndrome (SIRS) of non-infectious origin without acute organ dysfunction; E83.39 Other disorders of phosphorus metabolism; E83.41 Hypermagnesemia; F20.0 Paranoid schizophrenia; N39.0 Urinary tract infection, site not specified; R64 Cachexia; Z68.1 Body mass index [BMI] 19.9 or less, adult; I46.9 Cardiac arrest, cause unspecified; E78.5 Hyperlipidemia, unspecified; F43.22 Adjustment disorder with anxiety; E87.6 Hypokalemia; F31.9 Bipolar disorder, unspecified; G89.29 Other chronic pain; K52.9 Noninfective gastroenteritis and colitis, unspecified; E83.51 Hypocalcemia; R62.7 Adult failure to thrive; X58.XXXA Exposure to other specified factors, initial encounter; Z91.19 Patient's noncompliance with other medical treatment and regimen; Y93.89 Activity, other specified; Y92.89 Other specified places as the place of occurrence of the external cause; Y99.8 Other external cause status
CPT/HCPCS: 36415; 71045; 71270; 73502; 74220; 80048; 80053; 80305; 81003; 82040; 82140; 82150; 83036; 83605; 83690; 83735; 83880; 84100; 84439; 84443; 84484; 85025; 85610; 85730; 87040; 87086; 88305; 88342; 92526; 93005; 96361; 96374; 96375; 97799; 99285; J1200; J1630; J1885; J2060; J2250; J2270; J2405; J2543; J2550; J3010; J3475; J3480; J3490; J7030; J7060; Q0092; Q9967